=== PATIENT | male | born 1955 | race Caucasian/White ===

== ENCOUNTER 2018-03-25 07:59 | Outpatient (CLI) | payer MEDICARE, OTHER ==
[2018-03-25] MEDS ORDERED: ISOVUE-370 76%-LOCM 1 ML ONE (11:06)
== END 2018-03-25 08:00 | disposition home or self-care (01) ==
LOC: BICCT 07:59
DX: B18.2 Chronic viral hepatitis C (principal); K74.60 Unspecified cirrhosis of liver; R16.1 Splenomegaly, not elsewhere classified; K76.6 Portal hypertension; I83.90 Asymptomatic varicose veins of unspecified lower extremity; K86.89 Other specified diseases of pancreas
CPT/HCPCS: 74170

== ENCOUNTER 2018-10-01 07:34 | Outpatient (CLI) | payer MEDICARE, MEDICAID ==
--- NOTE | 2018-10-01 10:17 | ULT ---
ULTRASOUND HEPATIC DOPPLER: HISTORY: Hepatitis. COMPARISON: CT abdomen and pelvis from 03/25/2018. TECHNIQUE: Real-time song-scale, color Doppler, and spectral analysis of the abdomen was performed. FINDINGS: Hepatic echotexture is coarsened. There are numerous calcifications. The spleen is enlarged, measuring nearly 20 cm. There are splenic varices. Gallbladder wall thickness is normal. No sonographic Boles sign. Common bile duct is 4 mm. The pa ncreas is not well seen. The main portal vein is dilated with partial thrombosis. There is partial thrombosis of the splenic vein. IMPRESSION: 1. Partially thrombosed main portal vein and splenic vein. 2. Coarsened hepatic echotexture, suggesting cirrhosis. 3. Splenomegaly and portal hypertension. 4. Patent intrahepatic portal and hepatic veins. POS: [facility]
== END 2018-10-01 07:35 | disposition home or self-care (01) ==
LOC: BICULT 07:34
PROVIDERS: ATTEND Internal Medicine Transplant Hepatology
DX: B19.20 Unspecified viral hepatitis C without hepatic coma (principal); I81 Portal vein thrombosis; I82.890 Acute embolism and thrombosis of other specified veins; K76.89 Other specified diseases of liver; R16.1 Splenomegaly, not elsewhere classified; K76.6 Portal hypertension
CPT/HCPCS: 76705

== ENCOUNTER 2019-02-13 11:49 | Emergency (ER) | payer MEDICARE, MEDICAID ==
--- NOTE | 2019-02-13 13:16 | RAD ---
SACRUM AND COCCYX 3 VIEWS: Date: 02/13/19 HISTORY: Sacral pain. FINDINGS: SI joints are symmetric. There is no fracture of the sacrum or coccyx. IMPRESSION: No acute injury. POS: [facility]
--- NOTE | 2019-02-13 13:18 | RAD ---
LEFT HAND 3 VIEWS: Date: 02/13/19 HISTORY: Hand injury. FINDINGS: There is a slightly obliquely oriented fracture through the metacarpal head and neck region of the se cond metacarpal which appears acute. In addition, there is an obliquely oriented radial styloid fract ure and an avulsive-type injury of the ulnar styloid. There are arthritic changes noted. IMPRESSION: Acute appearing radial styloid and ulnar styloid fractures, also a probable acute to possibly subacut e injury involving the second metacarpal head/neck region. POS: [facility]
[2019-02-13] MEDS ORDERED: Ketorolac Tromethamine 30 MG/ML VIAL ONE (14:00)
== END 2019-02-13 14:21 | disposition home or self-care (01) ==
LOC: ERS 11:49
DX: S52.512A Displaced fracture of left radial styloid process, initial encounter for closed fracture (principal); S52.612A Displaced fracture of left ulna styloid process, initial encounter for closed fracture; S62.331A Displaced fracture of neck of second metacarpal bone, left hand, initial encounter for closed fracture; E11.40 Type 2 diabetes mellitus with diabetic neuropathy, unspecified; E11.43 Type 2 diabetes mellitus with diabetic autonomic (poly)neuropathy; K31.84 Gastroparesis; I10 Essential (primary) hypertension; D64.9 Anemia, unspecified; K72.90 Hepatic failure, unspecified without coma; K74.60 Unspecified cirrhosis of liver; W19.XXXA Unspecified fall, initial encounter
CPT/HCPCS: 72220; 96372; J1885

== ENCOUNTER 2019-02-15 08:57 | Day surgery (SDC) | payer MEDICARE, MEDICAID ==
[2019-02-14 13:52] VITALS: BMI 25.8
[2019-02-15] MEDS ORDERED: Fentanyl 250 MCG/5 ML VIAL ONE (11:23)
[2019-02-15] MEDS ORDERED: Bupivacaine PF 0.5% 30 ML VIAL ONE (11:26)
[2019-02-15] MEDS ORDERED: Bacitracin Zinc Ointment 30 gm TUBE ONE (11:27)
--- NOTE | 2019-02-15 12:12 | RAD ---
PORTABLE CHEST 1 VIEW: DATE: 02/15/2019. TIME: 10:59 a.m. HISTORY: Preoperative evaluation. FINDINGS: The heart size is borderline. There is evidence of old granulomatous disease. The lungs are expande d without lobar consolidation, pneumothoraces, or pleural effusions. IMPRESSION: No radiographic evidence of acute cardiopulmonary process. POS: [facility]
[2019-02-15] MEDS ORDERED: Neomycin-Polymyxin 1 ML AMP ONE (12:18)
[2019-02-15] MEDS ORDERED: Lidocaine 1% PF 5 ML VIAL ONE (13:19)
[2019-02-15] MEDS ORDERED: PROPOFOL 200 MG/20 ML VIAL ONE (13:19)
--- NOTE | 2019-02-15 13:20 | RAD ---
FExam:Left foot 3 views HISTORY: Postoperative exam. Amputation COMPARISON: None FINDINGS: There is soft tissue swelling. Subcutaneous air may be postoperative. There is destruction involving the second through fifth digits. Evaluation is limited due to positioning. There appears to be amputation of the second, third, and fourth metatarsals since the previous examination. Persisten t amputation and postoperative change involving the first metatarsal. IMPRESSION: Limited evaluation due to patient positioning. Interval amputation of the second through fourth metatarsal is suspected. Transcribed Date/Time: 02/15/2019 1:22 PM
--- NOTE | 2019-02-15 16:26 | OP ---
DATE OF PROCEDURE: 02/15/2019 PREOPERATIVE DIAGNOSES: 1. Chronic ulcer, left plantar foot. 2. Diabetic foot ulcer, left foot. 3. Plantarflexed metatarsals, 3 and 4, left foot. POSTOPERATIVE DIAGNOSES: 1. Chronic ulcer, left plantar foot. 2. Diabetic foot ulcer, left foot. 3. Plantarflexed metatarsals, 3 and 4, left foot. PROCEDURES PERFORMED: 1. Resection of metatarsal heads 3 and 4, left foot. 2. Debridement of full-thickness ulcer, left plantar foot. ANESTHESIA: General with local field block. HEMOSTASIS: Pneumatic ankle tourniquet at 300 mmHg. ESTIMATED BLOOD LOSS: Less than 20 mL. MATERIALS: 4-0 Vicryl and 3-0 Prolene. INJECTABLE: 20 mL of 0.5% Marcaine plain. DESCRIPTION OF PROCEDURE: The patient was brought into the operating room, placed on the operating table in supine position. A well-padded pneumatic ankle tourniquet was placed about the patient's left ankle following administration of IV anesthesia and local field block were given. Utilizing 20 mL of 0.5% Marcaine plain, the foot was then scrubbed, prepped, and draped in the usual aseptic manner. Esmarch bandage was used to exsanguinate the patient's left foot and the pneumatic ankle tourniquet was then inflated to 300 mmHg, which provided adequate hemostasis throughout the entire procedure. Next, attention was then directed to the dorsal aspect of the patient's left foot, where a 4 cm linear longitudinal incision was made between the third and fourth metatarsal heads. The incision was deepened to the level of the bone, where third and fourth metatarsal heads were carefully debrided of all soft tissue attachments, and they were resected using a sagittal bone saw. Fluoroscopy was used to assure that no remaining bone remain and none was noted at this time. The wound was irrigated with copious amounts of sterile normal saline and mixture. The skin was closed utilizing 4-0 Vicryl for deep closure and 3-0 Prolene for skin closure. Next, attention was then directed to the plantar aspect of the patient's foot where a 1.5 cm full-thickness ulcer was present and was debrided utilizing a #10 blade of all callus and necrotic tissue down to good bleeding tissue. A light compressive dressing was placed about the patient's left foot. The pneumatic ankle tourniquet was released with prompt hyperemic response was noted to all digits of the left foot. DISCHARGE SUMMARY: The patient tolerated the procedure and anesthesia and was transferred to the recovery room with vital signs stable and vascular status intact to all digits of the left foot. Following a period of postoperative monitoring, the patient is to be discharged home. Should he have any problems prior to the first postoperative appointment, he is advised to call and will be seen within 1 week of the procedure. Job ID: [id number]
--- NOTE | 2019-02-15 21:22 | EKG ---
Test Reason : PREOP Blood Pressure : / mmHG Vent. Rate : 082 BPM Atrial Rate : 082 BPM P-R Int : 208 ms QRS Dur : 066 ms QT Int : 412 ms P-R-T Axes : 015 -26 034 degrees QTc Int : 481 ms Normal sinus rhythm Prolonged QT Abnormal ECG When compared with ECG of 08-JUL-2014 02:01, No significant change was found Confirmed by GET MCDERMOTT, SFreddy ([id number]) on 02/15/2019 9:22:24 PM Referred By: LEROY Confirmed By:DR. Buzz DEUTSCH MD
--- NOTE | 2019-02-21 07:51 | PQF ---
[facility] POST DISCHARGE CLINICAL DOCUMENTATION IMPROVEMENT CLARIFICATION FORM w Todays Date: 02/17/19 w Patients Name DENZEL SHAIKH w w Admit Date 02/15/19 w Disch Date 02/15/19 Rn Unit Manager Name Dayron Friend Email: [email or web address] Cell: [phone] To be completed by Rn Unit Manager: Present Clinical Indicators - Signs / Symptoms Results and Location in Medical Record [ ] Documentation of: [ ] [ ] Documentation of: [ ] [ ] Documentation of: [ ] [ ] Documentation of: [ ] [ ] Risks [ ] [ ] [ ] Treatment [ ] Diabetic foot ulcer left foot Query for area (sq .cm) of debridement [ ] [ ] To be completed by Physician: ERICK MYRICK The documentation in this patients record requires clarification to ensure coding compliance and accuracy. Check the appropriate box and include in your discharge summary. [ ] [ ] [ ] [ ] Please check this box if this does not apply to this patient [ ] Unable to determine [ ] Other diagnosis: Review the following information and exercise your independent professional judgment in responding to the clarification. Based upon the clinical findings, risk factors, and treatment, please clarify if you are treating one of the above probable or suspected diagnoses. Physician Signature: Date Time MTDD
== END 2019-02-15 14:30 | disposition home or self-care (01) ==
LOC: SDC 08:57
PROVIDERS: ATTEND Podiatrist Foot & Ankle Surgery
PROC: 0QTP0ZZ Resection of Left Metatarsal, Open Approach (ICD-10-PCS; principal; 2019-02-15)
PROC: 0QTP0ZZ Resection of Left Metatarsal, Open Approach (ICD-10-PCS; 2019-02-15)
PROC: 0JBR0ZZ Excision of Left Foot Subcutaneous Tissue and Fascia, Open Approach (ICD-10-PCS; 2019-02-15)
DX: M21.6X2 Other acquired deformities of left foot (principal); E11.621 Type 2 diabetes mellitus with foot ulcer; L97.529 Non-pressure chronic ulcer of other part of left foot with unspecified severity; D68.9 Coagulation defect, unspecified; S52.572D Other intraarticular fracture of lower end of left radius, subsequent encounter for closed fracture with routine healing; S52.615D Nondisplaced fracture of left ulna styloid process, subsequent encounter for closed fracture with routine healing; Z79.84 Long term (current) use of oral hypoglycemic drugs; Z79.899 Other long term (current) drug therapy; W19.XXXD Unspecified fall, subsequent encounter
CPT/HCPCS: 36416; 71045; 76000; 93005; 93010; J0690; J2001; J2704; J3010; S0020

== ENCOUNTER 2019-02-25 12:51 | Day surgery (SDC) | payer MEDICARE, MEDICAID ==
[2019-02-24 11:46] VITALS: BMI 24.3
--- NOTE | 2019-02-25 13:43 | RAD ---
EXAM: Chest PA and lateral: HISTORY: Preoperative evaluation COMPARISON: 06/28/2015 FINDINGS: Stable old granulomatous disease. Heart size is normal. The lungs are clear. No confluent pneumonia, overt edema, pleural effusion, or other acute process. IMPRESSION: No significant acute intrathoracic disease.
[2019-02-25 13:54] LABS: #Eosinphils 0.3 thou/uL (0.0-0.7); #Lymphocytes 0.7 thou/uL (1.20-3.40); #Monocytes 0.3 thou/uL (0.11-0.59); %Basophils 0.9 % (0.0-1.0); %Eosinophils 9.4 % (0.0-10.0); %Lymphocytes 20.5 % (21.0-51.0); %Monocytes 9.5 % (0.0-10.0); %Neutrophils 59.7 % (42.0-75.0); Hemoglobin 8.7 g/dL (14.0-18.0); Mean Corpuscular Hemoglobin 30.5 pg (27.0-31.0); Mean Corpuscular Volume 89.7 fL (78.0-98.0); Mean Platelet Volume 10.6 fL (7.4-10.4); Platelet Count 48 thou/uL (130-400); RBC Distribution Width 15.7 % (11.5-14.5); Red Blood Cell (RBC) Count 2.85 mill/uL (4.70-6.10); White Blood Cell (WBC) Count 3.4 thou/uL (4.8-10.8)
[2019-02-25 14:22] LABS: Anion Gap 15 mmol/L (10-20); BUN (Urea Nitrogen) 62 mg/dL (8.4-25.7); Calc. Creatinine Clearance 51 mL/min (70-130); Calcium 9.6 mg/dL (7.8-10.44); Carbon Dioxide 27 mmol/L (23-31); Chloride 100 mmol/L (98-107); Estimated GFR-MDRD 47; Glucose 114 mg/dL (80-115); Potassium 4.7 mmol/L (3.5-5.1); Sodium 137 mmol/L (136-145)
[2019-02-25] MEDS ORDERED: PROPOFOL 200 MG/20 ML VIAL ONE (16:38)
[2019-02-25] MEDS ORDERED: ePHEDrine 50 MG/ML VIAL ONE (16:38)
[2019-02-25] MEDS ORDERED: Lidocaine 1% PF 5 ML VIAL ONE (16:38)
[2019-02-25] MEDS ORDERED: Bacitracin Zinc Ointment 30 gm TUBE ONE (16:40)
[2019-02-25] MEDS ORDERED: Bupivacaine PF 0.5% 30 ML VIAL ONE (16:40)
[2019-02-25] MEDS ORDERED: Fentanyl 100 MCG/2 ML VIAL ONE (16:44)
[2019-02-25] MEDS ORDERED: Thrombin 5000 UNITS/5 ML VIAL ONE (18:23)
--- NOTE | 2019-02-25 18:47 | RAD ---
Left wrist intraoperative fluoroscopy 3 views HISTORY: Fracture. FINDINGS: Intraoperative fluoroscopy was provided for internal fixation is performed by Dr. Rosas. Spot fluoroscopic images show operative placement of volar compression plate and screws transfixing a comminuted distal radial fracture, in anatomic alignment. Fluoroscopy time 75.5 seconds.
--- NOTE | 2019-02-28 11:15 | OP ---
DATE OF PROCEDURE: 02/25/2019 PREOPERATIVE DIAGNOSES: 1. Displaced distal radius fracture, 3 part. 2. Displaced ulna type 2 styloid fracture. 3. Moderate thrombocytopenia. PROCEDURES PERFORMED: 1. Open reduction and internal fixation of 3-part distal radius fracture. 2. Major bone grafting to distal radius fracture. 3. Only 2 mm scapholunate interval after reduction. 4. C-arm supervision. 5. Long-arm splint application. 6. Closed reduction of a distal ulna fracture. FINDINGS: Three-part distal radius fracture with 3-4 mm distal bone from the subarticular region requiring a low-profile hook type plate from the [employer] volar type and a displaced type 2 ulnar styloid fracture completely lying down when reduction was accomplished. No gross widening of scapholunate joint once reduction was accomplished, thus it was only a 2 mm scapholunate gap. DESCRIPTION OF PROCEDURE: After successful general endotracheal anesthesia, the limb was prepped and draped. Time-out was done appropriately. We exsanguinated the limb, inflated the tourniquet to 350 mmHg pressure. We then made a palmar incision centered over the flexor carpi radialis in the interval between the FCR and the radial artery to define the pronator quadratus. We then removed the distal pronator using a L-shaped incision ulnar base and retracted from the center of the field. We found the fracture. We elevated it. Found it was a 3-part fracture, so we protected the intra-articular split with a cross K-wire. It was again very thin 3-4 mm piece of bone, so once we elevated the fracture and reduced it, I pinned the preliminary. Then I took some bone graft, cancellous chips soaked in the patient's blood for 5 minutes, crushed this somewhat and then packed it more dorsal, then palmar to try to achieve slightly more tilt in the 15-degree dorsal tilt seen. Once this was done, we placed the low-profile special [employer] hook type plate up just articulating the palm in dorsal view, passed wire to hold it, extended it on the shaft, 5-hole subarticularly and then began internal fixation distally. First, we applied cortical screw, the first will be in the center portion of the holes, and once this was done, the plate was elevated off the bone approximately 1.5 cm. In order to achieve some tilt correction, we then put the first two screws in and drilled them and noted that they would be long enough for the cortex, we at the same time tightened the screws, removed the K-wire holding the radius fracture to the shaft. This took us from -15 over 15 degrees of dorsal tilt to a 3-degree dorsal tilt. This was acceptable. The patient then had the final 2 screws placed in to make sure there was no neurovascular compromise underneath it and it was not. We then released the tourniquet. We reviewed the x-rays, frontal plane, dorsal to palmar, and palmar to dorsal, as well as sagittal plane. The reduction was anatomic. We still 1.5 mm radial positive . The ulnar styloid appeared to be in excellent contact. We did not open it and did not internally fix it. Then the patient had the tourniquet deflated, one screw was exchanged, too long in the shaft, and the patient had the ulnar styloid fracture preserved nearly anatomic with only 1 mm separation where there was some crush. The patient then had the subcutaneous closure completed with a running 4-0 Monocryl and then the skin reapproximated with 4-0 nylon. Bulky dressing applied along with a sugar-tong splint. The patient left the operating room without evidence of anesthetic operative complication. Job ID: [id number]
--- NOTE | 2019-02-28 22:38 | EKG ---
Test Reason : PREOP Blood Pressure : / mmHG Vent. Rate : 112 BPM Atrial Rate : 110 BPM P-R Int : 000 ms QRS Dur : 066 ms QT Int : 324 ms P-R-T Axes : 000 -32 024 degrees QTc Int : 442 ms Accelerated Junctional rhythm Left axis deviation Minimal voltage criteria for LVH, may be normal variant Nonspecific ST abnormality Abnormal ECG When compared with ECG of 15-FEB-2019 10:59, Junctional rhythm has replaced Sinus rhythm Confirmed by Davina URENA ([id number]) on 02/28/2019 10:37:51 PM Referred By: YUNIER Confirmed By:Davina URENA
== END 2019-02-25 21:03 | disposition home or self-care (01) ==
LOC: SDC 12:51
PROVIDERS: ATTEND Orthopaedic Surgery Hand Surgery
PROC: 0PSJ04Z Reposition Left Radius with Internal Fixation Device, Open Approach (ICD-10-PCS; principal; 2019-02-25)
DX: S52.502A Unspecified fracture of the lower end of left radius, initial encounter for closed fracture (principal); S52.612A Displaced fracture of left ulna styloid process, initial encounter for closed fracture; E11.9 Type 2 diabetes mellitus without complications; Z91.81 History of falling
CPT/HCPCS: 25609; 71046; 73110; 76000; 80048; 85025; 93005; C1713 ×2; 36415; 93010; J0690; J2001; J2704; J3010; J3490; S0020

== ENCOUNTER 2019-03-29 09:04 | Outpatient (CLI) | payer MEDICARE, MEDICAID ==
--- NOTE | 2019-03-29 13:13 | MRI ---
MRI ABDOMEN WITH AND WITHOUT IV CONTRAST: HISTORY: Chronic hepatitis C. Cirrhosis of the liver. FINDINGS: There is irregularity of the liver surface, consistent with cirrhosis. There are AV shunts within th e liver. No enhancing liver mass is identified to suggest HCC. Multiple gallstones are present. Th e spleen is enlarged, measuring 19 cm. Thrombosis of the extrahepatic main portal vein, extending in to portions of the splenic vein and SMV is noted. The splenic vein is dilated. Splenic and gastroes ophageal varices are present. There is no evidence of ascites. No aneurysmal dilatation of the abdominal aorta is seen. No lympha denopathy is noted. There is a 2 cm right renal mass with high T1 and low T2 signal, consistent with hemorrhagic cyst. Bone marrow signal is normal. There are tiny siderotic nodules in the liver and spleen. IMPRESSION: 1. Cirrhosis of the liver without evidence of hepatocellular carcinoma. 2. Splenomegaly. 3. 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 4. Cholelithiasis. 5. Splenic and gastroesophageal varices. 6. A 2 cm right renal hemorrhagic cyst. POS: [facility]
== END 2019-03-29 09:05 | disposition home or self-care (01) ==
LOC: BICMRI 09:04
PROVIDERS: ATTEND Internal Medicine Transplant Hepatology
DX: B18.2 Chronic viral hepatitis C (principal); K74.60 Unspecified cirrhosis of liver; R16.1 Splenomegaly, not elsewhere classified; I81 Portal vein thrombosis; K80.20 Calculus of gallbladder without cholecystitis without obstruction; I85.00 Esophageal varices without bleeding; I86.8 Varicose veins of other specified sites; I82.890 Acute embolism and thrombosis of other specified veins; N28.1 Cyst of kidney, acquired
CPT/HCPCS: 74183; 82565

== ENCOUNTER 2019-08-16 20:04 | Inpatient (IN) | payer MEDICARE, MEDICAID ==
--- NOTE | 2019-08-16 20:34 | RAD ---
RADIOGRAPH CHEST 1 VIEW: DATE: 08/16/2019 HISTORY: 64-year-old male with fever FINDINGS: There are no airspace densities, pulmonary edema, pneumothorax, or cardiomegaly. The lateral costophr enic angles are sharp. IMPRESSION: No acute cardiopulmonary findings.
[2019-08-16 20:35] LABS: Hemoglobin 8.3 g/dL (14.0-18.0); Mean Corpuscular HGB CONC 35.7 g/dL (32.0-36.0); Mean Corpuscular Hemoglobin 32.8 pg (27.0-31.0); Mean Platelet Volume 11.4 fL (7.4-10.4); Platelet Count 30 thou/uL (130-400); RBC Distribution Width 14.3 % (11.5-14.5); Red Blood Cell (RBC) Count 2.54 mill/uL (4.70-6.10); White Blood Cell (WBC) Count 6.5 thou/uL (4.8-10.8)
[2019-08-16 20:51] LABS: #Lymphocytes 0.3 thou/uL (1.20-3.40); #Monocytes 0.5 thou/uL (0.11-0.59); #Neutrophils 5.8 thou/uL (1.40-6.50); %Basophils 0.2 % (0.0-1.0); %Eosinophils 0.3 % (0.0-10.0); %Lymphocytes 3.9 % (21.0-51.0); %Monocytes 7.3 % (0.0-10.0); %Neutrophils 88.3 % (42.0-75.0); Platelet Morphology Comment Appears Decreased
[2019-08-16] MEDS ORDERED: Piperacillin/Tazobactam 3.375 GM VIAL ONE (20:51)
[2019-08-16 20:57] LABS: ALT (SGPT) 19 U/L (8-55); AST (SGOT) 20 U/L (5-34); Albumin 3.5 g/dL (3.4-4.8); Alkaline Phosphatase 85 U/L (40-110); Anion Gap 17 mmol/L (10-20); BUN (Urea Nitrogen) 71 mg/dL (8.4-25.7); Bilirubin, Total 3.7 mg/dL (0.2-1.2); CK (CPK) 91 U/L (30-200); Calc. Creatinine Clearance 0 mL/min (70-130); Calcium 8.6 mg/dL (7.8-10.44); Carbon Dioxide 23 mmol/L (23-31); Chloride 88 mmol/L (98-107); Estimated GFR-MDRD 38; Globulin 3.7 g/dL (2.4-3.5); Glucose 549 mg/dL (80-115); Lipase 25 U/L (8-78); Potassium 4.6 mmol/L (3.5-5.1); Protein, Total 7.2 g/dL (5.8-8.1); Sodium 123 mmol/L (136-145)
--- NOTE | 2019-08-16 21:48 | RAD ---
Radiograph right foot 3 views: DATE: 08/16/2019 HISTORY: 64-year-old male with right foot wound. Traumatic injury after fall 2 days ago. COMPARISON: 04/18/2016. FINDINGS: Previously, there was amputation at the head of the second proximal phalanx. Now, there has been furt her erosion of that second proximal phalanx, with well-corticated margins, and only the proximal metaphysis and base remaining, except for a thin midline stalk of the diaphysis. Again noted is the severe deformity of the head of the first proximal phalanx such that there is nancy re valgus angulation of the first IP joint. It is difficult to evaluate for acute fracture in this location because of the distortion of anatomy. Elsewhere, there is no evidence of acute fracture or dislocation. The rest of the joints are unremark able. There is diffuse soft tissue edema, greater than on the prior study. No permeative, destructive osseous lesion or periostitis identified. Tiny erosion at medial base of first proximal p halanx. Diffuse osteopenia. Flat foot. IMPRESSION: 1. Diffuse soft tissue edema. 2. Old amputation and further chronic erosion of the proximal phalanx of second toe. 3. Severe valgus angulation at first distal interphalangeal joint. 4. No acute fracture identified. 5. Pes planus.
--- NOTE | 2019-08-16 21:53 | RAD ---
Radiograph left foot 3 views: DATE: 08/16/2019 HISTORY: 64-year-old male status post fall. Left foot wound. FINDINGS: Diffuse soft tissue edema. Flatfoot. Hammertoes. Absence of heads and necks of third and fourth metat arsals. The third and fourth proximal, middle, and distal phalanges remain. Chronic appearing dislocation of second MTP joint. Chronic Bony hypertrophy and deformity of bases of second and third proximal phalanges. Amputation at proximal-mid diaphysis of first metatarsal. No destructive osseous lesion identified. IMPRESSION: 1. No acute fracture identified. 2. Chronic changes, including dislocation, amputation, and resections of metatarsal heads. 3. Diffuse soft tissue edema.
[2019-08-16 22:41] LABS: Bacteria/HPF None Seen HPF (None Seen); Bilirubin Negative (Negative); Blood, Urine 1+ (Negative); Clarity Clear (Clear); Glucose, Urine (Dipstick) Greater than 1000 mg/dL (Negative); Leukocyte Negative Leu/uL (Negative); Nitrite Negative (Negative); Protein, Urine (Dipstick) 20 mg/dL (Neg-Trace); RBC/HPF 0-3 HPF (0-3); Squamous Epithelial None Seen HPF (0-3); Urobilinogen Normal mg/dL (Less than 2); WBC/HPF 0-3 HPF (0-3)
[2019-08-16] MEDS ORDERED: Insulin Regular 300 UNITS/3 ML VIAL ONE (23:19)
[2019-08-16] MEDS ORDERED: Dextrose 5% in Water 1,000 ML IV PRN (23:52)
[2019-08-16] MEDS ORDERED: HumaLOG 300 UNITS/3 ML VIAL SC PRN ×2 (23:52)
[2019-08-16] MEDS ORDERED: Acetaminophen 325 MG TAB PO PRN (23:52)
[2019-08-16] MEDS ORDERED: Dextrose 50% Abboject 50 ML SYRINGE SLOW IVP PRN (23:52)
[2019-08-17 00:16] VITALS: BMI 22.1
[2019-08-17] MEDS: Lactated Ringer's 1,000 ML IV SCH ×2 (00:48→10:08)
[2019-08-17 01:00] LABS: Lactic Acid 3.1 mmol/L (0.5-2.2)
[2019-08-17] MEDS ORDERED: TETANUS AND DIPHTHERIA TOX/PF 0.5 ML DISP.SYRIN IM ONE (01:00)
[2019-08-17] MEDS ORDERED: Promethazine 25 MG TAB PO PRN (01:17)
--- NOTE | 2019-08-17 03:04 | PDOC.FPRHP ---
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 Patient was seen at [facility] on 07/21 and started on a 7-day course of keflex and bactrim for LE cellulitis. He was seen again on 08/02 and his wounds had appeared improved at that time. Today he presents with drainage from the wounds on his feet bilaterally. He reports a measured temperature at home of 103. He denies pain at this time, as he cannot feel the bottom of his feet. He has a history of amputation of his first toe on his left foot and partial amputation of the second toe on his left foot. His most recent A1C from 2018 is 6.8%. Otherwise denies cp, sob, abdominal pain at this time. ED Course: Started on vanc, zosyn, 2L NS, 10u short acting insulin - Allergies/Adverse Reactions Allergies Allergy/AdvReac Type Severity Reaction Status Date / Time No Known Allergies Allergy Verified 02/24/19 11:46 - Home Medications Medication Instructions Recorded Confirmed Type Rifaximin [Xifaxan] 550 mg PO BID 08/29/13 08/17/19 History Spironolactone 200 mg PO QAM 08/29/13 08/17/19 History Pantoprazole [Protonix] 20 mg PO BID 09/16/14 08/17/19 History Promethazine HCl 25 mg PO TID PRN 09/18/15 08/17/19 History metFORMIN HCl [Glucophage] 1,000 mg PO BID-WM 09/18/15 08/17/19 History Furosemide [Lasix] 80 mg PO BID #0 tab 06/30/16 08/17/19 Rx METHadone HCl [Methadose] 40 mg PO QAM 02/14/19 08/17/19 History Insulin Glargine,Hum.Rec.Anlog 86 unit SQ QAM 02/24/19 08/17/19 History [Toujeo Solostar] Propranolol [Inderal] 2 tab PO DAILY 08/17/19 08/17/19 History - History PMHx: DM2, HTN, 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 denies: eye pain ENT: denies: nasal congestion, rhinorrhea Respiratory: denies: cough, congestion, shortness of breath Cardiovascular: denies: chest pain, palpitation Gastrointestinal: denies: nausea, vomiting, diarrhea, abdominal pain Genitourinary: denies: incontinence, dysuria Skin: reports: jaundice. denies: rashes Musculoskeletal: denies: pain, tenderness Neurological: reports: numbness (bilateral feet). denies: syncope, seizure Psychological: denies: anxiety, depression - Vital signs BP: [155/67] HR: [97] RR: [18] Tmax: [99.8] Pox: [98]% on [RA] Wt: [68.039kg] - Physical Exam Constitutional: NAD, awake, alert and oriented HEENT: grossly normal hearing, MMM -HEENT: sceral icterus present Neck: supple, trachea midline Chest: no-tender to palpation, no lesions Heart: RRR, normal S1/S2, other (murmur appreciated, 1+ pitting edema) Lungs: CTAB, no respiratory distress Abdomen: soft, non-tender Musculoskeletal: normal structure, normal tone Neurological: CN II-XII intact, other (numbness both feet bilaterally) Skin: other (jaundice, poor turgor; ulcerations draining on the bottom of both feet; left first toe and part of right second toe missing; discoloration of skin up to thigh) Heme/Lymphatic: no unusual bruising or bleeding, no purpura Psychiatric: normal mood and affect, good judgment and insight FMR H&P: Results - Labs Result Diagrams: 08/16/19 20:21 08/16/19 20:21 Lab results: WBC 6.5 thou/uL (4.8-10.8) 08/16/19 20:21 Hgb 8.3 g/dL (14.0-18.0) L 08/16/19 20:21 Hct 23.3 % (42.0-52.0) L 08/16/19 20:21 MCV 92.0 fL (78.0-98.0) 08/16/19 20:21 Plt Count 30 thou/uL (130-400) L 08/16/19 20:21 Neutrophils % 88.3 % (42.0-75.0) H 08/16/19 20:21 ESR Westergren 21 mm/hr (Less than 20) 08/16/19 20:54 Sodium 123 mmol/L (136-145) L 08/16/19 20:21 Potassium 4.6 mmol/L (3.5-5.1) 08/16/19 20:21 Chloride 88 mmol/L (98-107) L 08/16/19 20:21 Carbon Dioxide 23 mmol/L (23-31) 08/16/19 20:21 BUN 71 mg/dL (8.4-25.7) H 08/16/19 20:21 Creatinine 1.81 mg/dL (0.7-1.3) H 08/16/19 20:21 Glucose 549 mg/dL (80-115) H 08/16/19 20:21 Lactic Acid 3.1 mmol/L (0.5-2.2) H 08/17/19 00:35 Calcium 8.6 mg/dL (7.8-10.44) 08/16/19 20:21 Total Bilirubin 3.7 mg/dL (0.2-1.2) H 08/16/19 20:21 AST 20 U/L (5-34) 08/16/19 20:21 ALT 19 U/L (8-55) 08/16/19 20:21 Alkaline Phosphatase 85 U/L (40-110) 08/16/19 20:21 Creatine Kinase 91 U/L (30-200) 08/16/19 20:21 C-Reactive Protein 21.32 mg/dL (= or < 0.5) H 08/16/19 20:21 B-Natriuretic Peptide 149.2 pg/mL (0-100) H 08/16/19 20:21 Serum Total Protein 7.2 g/dL (5.8-8.1) 08/16/19 20:21 Albumin 3.5 g/dL (3.4-4.8) 08/16/19 20:21 Lipase 25 U/L (8-78) 08/16/19 20:21 Urine Ketones Negative mg/dL (Negative) 08/16/19 22:00 Urine Blood 1+ (Negative) A 08/16/19 22:00 Urine Nitrite Negative (Negative) 08/16/19 22:00 Ur Leukocyte Esterase Negative Trace/uL (Negative) 08/16/19 22:00 Urine RBC 0-3 HPF (0-3) 08/16/19 22:00 Urine WBC 0-3 HPF (0-3) 08/16/19 22:00 Ur Squamous Epith Cells None Seen HPF (0-3) 08/16/19 22:00 Urine Bacteria None Seen HPF (None Seen) 08/16/19 22:00 - Radiology Interpretation Chest x-ray Status: report reviewed by me (no acute cardiopulmonary findings) Other Status: report reviewed by me Additional comment: L foot xray: no acute fracture, chronic changes (dislocation, amputation, and resections of metatarsal heads), diffuse soft tissue edema R foot xray: diffuse soft tissue edema, old amputation and further chronic erosion of the proximal phalanx of second toe, severe valgus angulation at first distal interphalangeal joint FMR H&P: A/P - Problem List (1) Diabetic foot infection Current Visit: Yes Status: Acute Code(s): E11.628 - TYPE 2 DIABETES MELLITUS WITH OTHER SKIN COMPLICATIONS; L08.9 - LOCAL INFECTION OF THE SKIN AND SUBCUTANEOUS TISSUE, UNSP (2) Chronic back pain Current Visit: No Status: Chronic Code(s): M54.9 - DORSALGIA, UNSPECIFIED; G89.29 - OTHER CHRONIC PAIN (3) Cirrhosis Current Visit: No Status: Chronic Code(s): K74.60 - UNSPECIFIED CIRRHOSIS OF LIVER Qualifiers: Ascites presence: without ascites (4) Insulin dependent diabetes mellitus Current Visit: No Status: Chronic Code(s): E11.9 - TYPE 2 DIABETES MELLITUS WITHOUT COMPLICATIONS; Z79.4 - GROUP HOME (CURRENT) USE OF INSULIN (5) Methadone dependence Current Visit: No Status: Chronic Code(s): F11.20 - OPIOID DEPENDENCE, UNCOMPLICATED - Plan Patient is a 64M with PMHx significant for DM2, HTN, 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 #Bilateral Diabetic foot infections -started on vanc and zosyn in the ED, continue -pharmacy helping to dose, will monitor troughs -patient reports fever at home, afebrile here -WBC wnl 6.5 -IVF -NPO at midnight -patient had foot surgery with Dr. Duncan February 2019, will consult and appreciate recs -wound care consult -does not appear that patient has had a recent tetanus injection, ordered #DM2, with hyperglycemia -BG 549 -January 2019 A1C 6.8%, on tuojeo at home -continue home meds -ISS -accuchecks #HTN -BP in ED 155/67 -continue home meds -continue to monitor #HLD -continue home meds #Cirrhosis 2/2 Hep C -continue home meds -will avoid liver toxicity medications #Thrombocytopenia -platelets 30, likely 2/2 liver cirrhosis -will continue to monitor #Opiate dependence -continue methadone DVT ppx:scds Fluids: LR @ 100 Dispo: inpatient for iv abx and surgical consult Code: full FMR H&P: Upper Level - Pertinent history 64 yo M here with complaint of b/l foot wound redness. He was dx'd with infected DM2 related foot wounds at the beginning of Jul and treated with 2 weeks of PO abx. At that time he was seen in clinic and abx were stopped due to resolution of over infection. At that time he was referred to wound care, however this was not started by pt. He noticed over the past 2 days a worsening of the redness and swelling in his legs. In the ED he was noted to have significant erythema to both feet. He was started on IV vanc and zosyn and blood cultures were collected. PMHx DM2 Cirrhosis Hx of Hep C, treated Hx of Rheumatic fever Opiate dependence HTN Surgical Hx Previous toe amputations on both feet Social hx previous etoh abuse. No tobacco. Previous marijuana use - Pertinent findings See international account manager note for full ROS, PE, vitals, and labs ROS General denies fever or chills CV Denies CP, palpitation, or chronic peripheral edema Resp complains of SOB. Denies cough GI denies melanotic stool, BRBPR, n/v/d/c or abdominal pain denies increased frequency or dysuria Neuro complains of numbness in both feet. Extremities complains of redness in both feet. PE General A&O x4, NAD HEENT NCAT, no jaundice CV RRR, no murmur Resp CTA, no respiratory distress Abd Abdomen is distended, however soft and non tender. No fluid wave appreciated. Extremities Erythema and edema on both feet. Foot ulcer on plantar surface of both feet. No exudate. Equal pedal pulses. No asterixis Neuro no focal deficits, CN II-XII intact - Plan Date/Time: 08/17/19 0258 I, Fabio Marques DO, have evaluated this patient and agree with findings/plan as outlined by international account manager resident. Pertinent changes/additions are listed here. 1. Bilateral pedal cellulitis, failed outpatient therapy - Plan to admit for IV abx and surgical evaluation. Would expect debridement in the morning - Admit to medicine, NPO at midnight - Continue abx until cultures result. 2. DM2 - uncontrolled at this time, however A1c from March of this year shows A1c less than 8. It is most likely that his elevated glucose is related to the infection - restart home meds - cover with SSI - accucheck achs 3. Opiate dependence - continue methadone 4. Cirrhosis - does not appear to be decompensated at this time - continue home meds See international account manager portion for management of other stable chronic conditions Code Full Diet NPO at midnight PPx SCD Dispo: overall prognosis for this hospitalization is good. Would expect length of stay to be 2-3 days pending surgical evaluation
[2019-08-17] MEDS: Piperacillin/Tazobactam 3.375 GM in Sodium Chloride 0.9% 100 ML IVPB SCH ×4 (03:09→20:10)
[2019-08-17 05:40] LABS: #Eosinphils 0.1 thou/uL (0.0-0.7); #Lymphocytes 0.4 thou/uL (1.20-3.40); #Monocytes 0.6 thou/uL (0.11-0.59); #Neutrophils 4.6 thou/uL (1.40-6.50); %Eosinophils 1.4 % (0.0-10.0); %Lymphocytes 6.3 % (21.0-51.0); %Monocytes 10.8 % (0.0-10.0); %Neutrophils 81.5 % (42.0-75.0); Hemoglobin 7.8 g/dL (14.0-18.0); Mean Corpuscular HGB CONC 35.7 g/dL (32.0-36.0); Mean Corpuscular Hemoglobin 33.4 pg (27.0-31.0); Mean Corpuscular Volume 93.5 fL (78.0-98.0); Mean Platelet Volume 10.3 fL (7.4-10.4); Platelet Count 39 thou/uL (130-400); RBC Distribution Width 14.3 % (11.5-14.5); Red Blood Cell (RBC) Count 2.32 mill/uL (4.70-6.10); White Blood Cell (WBC) Count 5.6 thou/uL (4.8-10.8)
[2019-08-17 05:55] LABS: Anion Gap 13 mmol/L (10-20); BUN (Urea Nitrogen) 63 mg/dL (8.4-25.7); Calc. Creatinine Clearance 44 mL/min (70-130); Calcium 8.4 mg/dL (7.8-10.44); Carbon Dioxide 23 mmol/L (23-31); Chloride 96 mmol/L (98-107); Estimated GFR-MDRD 44; Glucose 271 mg/dL (80-115); Potassium 3.8 mmol/L (3.5-5.1); Sodium 128 mmol/L (136-145)
--- NOTE | 2019-08-17 06:14 | PDOC.FM ---
- Subjective Subjective: Pt's main concern this morning is a jagged tooth that is bother his tongue. He denies any fever, chills over night. Minimal pain in lower extremities. - Objective Vital Signs & Weight: Vital Signs (12 hours) Temp Pulse Resp BP BP Pulse Ox 08/17/19 04:00 97.7 F 86 18 113/54 L 98 08/17/19 01:02 98 08/17/19 00:16 97.8 F 86 18 147/57 H 98 Weight Weight 68.039 kg Result Diagrams: 08/17/19 05:06 08/17/19 05:06 Phys Exam - Physical Examination Constitutional: NAD HEENT: oral pharynx no lesions Mild scleral icterus, no tongue lesions, multiple dental carries Neck: no nodes, no JVD, full ROM Respiratory: clear to auscultation bilateral Cardiovascular: RRR holosystolic murmur, known to pt Distended, moderately tympanic Musculoskeletal: edema present 1+ bilateral LE edema Neurological: non-focal, moves all 4 limbs Psychiatric: A&O x 3 Deviation from normal: Bilateral feet dressings are clean and dry, LE w/ venous stasis changes Dx/Plan (1) Thrombocytopenia Code(s): D69.6 - THROMBOCYTOPENIA, UNSPECIFIED Status: Acute (2) Diabetic foot infection Code(s): E11.628 - TYPE 2 DIABETES MELLITUS WITH OTHER SKIN COMPLICATIONS; L08.9 - LOCAL INFECTION OF THE SKIN AND SUBCUTANEOUS TISSUE, UNSP Status: Acute (3) Diabetic foot ulcer Code(s): E11.621 - TYPE 2 DIABETES MELLITUS WITH FOOT ULCER; L97.509 - NON- PRESSURE CHRONIC ULCER OTH PRT UNSP FOOT W UNSP SEVERITY Status: Chronic Qualifiers: Diabetes mellitus type: type 2 Laterality: left (4) Hepatic cirrhosis due to chronic hepatitis C infection Code(s): B18.2 - CHRONIC VIRAL HEPATITIS C; K74.60 - UNSPECIFIED CIRRHOSIS OF LIVER Status: Chronic (5) Insulin dependent diabetes mellitus Code(s): E11.9 - TYPE 2 DIABETES MELLITUS WITHOUT COMPLICATIONS; Z79.4 - AUTOCLAVE OPERATOR (CURRENT) USE OF INSULIN Status: Chronic (6) Methadone dependence Code(s): F11.20 - OPIOID DEPENDENCE, UNCOMPLICATED Status: Chronic (7) Acute worsening of stage 3 chronic kidney disease Code(s): N18.3 - CHRONIC KIDNEY DISEASE, STAGE 3 (MODERATE) Status: Acute - Plan Plan: Bilateral Diabetic foot infections - Cont vanc and zosyn - WBC wnl 5.6 with left shift - IVF - NPO at midnight - patient had foot surgery with Dr. Duncan February 2019, will consult and appreciate recs - wound care consult DM2, with hyperglycemia - BG 549 upon arrival - January 2019 A1C 6.8%, on tuojeo and metformin at home - ISS - accuchecks Acute injury on chronic CKD 3 - Cr improved this morning approaching baseline - Likely improved 2/2 fluid resuscitation - pre-renal azotemia present HTN - BP in ED 155/67 - continue home meds - continue to monitor HLD - continue home meds Cirrhosis 2/2 Hep C - continue home meds - will avoid liver toxicity medications - coags ordered, will calculate MELD and Child-Polanco once once labs result Thrombocytopenia - platelets 30, likely 2/2 liver cirrhosis - will continue to monitor Opiate dependence - continue methadone DVT ppx:scds Fluids: LR @ 100 Dispo: inpatient for iv abx and surgical consult Code: full Addendum - Attending - Attending Attestation Date/Time: 08/17/19 2969 I personally evaluated the patient and discussed the management with Dr. Uribe. I agree with the History, Examination, Assessment and Plan documented above with any addition or exceptions noted below. Pt with foul smelling drainage from foot. Consulting Dr. Lucy Duncan who has operated on the patient's foot previously. Continue antibiotics.
[2019-08-17] MEDS ORDERED: Prevnar 13-Val Conj/PF 0.5 ML SYRINGE IM ONE (09:00)
[2019-08-17] MEDS ORDERED: FLU VACC TS2019-20(65YR UP)/PF 180 MCG/0.5 ML SYRINGE IM ONE (09:00)
[2019-08-17] MEDS ORDERED: VANCOMYCIN HCL IVPB SCH (09:00)
[2019-08-17] MEDS ORDERED: SODIUM CHLORIDE 0.9% IVPB SCH (09:00)
[2019-08-17] MEDS: metFORMIN 500 MG TAB PO SCH ×2 (09:57→18:04)
[2019-08-17] MEDS: Furosemide 80 MG TAB PO SCH ×2 (09:57→21:36)
[2019-08-17] MEDS: Rifaximin 550 MG TAB PO SCH ×2 (09:57→21:36)
[2019-08-17] MEDS: Propranolol 10 MG TAB PO SCH (09:57)
[2019-08-17] MEDS: METHadone HCl 10 MG TAB PO SCH (09:58)
[2019-08-17] MEDS: Insulin Glargine 68 UNITS in Pre-Filled Syringe 1 EACH SC SCH ×2 (09:59→12:48)
[2019-08-17 11:13] LABS: PTT 31.1 SEC (22.9-36.1); Prothrombin Time 22.2 SEC (12.0-14.7)
[2019-08-17] MEDS ORDERED: Lorazepam 2 MG/ML VIAL SLOW IVP SCH (16:00)
[2019-08-17 18:34] LABS: Lactic Acid 2.8 mmol/L (0.5-2.2)
--- NOTE | 2019-08-17 18:58 | MRI ---
MRI OF LEFT FOOT WITH AND WITHOUT IV CONTRAST: 08/17/19 PROVIDED CLINICAL HISTORY: Wound, evidence for osteomyelitis. FINDINGS: Correlation is made with foot radiographs dated 08/16/19. Examination is extremely limited due to patient motion. There is postoperative change of the second, third and fourth metatarsal heads noted as well as an amputation of the first ray at the mid first me tatarsal. There is no definite signal alteration within the regional marrow to suggest osteomyelitis within limitations established above. There is possibly a fluid collection within the plantar soft ti ssues at the level of the second metatarsal head, although this is not completely certain. This leeann ures possibly 7 mm. No gross tenosynovial fluid or joint effusion is evident. IMPRESSION: Markedly limited exam without definite evidence for osteomyelitis. Possible 7 mm plantar soft tissue fluid collection at the base of remaining second metatarsal distally. Correlate with concerns for abs cess. POS: GOYO
--- NOTE | 2019-08-17 19:08 | MRI ---
MRI OF RIGHT FOOT WITH AND WITHOUT IV CONTRAST: 08/17/19 PROVIDED CLINICAL HISTORY: Evidence for osteomyelitis, wound near toes. FINDINGS: Comparison is made with radiographs dated 08/16/19. Presumed postsurgical absence of the distal second digit. Evaluation is limited by patient motion. There is diminished signal intensity on T1 weighted sequence s and increased signal intensity on fluid sensitive sequences involving the great toe distal phalanx with associated contrast enhancement. No definite additional regional signal abnormality is evident i nvolving the marrow. Diffuse nonspecific signal alteration within the intrinsic foot musculature. No gross evidence for regional joint effusion or soft tissue fluid collection. IMPRESSION: 1. Limited study due to patient motion. 2. Signal alteration involving the great toe distal phalanx, compatible with osteomyelitis in th e appropriate clinical context. POS: GOYO
[2019-08-17] MEDS ORDERED: Gadobenate Dimeglumine 529 MG/1 ML (20ML VIAL) ONE (20:51)
[2019-08-17] MEDS: Vancomycin HCl 1 GM in Premix Bag 1 BAG IVPB SCH (21:36)
[2019-08-18] MEDS: Piperacillin/Tazobactam 3.375 GM in Sodium Chloride 0.9% 100 ML IVPB SCH ×4 (03:10→20:52)
[2019-08-18] MEDS: Lactated Ringer's 1,000 ML IV SCH ×3 (03:15→16:55)
--- NOTE | 2019-08-18 06:21 | PDOC.FM ---
- Subjective Subjective: Patient denies any complaints this morning. Denies any abdominal pain, nausea, vomiting, bright red blood or dark stools. Patient stated that he has been anemic in the past but does not recall it if he ever needed transfusions. Patient reported that he felt the day of his admission falling flat onto a tile floor and not hitting anything on the way down. Denies any injury from this aside from some small bruises on his abdomen. . - Objective Vital Signs & Weight: Vital Signs (12 hours) Temp Pulse Resp BP Pulse Ox 08/18/19 04:00 98.2 F 66 18 122/57 L 98 08/17/19 23:44 98.7 F 66 18 102/64 99 08/17/19 20:00 98.3 F 67 18 120/64 96 Weight Admit Weight 68.039 kg Weight 68.039 kg Result Diagrams: 08/18/19 05:38 08/18/19 05:38 Phys Exam - Physical Examination Constitutional: NAD scleral icterus Neck: full ROM Respiratory: clear to auscultation bilateral Cardiovascular: RRR systolic murmur Gastrointestinal: soft, positive bowel sounds mildly distended, 2 areas of ecchymosis to left and right mid abd Musculoskeletal: no edema, pulses present Neurological: non-focal bilateral UE tremor Psychiatric: A&O x 3 Skin: cap refill <2 seconds Deviation from normal: jaundice Dx/Plan (1) Thrombocytopenia Code(s): D69.6 - THROMBOCYTOPENIA, UNSPECIFIED Status: Acute (2) Diabetic foot infection Code(s): E11.628 - TYPE 2 DIABETES MELLITUS WITH OTHER SKIN COMPLICATIONS; L08.9 - LOCAL INFECTION OF THE SKIN AND SUBCUTANEOUS TISSUE, UNSP Status: Acute (3) Diabetic foot ulcer Code(s): E11.621 - TYPE 2 DIABETES MELLITUS WITH FOOT ULCER; L97.509 - NON- PRESSURE CHRONIC ULCER OTH PRT UNSP FOOT W UNSP SEVERITY Status: Chronic Qualifiers: Diabetes mellitus type: type 2 Laterality: left (4) Hepatic cirrhosis due to chronic hepatitis C infection Code(s): B18.2 - CHRONIC VIRAL HEPATITIS C; K74.60 - UNSPECIFIED CIRRHOSIS OF LIVER Status: Chronic (5) Insulin dependent diabetes mellitus Code(s): E11.9 - TYPE 2 DIABETES MELLITUS WITHOUT COMPLICATIONS; Z79.4 - WEIGHT COUNT OPERATOR (CURRENT) USE OF INSULIN Status: Chronic (6) Methadone dependence Code(s): F11.20 - OPIOID DEPENDENCE, UNCOMPLICATED Status: Chronic (7) Acute worsening of stage 3 chronic kidney disease Code(s): N18.3 - CHRONIC KIDNEY DISEASE, STAGE 3 (MODERATE) Status: Acute - Plan Plan: Bilateral Diabetic foot infections - Cont vanc and zosyn - WBC wnl 5.6 with left shift - IVF - NPO at midnight - patient had foot surgery with Dr. Duncan February 2019, consulted - appreciate recs - wound care consult - MRI yesterday: left foot w/ possible 7mm abscess, right foot with signal abnormality to distal phalynx of great toe concerning for osteo - poor images due to motion artifact DM2, with hyperglycemia - BG 549 upon arrival - January 2019 A1C 6.8%, on tuojeo and metformin at home - Holding metformin right now w/ recent ANJEL - ISS - accuchecks Acute injury on chronic CKD 3 - Cr 1.73 - Likely improved 2/2 fluid resuscitation - pre-renal azotemia present - Expect further improvement w/ PRBC transfusion HTN - continue home meds - continue to monitor HLD - continue home meds Cirrhosis 2/2 Hep C - continue home meds - will avoid liver toxicity medications - coags ordered, MELD 25, Child-Polanco C Thrombocytopenia - platelets 25, likely 2/2 liver cirrhosis - will continue to monitor and transfuse if known bleeding source or planned procedure Opiate dependence - continue methadone DVT ppx:scds Fluids: LR @ 100 Dispo: inpatient for iv abx, blood transfusion, and surgical consult Code: full Addendum - Attending - Attending Attestation Date/Time: 08/18/19 1040 I personally evaluated the patient and discussed the management with Dr. Uribe. I agree with the History, Examination, Assessment and Plan documented above with any addition or exceptions noted below. Pt with new staph aureus bacteremia. Continue IV antibiotics. MRI demonstrates osteomyelitis in the foot. Awaiting podiatry input for possible surgery. Pt is also having a worsening anemia and thrombocytopenia. Will transfuse 1 unit prbc and get fobt. If positive, will consult GI.
[2019-08-18 06:24] LABS: #Lymphocytes 0.3 thou/uL (1.20-3.40); #Monocytes 0.3 thou/uL (0.11-0.59); %Eosinophils 1.6 % (0.0-10.0); %Lymphocytes 10.9 % (21.0-51.0); %Monocytes 9.7 % (0.0-10.0); %Neutrophils 77.8 % (42.0-75.0); Hemoglobin 6.8 g/dL (14.0-18.0); Mean Corpuscular HGB CONC 35.1 g/dL (32.0-36.0); Mean Corpuscular Hemoglobin 33.4 pg (27.0-31.0); Mean Corpuscular Volume 95.2 fL (78.0-98.0); Mean Platelet Volume 10.5 fL (7.4-10.4); Platelet Count 25 thou/uL (130-400); RBC Distribution Width 14.3 % (11.5-14.5); Red Blood Cell (RBC) Count 2.02 mill/uL (4.70-6.10); White Blood Cell (WBC) Count 2.5 thou/uL (4.8-10.8)
[2019-08-18 06:41] LABS: ALT (SGPT) 11 U/L (8-55); AST (SGOT) 9 U/L (5-34); Albumin 2.4 g/dL (3.4-4.8); Alkaline Phosphatase 55 U/L (40-110); Anion Gap 10 mmol/L (10-20); BUN (Urea Nitrogen) 64 mg/dL (8.4-25.7); Bilirubin, Total 1.8 mg/dL (0.2-1.2); Calc. Creatinine Clearance 40 mL/min (70-130); Calcium 7.8 mg/dL (7.8-10.44); Carbon Dioxide 26 mmol/L (23-31); Chloride 101 mmol/L (98-107); Estimated GFR-MDRD 40; Globulin 2.7 g/dL (2.4-3.5); Glucose 141 mg/dL (80-115); Potassium 3.5 mmol/L (3.5-5.1); Protein, Total 5.1 g/dL (5.8-8.1); Sodium 133 mmol/L (136-145)
[2019-08-18] MEDS: metFORMIN 500 MG TAB PO SCH ×2 (06:49→16:20)
[2019-08-18 06:57] LABS: Band 14 % (5-11); Lymphocytes 24 % (21-51); Monocytes 4 % (0-10); Neutrophil 58 % (42-75)
[2019-08-18 08:24] LABS: Iron 14 ug/dL (65-175); Iron Binding Capacity, Total 184 mcg/dL (261-462)
[2019-08-18 08:48] LABS: Ferritin 207.19 ng/mL (22-322)
[2019-08-18] MEDS: Insulin Glargine 68 UNITS in Pre-Filled Syringe 1 EACH SC SCH (09:00)
[2019-08-18] MEDS: Propranolol 10 MG TAB PO SCH (09:01)
[2019-08-18] MEDS: METHadone HCl 10 MG TAB PO SCH (09:01)
[2019-08-18] MEDS: Rifaximin 550 MG TAB PO SCH ×2 (09:02→20:52)
[2019-08-18] MEDS: Furosemide 80 MG TAB PO SCH ×2 (09:02→20:52)
[2019-08-18] MEDS ORDERED: HumaLOG 300 UNITS/3 ML VIAL SC PRN (09:34)
[2019-08-18] MEDS ORDERED: Lidocaine Patch Removal 1 EACH TOP SCH (11:15)
[2019-08-18] MEDS ORDERED: Lidocaine 5% Patch TD SCH (11:15)
[2019-08-18 12:11] LABS: MDiff Complete? YES
[2019-08-18] MEDS: HumaLOG 300 UNITS/3 ML VIAL SC PRN (12:15)
--- NOTE | 2019-08-18 14:27 | PQF ---
CLINICAL DOCUMENTATION IMPROVEMENT CLARIFICATION FORM: ICD-10 Updated PLEASE DO AN ADDENDUM TO THE PROGRESS NOTE WITH ANY DOCUMENTATION UPDATES OR ADDITIONS AND CARRY THROUGH TO DC SUMMARY. THANK YOU. DATE: 08/18/19 ATTN: DR. SALCIDO Please exercise your independent, professional judgment in responding to the clarification form. Clinical indicators are provided on the bottom of this form for your review Please check appropriate box(es): [X ] Sepsis due to: (Pna, UTI, gangrenous gall bladder, etc.) _Diabetic foot infection [ ] SIRS due to non-infectious process (please specify etiology) [ ] with organ dysfunction [ ] without organ dysfunction [ ] Severe sepsis with acute organ dysfunction of: (Examples: respiratory failure, encephalopathy, acute kidney failure, other) [ ] Septic Shock [ ] Localized infection without sepsis [ ] Other diagnosis [ ] Unable to determine In addition, please specify: Present on Admission (POA): [X] Yes [ ] No [ ] Unable to determine For continuity of documentation, please document condition throughout progress notes and discharge summary. Thank You. CLINICAL INDICATORS - SIGNS / SYMPTOMS / LABS ER NOTE 08/16: "SEPSIS 2/2 DIABETIC FOOT INFECTION" BANDS 103: 14 LACTIC ACID 08/17: 3.1 CRP 10/: 21.32 TEMP 103.1 PER PATIENT REPORT (ER NOTE 08/16) RISKS: FOOT WOUND (ER NOTE 08/16) H/O DIABETES (ER NOTE 08/16) TREATMENT: IV VANCOMYCIN (ER-PRESENT) IV FLUIDS (ER-PRESENT) IV ZOSYN (ER-PRESENT) BLOOD CULTURES (08/16) (This form is maintained as a part of the permanent medical record) 2014 [employer]. All Rights Reserved [email or web address] Office: [phone] [facility]
--- NOTE | 2019-08-18 15:24 | CT ---
EXAM: CT Abdomen Pelvis WO Con PROVIDED CLINICAL HISTORY: Abdominal pain, anemia post fall. COMPARISON: 03/25/2018. FINDINGS: Lack of intravenous contrast limits sensitivity for evaluation of the parenchymal organs. Small right and tiny left pleural effusions are seen. There is consolidation present at the right jose e g base which may be related to either atelectasis or pneumonia. Minimal passive atelectasis is present at the left lung base. Multiple gallbladder calculi are again seen. The gallbladder is mildly distended in length measuring 10.7 cm. Multiple calcified granulomata are again seen in the liver and spleen. The spleen remains enlarged measuring 19.5 cm in craniocaudal dimensions. There is enlargement of the splenic and portal veins with calcifications in the portal and splenic veins which may be related to calcified chronic thrombus in these veins. Evaluation for occlusion of the portal veins on this ex am is unable to be determined given lack of intravenous contrast. There is prominence of the superior mesenteric vein. This is a stable finding compared to study in 2018. Partial thrombus was se en in the portal vein on prior exam in 2018. There is a lobulated area of diminished attenuation seen within the anterior aspect of the medial seg ment left hepatic lobe. This area was seen on the prior MRI examination, and the area was suggestive of an arteriovenous shunt versus vascular malformation. Prominent varices are again seen throughout the abdomen primarily in the left upper quadrant. There is fatty replacement of the pancreas. Bilateral adrenal glands demonstrate grossly normal nonen hanced CT appearance. There is a hyperdense lesion in the midportion of the right kidney shown to represent a hyperdense re nal cystic lesion on prior MRI related to Bosniak type II cystic renal lesion. There is a small amount of intraperitoneal free fluid as well as evidence of mesenteric edema. Vascular calcifications are seen in the abdominal aorta and involving the iliac arteries. Urinary bladder is distended and has a normal CT appearance. Loops of small bowel are normal in caliber. Degenerative changes are seen in the spine. Remote compression fracture of the L4 vertebral body is s een. There is evidence of gynecomastia bilaterally. IMPRESSION: 1. Cirrhosis and splenomegaly with evidence of portal hypertension. Varices are again seen, and there is again enlargement of the splenic, portal, and superior mesenteric veins. Calcifications are again seen in the splenic and portal veins which may be related to chronic thrombus. IV contrast was not administered which limits evaluation of the previously noted thrombus in the splenic and portal veins seen on the study in 2018 and limits evaluation for portal or splenic vein occlusion.. 2. Consolidation right lung base which could be related to atelectasis versus pneumonia. 3. Small right and tiny left pleural effusions. Atelectasis is present at the left lung base. 4. Small amount of ascites. Mild edema seen in the mesentery as well. 5. 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 6. Mild distention of the gallbladder with evidence of cholelithiasis.
[2019-08-18 19:21] LABS: Hemoglobin 9.3 g/dL (14.0-18.0); Mean Corpuscular HGB CONC 34.4 g/dL (32.0-36.0); Mean Corpuscular Hemoglobin 32.8 pg (27.0-31.0); Mean Corpuscular Volume 95.4 fL (78.0-98.0); Platelet Count 38 thou/uL (130-400); RBC Distribution Width 14.2 % (11.5-14.5); Red Blood Cell (RBC) Count 2.82 mill/uL (4.70-6.10); White Blood Cell (WBC) Count 5.5 thou/uL (4.8-10.8)
[2019-08-18 20:44] LABS: Vancomycin, Trough 14.7 ug/mL
[2019-08-18] MEDS: Vancomycin HCl 1 GM in Premix Bag 1 BAG IVPB SCH (22:03)
[2019-08-18] MEDS: Lidocaine 5% Patch TD SCH (23:56)
[2019-08-19] MEDS: Lactated Ringer's 1,000 ML IV SCH ×2 (01:56→13:53)
[2019-08-19] MEDS: Piperacillin/Tazobactam 3.375 GM in Sodium Chloride 0.9% 100 ML IVPB SCH ×3 (03:38→16:12)
[2019-08-19] MEDS: Propranolol 10 MG TAB PO SCH (06:20)
[2019-08-19 06:21] LABS: #Eosinphils 0.1 thou/uL (0.0-0.7); #Lymphocytes 0.4 thou/uL (1.20-3.40); #Monocytes 0.5 thou/uL (0.11-0.59); #Neutrophils 3.7 thou/uL (1.40-6.50); %Basophils 0.2 % (0.0-1.0); %Eosinophils 2.5 % (0.0-10.0); %Lymphocytes 7.8 % (21.0-51.0); %Monocytes 10.7 % (0.0-10.0); %Neutrophils 78.8 % (42.0-75.0); Hemoglobin 8.7 g/dL (14.0-18.0); Mean Corpuscular HGB CONC 34.6 g/dL (32.0-36.0); Mean Corpuscular Hemoglobin 33.1 pg (27.0-31.0); Mean Corpuscular Volume 95.6 fL (78.0-98.0); Mean Platelet Volume 10.8 fL (7.4-10.4); Red Blood Cell (RBC) Count 2.62 mill/uL (4.70-6.10); White Blood Cell (WBC) Count 4.7 thou/uL (4.8-10.8)
--- NOTE | 2019-08-19 06:25 | PDOC.FM ---
- Subjective Subjective: Pt denies any complaints today. Abdominal pain is improved from yesterday. Denies any fevers or chills. Foot pain is controlled. - Objective Vital Signs & Weight: Vital Signs (12 hours) Temp Pulse Resp BP Pulse Ox 08/19/19 04:00 99.0 F 69 16 131/82 92 L 08/19/19 00:00 98.4 F 67 17 122/55 L 93 L 08/18/19 20:00 97.8 F 65 16 120/65 97 Weight Admit Weight 68.039 kg Weight 68.039 kg I&O: 08/17/19 08/18/19 08/19/19 06:59 06:59 06:59 Intake Total 1920 Output Total 700 Balance 1220 Result Diagrams: 08/19/19 06:04 08/19/19 06:04 Phys Exam - Physical Examination Constitutional: NAD HEENT: moist MMs Neck: full ROM Respiratory: clear to auscultation bilateral Cardiovascular: RRR Short systolic murmur Gastrointestinal: soft, positive bowel sounds Mild diffuse tenderness Musculoskeletal: pulses present 1+ bilateral LE edema Neurological: moves all 4 limbs Psychiatric: normal affect, A&O x 3 Deviation from normal: Jaundice Dx/Plan (1) Thrombocytopenia Code(s): D69.6 - THROMBOCYTOPENIA, UNSPECIFIED Status: Acute (2) Diabetic foot infection Code(s): E11.628 - TYPE 2 DIABETES MELLITUS WITH OTHER SKIN COMPLICATIONS; L08.9 - LOCAL INFECTION OF THE SKIN AND SUBCUTANEOUS TISSUE, UNSP Status: Acute (3) Diabetic foot ulcer Code(s): E11.621 - TYPE 2 DIABETES MELLITUS WITH FOOT ULCER; L97.509 - NON- PRESSURE CHRONIC ULCER OTH PRT UNSP FOOT W UNSP SEVERITY Status: Chronic Qualifiers: Diabetes mellitus type: type 2 Laterality: left (4) Hepatic cirrhosis due to chronic hepatitis C infection Code(s): B18.2 - CHRONIC VIRAL HEPATITIS C; K74.60 - UNSPECIFIED CIRRHOSIS OF LIVER Status: Chronic (5) Insulin dependent diabetes mellitus Code(s): E11.9 - TYPE 2 DIABETES MELLITUS WITHOUT COMPLICATIONS; Z79.4 - AUDIT CLERK (CURRENT) USE OF INSULIN Status: Chronic (6) Methadone dependence Code(s): F11.20 - OPIOID DEPENDENCE, UNCOMPLICATED Status: Chronic (7) Acute worsening of stage 3 chronic kidney disease Code(s): N18.3 - CHRONIC KIDNEY DISEASE, STAGE 3 (MODERATE) Status: Acute - Plan Plan: Bilateral Diabetic foot infections - Cont vanc and zosyn - WBC wnl 5.6 with left shift - IVF - LR @ 100 - patient had foot surgery with Dr. Duncan February 2019, consulted - bringing pt to OR today - wound care consult - MRI: left foot w/ possible 7mm abscess, right foot with signal abnormality to distal phalynx of great toe concerning for osteo - poor images due to motion artifact - Blood cultures + staph aureus, susceptible to vanc, no change in abx regimen DM2, with hyperglycemia - January 2019 A1C 6.8%, on tuojeo and metformin at home - Holding metformin right now w/ recent ANJEL - Holding insulin for AM as PO for surg - moderate sliding scale - accuchecks, ACHS Acute injury on chronic CKD 3 - Cr 1.77 - Likely improved 2/2 fluid resuscitation - pre-renal azotemia present - Expect further improvement w/ PRBC transfusion and continued IVF HTN - continue home meds - continue to monitor HLD - continue home meds Cirrhosis 2/2 Hep C - continue home meds - will avoid liver toxicity medications - coags ordered, MELD 25, Child-Polanco C Thrombocytopenia - platelets 25, likely 2/2 liver cirrhosis - will continue to monitor and transfuse if known bleeding source or planned procedure Opiate dependence - continue methadone DVT ppx:scds Fluids: LR @ 100 Dispo: inpatient for iv abx, blood transfusion, and surgical consult Code: full Addendum - Attending - Attending Attestation Date/Time: 08/19/19 1016 I personally evaluated the patient and discussed the management with Dr. Uribe. I agree with the History, Examination, Assessment and Plan documented above with any addition or exceptions noted below. Pt will be going for surgery today with Dr. Duncan. Continue antibiotics. Will need ID consult for antibiotic recs. H/H is improved.
[2019-08-19 06:26] LABS: Platelet Count 42 thou/uL (130-400)
[2019-08-19 06:44] LABS: ALT (SGPT) 13 U/L (8-55); AST (SGOT) 17 U/L (5-34); Albumin 2.6 g/dL (3.4-4.8); Alkaline Phosphatase 67 U/L (40-110); Anion Gap 14 mmol/L (10-20); BUN (Urea Nitrogen) 61 mg/dL (8.4-25.7); Bilirubin, Total 2.6 mg/dL (0.2-1.2); Calc. Creatinine Clearance 40 mL/min (70-130); Carbon Dioxide 25 mmol/L (23-31); Chloride 100 mmol/L (98-107); Estimated GFR-MDRD 39; Globulin 3.2 g/dL (2.4-3.5); Glucose 73 mg/dL (80-115); Potassium 3.6 mmol/L (3.5-5.1); Protein, Total 5.8 g/dL (5.8-8.1); Sodium 135 mmol/L (136-145)
[2019-08-19] MEDS: METHadone HCl 10 MG TAB PO SCH (08:06)
[2019-08-19] MEDS: metFORMIN 500 MG TAB PO SCH ×2 (08:07→16:13)
[2019-08-19] MEDS: Furosemide 80 MG TAB PO SCH ×2 (08:08→21:16)
[2019-08-19] MEDS: Rifaximin 550 MG TAB PO SCH ×2 (08:08→21:16)
[2019-08-19] MEDS ORDERED: Lidocaine 5% Patch TD SCH (09:00)
[2019-08-19] MEDS ORDERED: Bupivacaine PF 0.5% 30 ML VIAL ONE (10:37)
[2019-08-19] MEDS ORDERED: Fentanyl 100 MCG/2 ML VIAL ONE ×2 (11:23→11:42)
[2019-08-19] MEDS ORDERED: Ondansetron HCl/PF 4 MG/2 ML Vial IVP PRN (12:30)
[2019-08-19] MEDS ORDERED: Promethazine HCl 25 MG/ML VIAL IM PRN (12:30)
[2019-08-19] MEDS ORDERED: Promethazine HCl 25 MG/ML VIAL SLOW IVP PRN (12:30)
[2019-08-19] MEDS: Lidocaine Patch Removal 1 EACH TOP SCH (13:53)
--- NOTE | 2019-08-19 15:22 | EKG ---
Test Reason : Blood Pressure : / mmHG Vent. Rate : 098 BPM Atrial Rate : 098 BPM P-R Int : 182 ms QRS Dur : 066 ms QT Int : 346 ms P-R-T Axes : 053 -25 040 degrees QTc Int : 441 ms Sinus rhythm with Premature supraventricular complexes and Premature ventricular complexes or Fusion complexes T wave abnormality, consider anterior ischemia Abnormal ECG Confirmed by AMANDO MCDERMOTT, PRISCA ([id number]), newspaper photo editor RIVERA GAY ([id number]) on 08/19/2019 3:22:12 PM Referred By: Confirmed By:PRISCA GOEL MD
--- NOTE | 2019-08-19 16:19 | OP ---
DATE OF PROCEDURE: 08/19/2019 PREOPERATIVE DIAGNOSES: 1. Osteomyelitis, right great toe. 2. Osteomyelitis, left foot. 3. Abscess, left foot. 4. Diabetic ulceration, bilateral feet. POSTOPERATIVE DIAGNOSES: 1. Osteomyelitis, right great toe. 2. Osteomyelitis, left foot. 3. Abscess, left foot. 4. Diabetic ulceration, bilateral feet. PROCEDURES PERFORMED: Amputation right great toe, incision and drainage left foot, and resection of second metatarsal head left foot. ANESTHESIA: MAC with local anesthetic. HEMOSTASIS: Pneumatic ankle tourniquet at 250 mmHg bilateral. INJECTABLES: 30 mL of 0.5% Marcaine plain. DESCRIPTION OF PROCEDURE: The patient was brought into the operating room and placed on the operating table in supine position. A well-padded pneumatic ankle tourniquet was placed about the patient's right ankle. Following administration of IV anesthesia, local foot block was given utilizing 30 mL of 0.5% Marcaine plain. The foot was then scrubbed, prepped, and draped in usual aseptic manner. Esmarch bandage was used to exsanguinate the patient's right foot and the pneumatic ankle tourniquet was inflated to 250 mmHg, which provided adequate hemostasis throughout the entire procedure. Next, attention was then directed to the distal aspect of the patient's right foot, where a semi-elliptical incision was encompassing the plantar ulceration and necrotic bone. The incision was deepened to the level of bone with care being taken to retract all vital neurovascular structures. All bleeders were cauterized as necessary. Next, the proximal phalanx was then carefully resected to allow for primary closure. The wound was irrigated with pulse lavage and the subcuticular structures were reapproximated and coapted utilizing 3-0 Vicryl and the skin was closed utilizing 3-0 Prolene in a simple interrupted suture technique. Light compressive dressing was placed about the patient's right foot, and the pneumatic ankle tourniquet was released with prompt hyperemic response noted to all digits of the right foot. Next, attention was then directed to the patient's left foot. An Esmarch bandage was used to exsanguinate the patient's left foot and the pneumatic ankle tourniquet was then inflated to 250 mmHg. A plantar incision was then made through the abscess to allow proper drainage. At this time, it was noted that the abscess tunnelled to the mid foot and the incision was opened to allow proper exposure of the abscess. All necrotic tissue was resected and passed from the operative field. At this time, it was noted that the second metatarsal head was necrotic and was passed from the operative field utilizing sagittal bone saw. The wound was irrigated with pulse lavage and mixture and the wound was packed with 1-inch iodoform gauze and a light compressive dressing. The pneumatic ankle tourniquet was released with prompt hyperemic response noted to all digits of the left foot. DISCHARGE SUMMARY: The patient tolerated the procedure and anesthesia and was transferred to the recovery room with vital signs stable and vascular status intact to all digits of both feet. The patient will be transferred back to his room. He will remain in-house for IV treatment and receive a wound VAC from Wound Care tomorrow for the left foot. The patient should be discharged with home health at time of discharge. Job ID: [id number]
[2019-08-19] MEDS: Vancomycin HCl 1 GM in Premix Bag 1 BAG IVPB SCH (21:16)
[2019-08-20] MEDS: Lactated Ringer's 1,000 ML IV SCH ×3 (00:25→20:41)
[2019-08-20] MEDS: Piperacillin/Tazobactam 3.375 GM in Sodium Chloride 0.9% 100 ML IVPB SCH ×5 (01:45→21:25)
[2019-08-20] MEDS: Lidocaine 5% Patch TD SCH (02:13)
--- NOTE | 2019-08-20 06:48 | PDOC.FM ---
- Subjective Subjective: Pt states he is doing well since surgery. Denies much post operative pain at this time. Denies any fevers or chills. States his right sided pain from fall has improved. - Objective Vital Signs & Weight: Vital Signs (12 hours) Temp Pulse Resp BP Pulse Ox 08/20/19 04:58 98.4 F 69 18 141/53 H 93 L 08/20/19 00:00 98.3 F 72 16 125/50 L 94 L 08/19/19 20:00 98.0 F 62 16 123/61 97 Weight Admit Weight 68.039 kg Weight 68.039 kg I&O: 08/18/19 08/19/19 08/20/19 06:59 06:59 06:59 Intake Total 1920 Output Total 700 Balance 1220 Result Diagrams: 08/20/19 08:48 08/20/19 08:48 Phys Exam - Physical Examination Constitutional: NAD HEENT: moist MMs Neck: full ROM Respiratory: clear to auscultation bilateral Cardiovascular: RRR Gastrointestinal: soft, non-tender Musculoskeletal: pulses present 1+ pitting edema to bilateral LE Right chest wall pain from fall prior to admission Neurological: non-focal, moves all 4 limbs Psychiatric: normal affect, A&O x 3 Skin: no rash, cap refill <2 seconds Dx/Plan (1) Thrombocytopenia Code(s): D69.6 - THROMBOCYTOPENIA, UNSPECIFIED Status: Acute (2) Diabetic foot infection Code(s): E11.628 - TYPE 2 DIABETES MELLITUS WITH OTHER SKIN COMPLICATIONS; L08.9 - LOCAL INFECTION OF THE SKIN AND SUBCUTANEOUS TISSUE, UNSP Status: Acute (3) Diabetic foot ulcer Code(s): E11.621 - TYPE 2 DIABETES MELLITUS WITH FOOT ULCER; L97.509 - NON- PRESSURE CHRONIC ULCER OTH PRT UNSP FOOT W UNSP SEVERITY Status: Chronic Qualifiers: Diabetes mellitus type: type 2 Laterality: left (4) Hepatic cirrhosis due to chronic hepatitis C infection Code(s): B18.2 - CHRONIC VIRAL HEPATITIS C; K74.60 - UNSPECIFIED CIRRHOSIS OF LIVER Status: Chronic (5) Insulin dependent diabetes mellitus Code(s): E11.9 - TYPE 2 DIABETES MELLITUS WITHOUT COMPLICATIONS; Z79.4 - PENITENTIARY (CURRENT) USE OF INSULIN Status: Chronic (6) Methadone dependence Code(s): F11.20 - OPIOID DEPENDENCE, UNCOMPLICATED Status: Chronic (7) Acute worsening of stage 3 chronic kidney disease Code(s): N18.3 - CHRONIC KIDNEY DISEASE, STAGE 3 (MODERATE) Status: Acute (8) Bacteremia due to Staphylococcus aureus Code(s): R78.81 - BACTEREMIA Status: Acute - Plan Plan: Bilateral Diabetic foot infections - Cont vanc and zosyn - WBC wnl 5.6 with left shift - IVF - LR @ 100 - Dr. Duncan performed right great toe amputation, left metatarsal head resection and abscess I&D today - pt to have wound vac placed to left foot today - wound care consulting - will need to discuss w/ Dr. Duncan about recommendations for duration of IV therapy which will be based on extent of surgical debridement Bacteremia - Staph Aureus likely 2/2 osteomyelitis - 2 sets of cultures that were positive 2 of 2 for staph aureus - Vancomycin already being administered Anemia - Normocytic iron deficiency - Received 1 unit PRBC this admission - Trending Hgb - + FOBT - Hx of esophageal varices, does not recall when last scope was - Will speak with GI today regarding necessity for endoscopic eval inpt vs outpt DM2, with hyperglycemia - January 2019 A1C 6.8%, on tuojeo and metformin at home - Holding metformin right now w/ recent ANJEL - accuchecks, ACHS Acute injury on chronic CKD 3 - Likely improved 2/2 fluid resuscitation - pre-renal azotemia present - Expect further improvement w/ continued IVF HTN - continue home meds - continue to monitor HLD - continue home meds Cirrhosis 2/2 Hep C - continue home meds - will avoid liver toxicity medications - coags ordered, MELD 25, Child-Polanco C Thrombocytopenia - platelets 25, likely 2/2 liver cirrhosis - will continue to monitor and transfuse if known bleeding source or planned procedure Opiate dependence - continue methadone DVT ppx:scds Fluids: LR @ 100 Dispo: inpatient for iv abx and post op care Code: full Addendum - Attending - Attending Attestation Date/Time: 08/20/19 3880 I personally evaluated the patient and discussed the management with Dr. Uribe. I agree with the History, Examination, Assessment and Plan documented above with any addition or exceptions noted below. Pt with staph aureus bacteremia. Continue antibiotics. Consult Dr. Merritt. Pt should get a wound vac today on the foot. Will f/u with podiatry recs. FOBT was positive, however h/h has stabilized. Will continue to trend. He will benefit from GI consult as outpt unless his h/h begins dropping again.
[2019-08-20] MEDS: HumaLOG 300 UNITS/3 ML VIAL SC PRN ×2 (07:13→18:25)
[2019-08-20] MEDS: Rifaximin 550 MG TAB PO SCH ×2 (08:49→20:40)
[2019-08-20] MEDS: Propranolol 10 MG TAB PO SCH (08:49)
[2019-08-20] MEDS: metFORMIN 500 MG TAB PO SCH ×2 (08:49→16:22)
[2019-08-20] MEDS: Furosemide 80 MG TAB PO SCH ×2 (08:49→20:40)
[2019-08-20] MEDS: METHadone HCl 10 MG TAB PO SCH (08:50)
[2019-08-20 09:06] LABS: Hemoglobin 9.5 g/dL (14.0-18.0); Mean Corpuscular HGB CONC 34.5 g/dL (32.0-36.0); Mean Corpuscular Hemoglobin 32.8 pg (27.0-31.0); Mean Corpuscular Volume 95.1 fL (78.0-98.0); Mean Platelet Volume 10.4 fL (7.4-10.4); Platelet Count 47 thou/uL (130-400); RBC Distribution Width 14.1 % (11.5-14.5); Red Blood Cell (RBC) Count 2.89 mill/uL (4.70-6.10); White Blood Cell (WBC) Count 5.4 thou/uL (4.8-10.8)
[2019-08-20 09:07] LABS: #Eosinphils 0.1 thou/uL (0.0-0.7); #Lymphocytes 0.5 thou/uL (1.20-3.40); #Monocytes 0.6 thou/uL (0.11-0.59); #Neutrophils 4.2 thou/uL (1.40-6.50); %Eosinophils 2.2 % (0.0-10.0); %Lymphocytes 9.9 % (21.0-51.0); %Monocytes 10.3 % (0.0-10.0); %Neutrophils 77.7 % (42.0-75.0)
[2019-08-20 09:25] LABS: ALT (SGPT) 10 U/L (8-55); AST (SGOT) 13 U/L (5-34); Albumin 2.5 g/dL (3.4-4.8); Alkaline Phosphatase 68 U/L (40-110); Anion Gap 11 mmol/L (10-20); BUN (Urea Nitrogen) 57 mg/dL (8.4-25.7); Bilirubin, Total 2.2 mg/dL (0.2-1.2); Calc. Creatinine Clearance 41 mL/min (70-130); Calcium 7.8 mg/dL (7.8-10.44); Carbon Dioxide 28 mmol/L (23-31); Chloride 100 mmol/L (98-107); Estimated GFR-MDRD 40; Globulin 3.4 g/dL (2.4-3.5); Glucose 214 mg/dL (80-115); Potassium 3.3 mmol/L (3.5-5.1); Protein, Total 5.9 g/dL (5.8-8.1); Sodium 136 mmol/L (136-145)
[2019-08-20] MEDS ORDERED: Potassium Chloride 20 MEQ TAB PO SCH (09:45)
[2019-08-20] MEDS: Insulin Glargine 68 UNITS in Pre-Filled Syringe 1 EACH SC SCH (12:33)
[2019-08-20] MEDS: Lidocaine Patch Removal 1 EACH TOP SCH (13:58)
[2019-08-20 20:34] LABS: Vancomycin, Trough 21.9 ug/mL
[2019-08-20] MEDS ORDERED: Vancomycin HCl 750 MG in Sodium Chloride 0.9% 250 ML 250 ML IVPB SCH (21:00)
[2019-08-21] MEDS: Lidocaine 5% Patch TD SCH (00:23)
[2019-08-21] MEDS: Piperacillin/Tazobactam 3.375 GM in Sodium Chloride 0.9% 100 ML IVPB SCH ×2 (03:33→09:56)
[2019-08-21] MEDS: Lactated Ringer's 1,000 ML IV SCH ×2 (05:15→05:55)
[2019-08-21 05:42] LABS: #Eosinphils 0.2 thou/uL (0.0-0.7); #Lymphocytes 0.5 thou/uL (1.20-3.40); #Monocytes 0.5 thou/uL (0.11-0.59); #Neutrophils 3.1 thou/uL (1.40-6.50); %Basophils 0.4 % (0.0-1.0); %Eosinophils 4.1 % (0.0-10.0); %Lymphocytes 10.7 % (21.0-51.0); %Neutrophils 72.9 % (42.0-75.0); Hemoglobin 9.1 g/dL (14.0-18.0); Mean Corpuscular Hemoglobin 32.9 pg (27.0-31.0); Mean Platelet Volume 9.6 fL (7.4-10.4); Platelet Count 46 thou/uL (130-400); RBC Distribution Width 14.4 % (11.5-14.5); Red Blood Cell (RBC) Count 2.78 mill/uL (4.70-6.10); White Blood Cell (WBC) Count 4.3 thou/uL (4.8-10.8)
[2019-08-21 05:59] LABS: ALT (SGPT) 9 U/L (8-55); AST (SGOT) 14 U/L (5-34); Albumin 2.5 g/dL (3.4-4.8); Alkaline Phosphatase 63 U/L (40-110); Anion Gap 13 mmol/L (10-20); BUN (Urea Nitrogen) 52 mg/dL (8.4-25.7); Bilirubin, Total 2.1 mg/dL (0.2-1.2); Calc. Creatinine Clearance 45 mL/min (70-130); Calcium 7.7 mg/dL (7.8-10.44); Carbon Dioxide 25 mmol/L (23-31); Chloride 99 mmol/L (98-107); Estimated GFR-MDRD 45; Globulin 3.4 g/dL (2.4-3.5); Glucose 87 mg/dL (80-115); Potassium 3.1 mmol/L (3.5-5.1); Protein, Total 5.9 g/dL (5.8-8.1); Sodium 134 mmol/L (136-145)
--- NOTE | 2019-08-21 06:03 | PDOC.FM ---
- Subjective Subjective: Pt denies pain in his feet. No fevers or chills. Notes worsening right elbow pain. - Objective Vital Signs & Weight: Vital Signs (12 hours) Temp Pulse Resp BP Pulse Ox 08/21/19 03:35 98.0 F 63 16 96 08/20/19 20:00 98.3 F 68 18 119/62 96 Weight Admit Weight 68.039 kg Weight 68.039 kg I&O: 08/19/19 08/20/19 08/21/19 06:59 06:59 06:59 Intake Total 1920 1600 Output Total 700 1150 Balance 1220 450 Result Diagrams: 08/21/19 04:53 08/21/19 04:53 Phys Exam - Physical Examination Constitutional: NAD HEENT: sclera anicteric dry MM Neck: full ROM Respiratory: clear to auscultation bilateral Cardiovascular: RRR systolic murmur Gastrointestinal: soft, non-tender Musculoskeletal: edema present (1+ bilateral LE) Right elbow with mild swelling and erythema - traumatic from fall full ROM in rt elbow Neurological: non-focal, moves all 4 limbs Psychiatric: normal affect, A&O x 3 Deviation from normal: Dusky skin color Dx/Plan (1) Thrombocytopenia Code(s): D69.6 - THROMBOCYTOPENIA, UNSPECIFIED Status: Acute (2) Diabetic foot infection Code(s): E11.628 - TYPE 2 DIABETES MELLITUS WITH OTHER SKIN COMPLICATIONS; L08.9 - LOCAL INFECTION OF THE SKIN AND SUBCUTANEOUS TISSUE, UNSP Status: Acute (3) Diabetic foot ulcer Code(s): E11.621 - TYPE 2 DIABETES MELLITUS WITH FOOT ULCER; L97.509 - NON- PRESSURE CHRONIC ULCER OTH PRT UNSP FOOT W UNSP SEVERITY Status: Chronic Qualifiers: Diabetes mellitus type: type 2 Laterality: left (4) Hepatic cirrhosis due to chronic hepatitis C infection Code(s): B18.2 - CHRONIC VIRAL HEPATITIS C; K74.60 - UNSPECIFIED CIRRHOSIS OF LIVER Status: Chronic (5) Insulin dependent diabetes mellitus Code(s): E11.9 - TYPE 2 DIABETES MELLITUS WITHOUT COMPLICATIONS; Z79.4 - RESIDENTIAL (CURRENT) USE OF INSULIN Status: Chronic (6) Methadone dependence Code(s): F11.20 - OPIOID DEPENDENCE, UNCOMPLICATED Status: Chronic (7) Acute worsening of stage 3 chronic kidney disease Code(s): N18.3 - CHRONIC KIDNEY DISEASE, STAGE 3 (MODERATE) Status: Acute (8) Bacteremia due to Staphylococcus aureus Code(s): R78.81 - BACTEREMIA Status: Acute - Plan Plan: Bilateral Diabetic foot infections - Cont vanc and zosyn - WBC wnl 5.6 with left shift - IVF - LR @ 100 - Dr. Duncan performed right great toe amputation, left metatarsal head resection and abscess I&D today - wound care consulting - Dr. Merritt consulted Bacteremia - Staph Aureus likely 2/2 osteomyelitis - 2 sets of cultures that were positive 2 of 2 for staph aureus - Vancomycin already being administered - Further abx per René mcnair Anemia - Normocytic iron deficiency - Received 1 unit PRBC this admission - Trending Hgb - + FOBT - Hx of esophageal varices, does not recall when last scope was - Following transfusion hgb has further increased and remained stable - will defer GI workout to outpt [facility] pain from fall - Abd ct r/o rib fractures or intra-abdominal injury - Right elbow xr today DM2, with hyperglycemia - January 2019 A1C 6.8%, on tuojeo and metformin at home - Holding metformin right now w/ recent ANJEL - accuchecks ACHS Acute injury on chronic CKD 3 - Likely improved 2/2 fluid resuscitation - pre-renal azotemia present - Expect further improvement w/ continued IVF HTN - continue home meds - continue to monitor HLD - continue home meds Cirrhosis 2/2 Hep C - continue home meds - will avoid liver toxicity medications - coags ordered, MELD 25, Child-Polanco C Thrombocytopenia - platelets 25, likely 2/2 liver cirrhosis - will continue to monitor and transfuse if known bleeding source or planned procedure Opiate dependence - continue methadone DVT ppx:scds Fluids: LR @ 100 Dispo: inpatient for iv abx and post op care Code: full Addendum - Attending - Attending Attestation Date/Time: 08/21/19 2678 I personally evaluated the patient and discussed the management with Dr. Uribe. I agree with the History, Examination, Assessment and Plan documented above with any addition or exceptions noted below. The patient has a wound vac in place. ID consult is pending. Getting x-ray of elbow with persistent pain. Replacing potassium.
[2019-08-21] MEDS ORDERED: Potassium Chloride 20 MEQ TAB PO SCH ×2 (07:30→16:00)
[2019-08-21] MEDS: Aspirin 81 mg Enteric Coated Tablet PO SCH (09:53)
[2019-08-21] MEDS: metFORMIN 500 MG TAB PO SCH ×2 (09:53→16:47)
[2019-08-21] MEDS: Propranolol 10 MG TAB PO SCH (09:54)
[2019-08-21] MEDS: Rifaximin 550 MG TAB PO SCH ×2 (09:54→21:38)
[2019-08-21] MEDS: Furosemide 80 MG TAB PO SCH ×2 (09:54→21:38)
[2019-08-21] MEDS: METHadone HCl 10 MG TAB PO SCH (09:55)
[2019-08-21] MEDS: Insulin Glargine 68 UNITS in Pre-Filled Syringe 1 EACH SC SCH (09:56)
[2019-08-21] MEDS ORDERED: Magnesium 2 GM/50 ML 2 GM in Premix Bag 1 BAG IVPB SCH (10:30)
--- NOTE | 2019-08-21 11:54 | RAD ---
4 VIEWS RIGHT ELBOW: Date: 08/21/19 HISTORY: Right elbow pain and swelling after a fall. FINDINGS: No fracture or dislocation is seen. A few lucencies overlie the elbow, most likely attributable to ov erlying skin folds. There is a tiny corticated osseous density adjacent to the medial epicondyle, whi ch is likely related to prior injury. IMPRESSION: No acute osseous abnormality right elbow. POS: OFF
[2019-08-21] MEDS: HumaLOG 300 UNITS/3 ML VIAL SC PRN (12:26)
--- NOTE | 2019-08-21 15:09 | CON ---
DATE OF CONSULTATION: 08/21/2019 REASON FOR CONSULTATION: Bacteremia. HISTORY OF PRESENT ILLNESS: A 64-year-old history of prior IV drug use with chronic hepatitis C. The hepatitis C has been treated successfully a few years ago and he was left with liver cirrhosis with portal hypertension and ascites. 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 Dr. Lucy Duncan performed amputation of the right great toe and resection of the second metatarsal head, left foot, on August 19. Currently, the patient has mild pain. No headaches, visual symptoms, sore throat, odynophagia, or dysphagia. He has a dental pain in the right side upper molar. No dyspnea or chest pain. No cough or sputum production. Chronic low back pain, which is unchanged. Abdominal distention, which is usual. Voiding without difficulty. No dysuria. He is still ambulatory. He has a little bit of pain in the knees, but not much. PAST MEDICAL HISTORY: IV drug use in the past in remission on methadone maintenance, chronic hep C treated and cured recently, type 2 diabetes, liver cirrhosis with portal hypertension, gastroparesis, esophageal varices, chronic ascites, episodes of encephalopathy in the past. PAST SURGICAL HISTORY: He has had esophageal variceal banding x3 and a right toe amputation in the past. SOCIAL HISTORY: Former drug use. Lives with brother in [facility]. No smoking history. Used to drink every sober for 15 years. FAMILY HISTORY: Noncontributory. ALLERGIES: NO KNOWN DRUG ALLERGIES. MEDICATION LIST: 1. Ecotrin. 2. Lasix. 3. Insulin. 4. Lactated Ringer's. 5. Metformin. 6. Methadone. 7. Zosyn. 8. Rifaximin. 9. Vancomycin. PHYSICAL EXAMINATION: VITAL SIGNS: T-max 99, currently 98.6, blood pressure 130/60, pulse 71, respirations 16 to 20, and O2 saturation 95%. SKIN: Spider angiomata in the anterior chest. Stasis dermatitis in lower extremities. Area of ulceration at the bottom aspect of the right great toe and at the tip of the second toe, the great toe was amputated with the metatarsal head amputation site. A fresh surgical wound noted. No lymphadenopathy. HEENT: Alopecia. Ocular movements conjugate. Pale conjunctivae. Nasal passages patent. Oral cavity with numerous teeth in place with some decay and gum disease. Discolored enamel. NECK: Supple. No jugular vein distention. No carotid bruits. LUNGS: Symmetric. Clear breath sounds. HEART: S1 and S2 regular rate. No S3 or S4. ABDOMEN: Distended with ascites, but not tender. No organomegaly. No bladder distention. No genital swelling or edema. No joint inflammatory activity outside the area of involvement. EXTREMITIES: Pulses are 1+ in popliteal and dorsalis pedis. Edema 1+ in the left lower extremity. Moves extremities equally on command. Cognitive function appears to be intact. No asterixis. Right elbow with area of inflammatory change in tenderness at the olecranon site with swelling, likely bursa inflammation. LABORATORY DATA: Sodium 134, potassium 3.1, creatinine 1.54 which is decreased from admission when it was 1.8. Bilirubin 2.1. Transaminases and alkaline phosphatase within normal limits. Albumin 2.5. Urinalysis with glycosuria, otherwise normal. Vancomycin trough 21. Microbiology with MSSA, 2/2 sets of blood cultures. No samples obtained from the toes. IMAGING: There is an elbow x-ray with no acute osseous abnormality. There is a lower extremity MRI from August 17 with limited exam, but no evidence of osteomyelitis in the left foot and the right foot with great toe distal phalanx osteomyelitis. Abdomen and pelvis CT from August 18, cirrhosis and splenomegaly with portal hypertension, varices seen, calcification in the splenic and portal veins likely related to chronic thrombus, consolidation in right lung base, small right and tiny left pleural effusions, small amount of ascites, mild distention of gallbladder. ASSESSMENT: 1. IV drug use in remission with chronic hepatitis C cured after treatment recently. 2. Cirrhosis as the aftermath of his chronic hepatitis C plus alcohol use. 3. Portal hypertension with varices. 4. Ascites. 5. Type 2 diabetes with neuropathy and feet complications as noted above and recent amputations. 6. Methicillin-susceptible Staphylococcus aureus bacteremia likely from the feet infections. The samples from the I and D were not submitted for cultures or at least do not appear to have been submitted. DISCUSSION: The patient will be treated with IV cefazolin plus oral Flagyl since cultures from the site were not submitted; therefore, we cannot rule out anaerobic components. Discontinue Zosyn and discontinue vancomycin. PICC line placement treat for 4 weeks and after that, transition to oral cephalexin. Job ID: [id number]
[2019-08-21] MEDS: Lidocaine Patch Removal 1 EACH TOP SCH (15:20)
[2019-08-21] MEDS: metroNIDAZOLE 250 MG TAB PO SCH ×2 (15:21→21:38)
[2019-08-21] MEDS: CEFAZOLIN 2 GM in Premix Bag 1 BAG IVPB SCH ×2 (15:22→21:37)
[2019-08-22] MEDS: Lactated Ringer's 1,000 ML IV SCH ×3 (00:37→20:32)
[2019-08-22] MEDS: Lidocaine 5% Patch TD SCH (00:37)
[2019-08-22] MEDS ORDERED: Clopidogrel Bisulfate 75 MG TAB ONE (05:41)
[2019-08-22] MEDS: CEFAZOLIN 2 GM in Premix Bag 1 BAG IVPB SCH ×3 (05:46→22:40)
[2019-08-22 05:47] LABS: ALT (SGPT) 9 U/L (8-55); AST (SGOT) 20 U/L (5-34); Albumin 2.4 g/dL (3.4-4.8); Alkaline Phosphatase 62 U/L (40-110); Anion Gap 15 mmol/L (10-20); BUN (Urea Nitrogen) 45 mg/dL (8.4-25.7); Bilirubin, Total 1.4 mg/dL (0.2-1.2); Calc. Creatinine Clearance 48 mL/min (70-130); Calcium 7.8 mg/dL (7.8-10.44); Carbon Dioxide 22 mmol/L (23-31); Chloride 102 mmol/L (98-107); Estimated GFR-MDRD 49; Globulin 3.6 g/dL (2.4-3.5); Glucose 156 mg/dL (80-115); Magnesium 1.7 mg/dL (1.6-2.6); Potassium 3.9 mmol/L (3.5-5.1); Sodium 135 mmol/L (136-145)
[2019-08-22 06:11] LABS: #Eosinphils 0.2 thou/uL (0.0-0.7); #Lymphocytes 0.7 thou/uL (1.20-3.40); #Monocytes 0.5 thou/uL (0.11-0.59); #Neutrophils 3.5 thou/uL (1.40-6.50); %Basophils 0.3 % (0.0-1.0); %Eosinophils 4.1 % (0.0-10.0); %Lymphocytes 13.6 % (21.0-51.0); %Monocytes 11.1 % (0.0-10.0); %Neutrophils 70.9 % (42.0-75.0); Hemoglobin 8.8 g/dL (14.0-18.0); Mean Corpuscular HGB CONC 34.7 g/dL (32.0-36.0); Mean Corpuscular Hemoglobin 32.2 pg (27.0-31.0); Mean Corpuscular Volume 92.9 fL (78.0-98.0); Mean Platelet Volume 9.9 fL (7.4-10.4); Platelet Count 48 thou/uL (130-400); RBC Distribution Width 14.6 % (11.5-14.5); Red Blood Cell (RBC) Count 2.72 mill/uL (4.70-6.10); White Blood Cell (WBC) Count 4.9 thou/uL (4.8-10.8)
--- NOTE | 2019-08-22 06:39 | PDOC.FM ---
- Subjective Subjective: Pt is doing well today without any complaints. He states he will get PICC line today. - Objective Vital Signs & Weight: Vital Signs (12 hours) Temp Pulse Resp BP Pulse Ox 08/22/19 00:00 98.4 F 69 18 133/61 95 08/21/19 20:00 98.4 F 69 16 156/56 H 95 Weight Admit Weight 68.039 kg Weight 68.039 kg I&O: 08/20/19 08/21/19 08/22/19 06:59 06:59 06:59 Intake Total 3700 Output Total 1950 Balance 1750 Result Diagrams: 08/22/19 05:55 08/22/19 05:15 Phys Exam - Physical Examination Constitutional: NAD HEENT: PERRLA, moist MMs Respiratory: no wheezing, no rales, clear to auscultation bilateral Cardiovascular: RRR, no significant murmur Gastrointestinal: soft, non-tender Musculoskeletal: no edema, pulses present Both LE properly bandaged. L wound has vacuum placement Dx/Plan (1) Acute worsening of stage 3 chronic kidney disease Code(s): N18.3 - CHRONIC KIDNEY DISEASE, STAGE 3 (MODERATE) Status: Acute (2) Diabetic foot infection Code(s): E11.628 - TYPE 2 DIABETES MELLITUS WITH OTHER SKIN COMPLICATIONS; L08.9 - LOCAL INFECTION OF THE SKIN AND SUBCUTANEOUS TISSUE, UNSP Status: Acute (3) Thrombocytopenia Code(s): D69.6 - THROMBOCYTOPENIA, UNSPECIFIED Status: Acute (4) Amputated toe Code(s): Z89.429 - ACQUIRED ABSENCE OF OTHER TOE(S), UNSPECIFIED SIDE Status: Chronic (5) Cirrhosis Code(s): K74.60 - UNSPECIFIED CIRRHOSIS OF LIVER Status: Chronic Qualifiers: Ascites presence: without ascites (6) Hypertension associated with stage 3 chronic kidney disease due to type 2 diabetes mellitus Code(s): E11.22 - TYPE 2 DIABETES MELLITUS W DIABETIC CHRONIC KIDNEY DISEASE; I12.9 - HYPERTENSIVE CHRONIC KIDNEY DISEASE W STG 1-4/UNSP CHR KDNY; N18.3 - CHRONIC KIDNEY DISEASE, STAGE 3 (MODERATE) Status: Chronic (7) Insulin dependent diabetes mellitus Code(s): E11.9 - TYPE 2 DIABETES MELLITUS WITHOUT COMPLICATIONS; Z79.4 - IGNITER CAPPER (CURRENT) USE OF INSULIN Status: Chronic (8) Methadone dependence Code(s): F11.20 - OPIOID DEPENDENCE, UNCOMPLICATED Status: Chronic - Plan Plan: Bilateral Diabetic foot infections - D/C Zosyn and switch to cefazolin, oral flagyl. Pt will have PICC line placement today - WBC 4.9 - Dr. Duncan performed right great toe amputation, left metatarsal head resection and abscess I&D today - wound care consulting - Dr. Merritt consulted; appreciate rec's Bacteremia - Staph Aureus likely 2/2 osteomyelitis - 2 sets of cultures that were positive 2 of 2 for staph aureus - Further abx per René recs as above Anemia - Normocytic iron deficiency - Received 1 unit PRBC this admission - Trending Hgb - + FOBT - Hx of esophageal varices, does not recall when last scope was - Following transfusion hgb has further increased and remained stable - will defer GI workout to outpt MSK pain from fall - Abd ct r/o rib fractures or intra-abdominal injury - Right elbow xr revealed no osteo DM2, with hyperglycemia - January 2019 A1C 6.8%, on tuojeo and metformin at home; continued - accuchecks, ACHS Acute injury on chronic CKD 3 - Likely improved 2/2 fluid resuscitation - pre-renal azotemia present - Expect further improvement w/ continued IVF HTN - continue home meds, last dose held - continue to monitor HLD - continue home meds Cirrhosis 2/2 Hep C - continue home meds - will avoid liver toxicity medications - coags ordered, MELD 25, Child-Polanco C Thrombocytopenia - platelets 48 - stable, likely 2/2 liver cirrhosis - will continue to monitor and transfuse if known bleeding source or planned procedure Opiate dependence - continue methadone DVT ppx:scds Fluids: LR @ 100 Dispo: inpatient but will likely be discharged today or tomorrow once his outpt abx regimen is established. Code: full
[2019-08-22] MEDS: metroNIDAZOLE 250 MG TAB PO SCH ×3 (08:24→20:06)
[2019-08-22] MEDS: Propranolol 10 MG TAB PO SCH (08:24)
[2019-08-22] MEDS: metFORMIN 500 MG TAB PO SCH ×2 (08:25→15:51)
[2019-08-22] MEDS: Furosemide 80 MG TAB PO SCH ×2 (08:25→20:06)
[2019-08-22] MEDS: Rifaximin 550 MG TAB PO SCH ×2 (08:25→20:06)
[2019-08-22] MEDS: Aspirin 81 mg Enteric Coated Tablet PO SCH (08:25)
[2019-08-22] MEDS: METHadone HCl 10 MG TAB PO SCH (08:25)
[2019-08-22] MEDS: Insulin Glargine 68 UNITS in Pre-Filled Syringe 1 EACH SC SCH (08:27)
--- NOTE | 2019-08-22 11:51 | SPC ---
PROCEDURE: Peripheral insertion central catheter. INDICATION: IV antibiotic treatment. FINDINGS: A single lumen 5 Belgian PICC line was paced via the left basilic vein using fluoroscopic guidance wit h left upper extremity venogram. The tip is positioned in the SVC. PROCEDURE NOTE: Left upper extremity is prepped and draped in a sterile manner. Venogram was obtained by injected in a peripheral IV with iodinated contrast. Basilic vein in the upper humerus region was punctured und er local anesthesia with fluoroscopic guidance. The wire was advanced into the vein and the tip of t he wire was positioned in the SVC. The catheter length was then measured and cut. Sheath was placed over the wire. The catheter was advanced over the wire. The peelaway sheath was removed. The wire was removed. The catheter was flushed and secured with a sterile dressing. POS: ROSA
[2019-08-22] MEDS: Lidocaine Patch Removal 1 EACH TOP SCH (13:28)
[2019-08-23] MEDS: Lactated Ringer's 1,000 ML IV SCH ×4 (00:38→21:21)
[2019-08-23] MEDS: Lidocaine 5% Patch TD SCH ×2 (00:39→23:22)
[2019-08-23 04:42] LABS: #Eosinphils 0.1 thou/uL (0.0-0.7); #Lymphocytes 0.6 thou/uL (1.20-3.40); #Monocytes 0.4 thou/uL (0.11-0.59); #Neutrophils 2.8 thou/uL (1.40-6.50); %Basophils 0.5 % (0.0-1.0); %Eosinophils 3.3 % (0.0-10.0); %Lymphocytes 14.8 % (21.0-51.0); %Monocytes 9.5 % (0.0-10.0); %Neutrophils 71.8 % (42.0-75.0); Hemoglobin 8.1 g/dL (14.0-18.0); Mean Corpuscular HGB CONC 35.1 g/dL (32.0-36.0); Mean Corpuscular Hemoglobin 32.7 pg (27.0-31.0); Mean Corpuscular Volume 93.1 fL (78.0-98.0); Mean Platelet Volume 9.9 fL (7.4-10.4); Platelet Count 41 thou/uL (130-400); RBC Distribution Width 14.9 % (11.5-14.5); Red Blood Cell (RBC) Count 2.48 mill/uL (4.70-6.10); White Blood Cell (WBC) Count 3.9 thou/uL (4.8-10.8)
[2019-08-23 04:55] LABS: ALT (SGPT) Less than 7 U/L (8-55); AST (SGOT) 18 U/L (5-34); Albumin 2.2 g/dL (3.4-4.8); Alkaline Phosphatase 56 U/L (40-110); Anion Gap 13 mmol/L (10-20); BUN (Urea Nitrogen) 42 mg/dL (8.4-25.7); Bilirubin, Total 1.1 mg/dL (0.2-1.2); Calc. Creatinine Clearance 57 mL/min (70-130); Calcium 7.7 mg/dL (7.8-10.44); Carbon Dioxide 26 mmol/L (23-31); Chloride 100 mmol/L (98-107); Estimated GFR-MDRD 59; Globulin 3.3 g/dL (2.4-3.5); Glucose 103 mg/dL (80-115); Potassium 3.8 mmol/L (3.5-5.1); Protein, Total 5.5 g/dL (5.8-8.1); Sodium 135 mmol/L (136-145)
[2019-08-23] MEDS: CEFAZOLIN 2 GM in Premix Bag 1 BAG IVPB SCH ×3 (05:18→21:22)
--- NOTE | 2019-08-23 06:39 | PDOC.FM ---
- Subjective Subjective: Pt is doing well today. He is read for home but has concerns if he unable to care for himself at home if he would be able to be placed for a short period of time. Continues with R shoulder pain after fall, lidocaine patch alleviated pain. - Objective Vital Signs & Weight: Vital Signs (12 hours) Temp Pulse Resp BP BP Pulse Ox 08/23/19 04:56 98.6 F 74 20 127/59 L 95 08/23/19 00:00 98.6 F 75 20 132/64 97 08/22/19 20:18 98.1 F 77 16 135/63 97 Weight Admit Weight 68.039 kg Weight 68.039 kg I&O: 08/21/19 08/22/19 08/23/19 06:59 06:59 06:59 Intake Total 3700 2200 300 Output Total 1950 600 Balance 1750 1600 300 Result Diagrams: 08/23/19 04:09 08/23/19 04:09 Phys Exam - Physical Examination Constitutional: NAD Respiratory: no wheezing, no rales, clear to auscultation bilateral Cardiovascular: RRR, no significant murmur Gastrointestinal: soft, non-tender distention present Musculoskeletal: no edema, pulses present LE properly bandaged, no signs of erythema proximal; FROM shoulder Psychiatric: normal affect, A&O x 3 Dx/Plan (1) Acute worsening of stage 3 chronic kidney disease Code(s): N18.3 - CHRONIC KIDNEY DISEASE, STAGE 3 (MODERATE) Status: Acute (2) Diabetic foot infection Code(s): E11.628 - TYPE 2 DIABETES MELLITUS WITH OTHER SKIN COMPLICATIONS; L08.9 - LOCAL INFECTION OF THE SKIN AND SUBCUTANEOUS TISSUE, UNSP Status: Acute (3) Thrombocytopenia Code(s): D69.6 - THROMBOCYTOPENIA, UNSPECIFIED Status: Acute (4) Amputated toe Code(s): Z89.429 - ACQUIRED ABSENCE OF OTHER TOE(S), UNSPECIFIED SIDE Status: Chronic (5) Cirrhosis Code(s): K74.60 - UNSPECIFIED CIRRHOSIS OF LIVER Status: Chronic Qualifiers: Ascites presence: without ascites (6) Hypertension associated with stage 3 chronic kidney disease due to type 2 diabetes mellitus Code(s): E11.22 - TYPE 2 DIABETES MELLITUS W DIABETIC CHRONIC KIDNEY DISEASE; I12.9 - HYPERTENSIVE CHRONIC KIDNEY DISEASE W STG 1-4/UNSP CHR KDNY; N18.3 - CHRONIC KIDNEY DISEASE, STAGE 3 (MODERATE) Status: Chronic (7) Insulin dependent diabetes mellitus Code(s): E11.9 - TYPE 2 DIABETES MELLITUS WITHOUT COMPLICATIONS; Z79.4 - HALF-WAY (CURRENT) USE OF INSULIN Status: Chronic (8) Methadone dependence Code(s): F11.20 - OPIOID DEPENDENCE, UNCOMPLICATED Status: Chronic - Plan Plan: Bilateral Diabetic foot infections - D/C Zosyn and switch to cefazolin, oral flagyl. Pt had PICC line placed . Pending discharge for abx therapy, wound care in the outpt setting; appreciate CM rec's. Pt would like to know if he is unable to care for himself appropriately at home if he placement is possible after home discharge. - WBC WNL - Dr. Duncan performed right great toe amputation, left metatarsal head resection and abscess I&D - wound care consulting - Dr. Merritt consulted; appreciate rec's Bacteremia - Staph Aureus likely 2/2 osteomyelitis - 2 sets of cultures that were positive 2 of 2 for staph aureus - Further abx per René luos as above Anemia - Normocytic iron deficiency - Received 1 unit PRBC this admission - Trending Hgb - + FOBT - Hx of esophageal varices, does not recall when last scope was - Following transfusion hgb has further increased and remained stable - will defer GI workout to outpt [facility]K pain from fall - Abd ct r/o rib fractures or intra-abdominal injury - Right elbow xr revealed no osteo DM2, with hyperglycemia - January 2019 A1C 6.8%, on tuojeo and metformin at home; continued - accuchecks, ACHS Acute injury on chronic CKD 3 - Likely improved 2/2 fluid resuscitation - pre-renal azotemia present - Expect further improvement w/ continued IVF HTN - continue home meds, last dose held - continue to monitor HLD - continue home meds Cirrhosis 2/2 Hep C - continue home meds - will avoid liver toxicity medications - coags ordered, MELD 25, Child-Polanco C Thrombocytopenia - platelets 48 - stable, likely 2/2 liver cirrhosis - will continue to monitor and transfuse if known bleeding source or planned procedure Opiate dependence - continue methadone DVT ppx:scds Fluids: LR @ 100 Dispo: inpatient but will likely be discharged today once his outpt abx regimen is established. Code: full
[2019-08-23] MEDS: Aspirin 81 mg Enteric Coated Tablet PO SCH (08:08)
[2019-08-23] MEDS: METHadone HCl 10 MG TAB PO SCH (08:08)
[2019-08-23] MEDS: Furosemide 80 MG TAB PO SCH ×2 (08:09→20:00)
[2019-08-23] MEDS: Rifaximin 550 MG TAB PO SCH ×2 (08:09→19:59)
[2019-08-23] MEDS: metFORMIN 500 MG TAB PO SCH ×2 (08:09→17:35)
[2019-08-23] MEDS: metroNIDAZOLE 250 MG TAB PO SCH ×3 (08:10→19:59)
[2019-08-23] MEDS: Insulin Glargine 68 UNITS in Pre-Filled Syringe 1 EACH SC SCH (08:10)
[2019-08-23] MEDS: Propranolol 10 MG TAB PO SCH (08:10)
[2019-08-23] MEDS ORDERED: Ibuprofen 600 MG TAB PO SCH (11:45)
[2019-08-23] MEDS: Lidocaine Patch Removal 1 EACH TOP SCH (12:03)
--- NOTE | 2019-08-23 17:04 | PRG ---
DATE OF SERVICE: 08/23/2019 SUBJECTIVE: No respiratory symptoms or abdominal pain. No diarrhea. Voiding without difficulty in the urinal. Had some bleeding at the wound site in left foot that was fixed after exchange of the negative pressure foam and dressing. OBJECTIVE: VITAL SIGNS: Normal. GENERAL: Awake, alert, and oriented. LUNGS: Clear. HEART: S1 and S2, regular rate. ABDOMEN: Soft and not distended. : No bladder distention. EXTREMITIES: PICC line in left upper extremity. Feet with dressing in place. LABORATORY DATA: White cell count 3.9, hemoglobin 8.1, platelets 41,000. Creatinine 1.22, which is better than previous. Microbiology with Staph aureus, and he is currently on cefazolin and Flagyl. ASSESSMENT AND DISCUSSION: IV drug use, in remission; chronic hepatitis C, cured after recent treatment; liver cirrhosis, left as the aftermath of the chronic hepatitis C and alcohol use; hypertension; esophageal varices in the portal area; ascites; type 2 diabetes; and foot complications associated with neuropathy, status post amputation of the metatarsal remnant in left foot, I and D of the right; and methicillin-susceptible Staph aureus bacteremia. The patient will continue on cefazolin, dose is 2 g q.8, and the orders have been placed for the case management with Rocephin 2 g daily until September 23, 2019, and p.o. Flagyl, with weekly labs. Job ID: [id number]
[2019-08-23] MEDS ORDERED: Heparin 1,000 UNITS/ML VIAL ONE (18:00)
[2019-08-24] MEDS: CEFAZOLIN 2 GM in Premix Bag 1 BAG IVPB SCH ×2 (05:18→13:39)
[2019-08-24 06:14] LABS: #Eosinphils 0.1 thou/uL (0.0-0.7); #Lymphocytes 0.5 thou/uL (1.20-3.40); #Monocytes 0.4 thou/uL (0.11-0.59); %Eosinophils 3.4 % (0.0-10.0); %Lymphocytes 12.3 % (21.0-51.0); %Monocytes 9.5 % (0.0-10.0); %Neutrophils 74.8 % (42.0-75.0); Hemoglobin 8.4 g/dL (14.0-18.0); Mean Corpuscular HGB CONC 34.8 g/dL (32.0-36.0); Mean Corpuscular Hemoglobin 32.5 pg (27.0-31.0); Mean Corpuscular Volume 93.3 fL (78.0-98.0); Mean Platelet Volume 10.6 fL (7.4-10.4); Platelet Count 39 thou/uL (130-400); RBC Distribution Width 14.9 % (11.5-14.5); Red Blood Cell (RBC) Count 2.59 mill/uL (4.70-6.10)
--- NOTE | 2019-08-24 06:30 | PDOC.FM ---
- Subjective Subjective: Pt remains with some shoulder pain subsequent to fall. He states he has full ROM. Pain worse 10 hours after pain medication administration. He repositions to help with pain. No other complaints. He looks forward to placement. - Objective Vital Signs & Weight: Vital Signs (12 hours) Temp Pulse Resp BP Pulse Ox 08/23/19 21:38 98 08/23/19 19:34 97.7 F 72 18 111/53 L 98 Weight Admit Weight 68.039 kg Weight 68.039 kg I&O: 08/22/19 08/23/19 08/24/19 06:59 06:59 06:59 Intake Total 2200 300 2150 Output Total 600 750 Balance 2271 905 9960 Result Diagrams: 08/24/19 05:38 08/24/19 05:38 Phys Exam - Physical Examination Constitutional: NAD HEENT: PERRLA, moist MMs Respiratory: no wheezing, no rales, clear to auscultation bilateral Cardiovascular: RRR, no significant murmur Gastrointestinal: soft, non-tender Musculoskeletal: no edema, pulses present LE properly bandaged, no erythema proximal to bandages Neurological: non-focal, moves all 4 limbs Skin: no rash, normal turgor Dx/Plan (1) Acute worsening of stage 3 chronic kidney disease Code(s): N18.3 - CHRONIC KIDNEY DISEASE, STAGE 3 (MODERATE) Status: Acute (2) Diabetic foot infection Code(s): E11.628 - TYPE 2 DIABETES MELLITUS WITH OTHER SKIN COMPLICATIONS; L08.9 - LOCAL INFECTION OF THE SKIN AND SUBCUTANEOUS TISSUE, UNSP Status: Acute (3) Thrombocytopenia Code(s): D69.6 - THROMBOCYTOPENIA, UNSPECIFIED Status: Acute (4) Amputated toe Code(s): Z89.429 - ACQUIRED ABSENCE OF OTHER TOE(S), UNSPECIFIED SIDE Status: Chronic (5) Cirrhosis Code(s): K74.60 - UNSPECIFIED CIRRHOSIS OF LIVER Status: Chronic Qualifiers: Ascites presence: without ascites (6) Hypertension associated with stage 3 chronic kidney disease due to type 2 diabetes mellitus Code(s): E11.22 - TYPE 2 DIABETES MELLITUS W DIABETIC CHRONIC KIDNEY DISEASE; I12.9 - HYPERTENSIVE CHRONIC KIDNEY DISEASE W STG 1-4/UNSP CHR KDNY; N18.3 - CHRONIC KIDNEY DISEASE, STAGE 3 (MODERATE) Status: Chronic (7) Insulin dependent diabetes mellitus Code(s): E11.9 - TYPE 2 DIABETES MELLITUS WITHOUT COMPLICATIONS; Z79.4 - HALFWAY (CURRENT) USE OF INSULIN Status: Chronic (8) Methadone dependence Code(s): F11.20 - OPIOID DEPENDENCE, UNCOMPLICATED Status: Chronic - Plan Plan: Bilateral Diabetic foot infections - D/C Zosyn and switch to cefazolin, oral flagyl. Pt had PICC line placed . Pending placement, pt would benefit from rehab/skilled due to weakness, amputations, IV abx, and lack of physical support at home to assist; appreciate CM rec's. - WBC WNL - Dr. Duncan performed right great toe amputation, left metatarsal head resection and abscess I&D - wound care consulting - Dr. Merritt consulted; appreciate rec's Bacteremia - Staph Aureus likely 2/2 osteomyelitis - 2 sets of cultures that were positive 2 of 2 for staph aureus - Further abx per René recs as above Anemia - Normocytic iron deficiency - Received 1 unit PRBC this admission - Trending Hgb, stable - + FOBT - Hx of esophageal varices, does not recall when last scope was - Following transfusion hgb has further increased and remained stable - will defer GI workout to outpt [facility] pain from fall - Abd ct r/o rib fractures or intra-abdominal injury - Right elbow xr revealed no osteo - FROM - continue home medications, ibuprofen prn DM2, with hyperglycemia - January 2019 A1C 6.8%, on tuojeo and metformin at home; continued - accuchecks, ACHS Acute injury on chronic CKD 3 - Likely improved 2/2 fluid resuscitation - resolved HTN - continue home meds, last dose held - continue to monitor HLD - continue home meds Cirrhosis 2/2 Hep C - continue home meds - will avoid liver toxicity medications - coags ordered, MELD 25, Child-Polanco C Thrombocytopenia - platelets stable, likely 2/2 liver cirrhosis - will continue to monitor and transfuse if known bleeding source or planned procedure Opiate dependence - continue methadone DVT ppx:scds Fluids: LR @ 100 Dispo: inpatient pending placement Code: full
[2019-08-24 06:31] LABS: ALT (SGPT) Less than 7 U/L (8-55); AST (SGOT) 18 U/L (5-34); Albumin 2.4 g/dL (3.4-4.8); Alkaline Phosphatase 59 U/L (40-110); Anion Gap 12 mmol/L (10-20); BUN (Urea Nitrogen) 41 mg/dL (8.4-25.7); Bilirubin, Total 1.2 mg/dL (0.2-1.2); Calc. Creatinine Clearance 55 mL/min (70-130); Calcium 7.7 mg/dL (7.8-10.44); Carbon Dioxide 27 mmol/L (23-31); Chloride 99 mmol/L (98-107); Estimated GFR-MDRD 57; Globulin 3.3 g/dL (2.4-3.5); Glucose 116 mg/dL (80-115); Potassium 3.3 mmol/L (3.5-5.1); Protein, Total 5.7 g/dL (5.8-8.1); Sodium 135 mmol/L (136-145)
[2019-08-24] MEDS ORDERED: Ibuprofen 200 MG TAB PO PRN (07:32)
[2019-08-24] MEDS ORDERED: Potassium Chloride 20 MEQ TAB PO SCH (09:00)
[2019-08-24] MEDS: METHadone HCl 10 MG TAB PO SCH (09:16)
[2019-08-24] MEDS: Rifaximin 550 MG TAB PO SCH (09:16)
[2019-08-24] MEDS: Furosemide 80 MG TAB PO SCH (09:17)
[2019-08-24] MEDS: Aspirin 81 mg Enteric Coated Tablet PO SCH (09:17)
[2019-08-24] MEDS: Propranolol 10 MG TAB PO SCH (09:18)
[2019-08-24] MEDS: metroNIDAZOLE 250 MG TAB PO SCH ×2 (09:18→16:35)
[2019-08-24] MEDS ORDERED: PARoxetine 20 MG TAB ONE (09:52)
[2019-08-24] MEDS: Lactated Ringer's 1,000 ML IV SCH (10:10)
[2019-08-24] MEDS: metFORMIN 500 MG TAB PO SCH ×2 (10:14→16:37)
[2019-08-24] MEDS: Insulin Glargine 68 UNITS in Pre-Filled Syringe 1 EACH SC SCH (10:15)
[2019-08-24] MEDS: Lidocaine Patch Removal 1 EACH TOP SCH (13:40)
--- NOTE | 2019-08-24 15:24 | PRG ---
DATE OF SERVICE: 08/24/2019 SUBJECTIVE: No major complaints. Still having problems with the negative-pressure pump. No respiratory symptoms or abdominal pain. No diarrhea. OBJECTIVE: VITAL SIGNS: Within normal limits. LUNGS: Clear. HEART: S1, S2 regular rate. ABDOMEN: Soft. Not distended. EXTREMITIES: Feet with the dressing, which was not removed. LABORATORY DATA: White cell count 4.0, hemoglobin 8.4, platelets 39. Creatinine 1.27, which is improved from admission. Cultures with Staphylococcus aureus, methicillin-sensitive. ASSESSMENT AND DISCUSSION: History of IV drug use, in remission; chronic hep C, cured; liver cirrhosis, esophageal varices; type 2 diabetes; foot infections, which led to metatarsal amputation of the left foot. An I and D of the right. He also has MSSA bacteremia. To be continued on Rocephin 2 g daily until September 23, 2019, plus p.o. Flagyl. Job ID: [id number]
[2019-08-24 15:56] VITALS: BP 121/54; TEMP 98.6
[2019-08-24] MEDS: HumaLOG 300 UNITS/3 ML VIAL SC PRN (17:22)
--- NOTE | 2019-08-26 00:06 | PQF ---
DENZEL SHAIKH KATHERINE MD [id number] CLINICAL DOCUMENTATION CLARIFICATION FORM: POST DISCHARGE Addendum to original discharge summary date: ____ Late entry note date: __ DATE: 08-26-2019 ATTN:Bridgette Mendez Please exercise your independent, professional judgment in responding to the clarification form. Clinical indicators are provided on the bottom of this form for your review Based on your clinical judgment, can you please clarify the clinical significance based on the below indicators. Please check appropriate box(s): [ ] portal vein thrombosis [ ] insignificant findings [ ] Other diagnosis please specify [x ] Unable to determine For continuity of documentation, please document condition throughout progress notes and discharge summary. Thank You. CLINICAL INDICATORS: HP 08/[address] Otoole Chief compliant: bilateral foot drainage HP 08/[address] Otoole drainage from both of his feet PN 08/[address] Uribe Diabetic foot infection PN 08/[address] Uribe Diabetic foot ulcer Imaging CT abdomen 08/18- documented only in CT abdomen/pelvis 08/18, There is enlargement of the splenic and portal veins with calcifications in the portal and splenic veins which may be related to calcified chronic thrombus in these veins. Partial thrombus was seen in the portal vein on prior exam in 2018. Consult pg3 08/21-Cirrhosis as the aftermath of his chronic hep C plus alcohol use RISK FACTORS: HP- History of amputation of his first toe on his left foot and partial amputation of the second toe on his left foot. HP-PMH: DM2 HP- CKD PN- DM with hyperglycemia HP- Hx. Of cirrhosis from hep c HP- 64 years old male TREATMENTS: Imaging 08/18 CT Abdomen 08/19 Op note- Amputation of right great toe, resection of metatarsal foot JAN 23 Vancomycin 1 gm IV MAR 08/17 Zosyn IV HP- IVF (This form is maintained as a part of the permanent medical record) 2014 [email or web address], [employer]. All Rights Reserved [email or web address] [not provided] MTDD
--- NOTE | 2019-08-26 00:15 | PQF ---
DENZEL SHAIKH KATHERINE MD [id number] CLINICAL DOCUMENTATION CLARIFICATION FORM: POST DISCHARGE Addendum to original discharge summary date: ____ Late entry note date: __ DATE: 08-26-2019 ATTN:Bridgette Mendez Please exercise your independent, professional judgment in responding to the clarification form. Clinical indicators are provided on the bottom of this form for your review Can you please specify if the patient diabetic foot infection is a complication from previous amputation? Please check appropriate box(s): [ ] diabetic foot infection is a complication from previous amputation [ ] diabetic foot infection is not a complication from previous amputation [ ] Other diagnosis please specify: [ x] Unable to determine CLINICAL INDICATORS: HP 08/[address] Otoole Chief compliant: bilateral foot drainage HP 08/[address] Otoole drainage from both of his feet PN 08/[address] Uribe Diabetic foot infection ED Notes 08/16 reports fever as high as 103.1 ED Notes 08/16 sepsis 2/2 diabetic foot infection HP 08/16 complaint of bilateral foot wound redness RISK FACTORS: HP- History of amputation of his first toe on his left foot and partial amputation of the second toe on his left foot. HP-PMH: DM2 HP- CKD PN- DM with hyperglycemia HP- 64 years old male HP-Bilateral foot cellulitis TREATMENT: 08/19 Op note- Amputation of right great toe, resection of metatarsal foot MAR 08/17 Vancomycin 1 gm IV MAR 08/17 Zosyn 3.375gm IV MAR 08/17 Insulin 68 units subcu Imaging 08/16- Foot Xray HP- IVF HP- Blood culture PN 08/17 Wound care consult (This form is maintained as a part of the permanent medical record) 2014 [employer]. All Rights Reserved Taryn [email or web address] [not provided] MTDD
== END 2019-08-24 17:35 | DRG 854 ==
LOC: ERS 20:04 → T4-B 21:20
PROVIDERS: ADMIT Family Medicine; ATTEND Family Medicine
PROC: 30233N1 Transfusion of Nonautologous Red Blood Cells into Peripheral Vein, Percutaneous Approach (ICD-10-PCS; 2019-08-18)
PROC: 0Y6P0Z3 Detachment at Right 1st Toe, Low, Open Approach (ICD-10-PCS; principal; 2019-08-19)
PROC: 0Y6N0ZB Detachment at Left Foot, Partial 2nd Ray, Open Approach (ICD-10-PCS; 2019-08-19)
PROC: 02HV33Z Insertion of Infusion Device into Superior Vena Cava, Percutaneous Approach (ICD-10-PCS; 2019-08-22)
PROC: B518YZA Fluoroscopy of Superior Vena Cava using Other Contrast, Guidance (ICD-10-PCS; 2019-08-22)
DX: A41.01 Sepsis due to Methicillin susceptible Staphylococcus aureus (principal); F11.20 Opioid dependence, uncomplicated; L03.116 Cellulitis of left lower limb; L03.115 Cellulitis of right lower limb; N17.9 Acute kidney failure, unspecified; M86.171 Other acute osteomyelitis, right ankle and foot; M86.172 Other acute osteomyelitis, left ankle and foot; L02.612 Cutaneous abscess of left foot; K76.6 Portal hypertension; R18.8 Other ascites; I85.10 Secondary esophageal varices without bleeding; E11.628 Type 2 diabetes mellitus with other skin complications; E11.621 Type 2 diabetes mellitus with foot ulcer; E11.40 Type 2 diabetes mellitus with diabetic neuropathy, unspecified; G89.29 Other chronic pain; K74.60 Unspecified cirrhosis of liver; L08.89 Other specified local infections of the skin and subcutaneous tissue; E11.65 Type 2 diabetes mellitus with hyperglycemia; E78.5 Hyperlipidemia, unspecified; E11.22 Type 2 diabetes mellitus with diabetic chronic kidney disease; N18.3 Chronic kidney disease, stage 3 (moderate); I12.9 Hypertensive chronic kidney disease with stage 1 through stage 4 chronic kidney disease, or unspecified chronic kidney disease; E11.69 Type 2 diabetes mellitus with other specified complication; D63.1 Anemia in chronic kidney disease; E11.43 Type 2 diabetes mellitus with diabetic autonomic (poly)neuropathy; K31.84 Gastroparesis; M25.511 Pain in right shoulder; Z89.432 Acquired absence of left foot; Z79.899 Other long term (current) drug therapy; Z79.4 Long term (current) use of insulin; M54.5 Low back pain; D69.59 Other secondary thrombocytopenia; L97.524 Non-pressure chronic ulcer of other part of left foot with necrosis of bone; L97.514 Non-pressure chronic ulcer of other part of right foot with necrosis of bone; D50.9 Iron deficiency anemia, unspecified
CPT/HCPCS: 36415; 36416; 36430; 36569; 71045; 74176; 80048; 80053; 80202; 81003; 81015; 82010; 82140; 82274; 82550; 82607; 82728; 82746; 83540; 83550; 83605; 83690; 83735; 83880; 84484; 85025; 85610; 85652; 85730; 86140; 86850; 86900; 86901; 87040; 87077; 87186; 90714; 93005; 96361; 96365; 96375; A9577; C1751; J0690; J1644; J1815; J2060; J2543; J3010; J3370; J3475; J3490; J7050; P9016; S0020

== ENCOUNTER 2019-10-11 09:33 | Inpatient (IN) | payer MEDICARE, MEDICAID ==
[2019-10-11] MEDS ORDERED: Adenosine 6 MG/2 ML VIAL ONE (09:41)
[2019-10-11] MEDS ORDERED: Metoprolol Tartrate 5 MG/5 ML VIAL ONE (09:55)
--- NOTE | 2019-10-11 10:20 | RAD ---
Chest one view HISTORY: Dyspnea. Chest pain. COMPARISON: 08/16/2019. FINDINGS: Cardiac silhouette is magnified by projection. Pulmonary vasculature upper limits of normal . Mediastinum is midline with calcified mediastinal lymph nodes. Tip of a left upper extremity PICC projects over the superior vena cava. Defibrillator patch overlies the right side of the chest, partially obscuring detail. No lobar consol idation or evidence of pneumothorax. IMPRESSION: No active cardiopulmonary abnormalities are demonstrated.
[2019-10-11 10:29] LABS: Hemoglobin 9.3 g/dL (14.0-18.0); Mean Corpuscular Volume 94.2 fL (78.0-98.0); Mean Platelet Volume 11.5 fL (7.4-10.4); Platelet Count 26 thou/uL (130-400); RBC Distribution Width 15.7 % (11.5-14.5); Red Blood Cell (RBC) Count 2.82 mill/uL (4.70-6.10); White Blood Cell (WBC) Count 2.4 thou/uL (4.8-10.8)
[2019-10-11 10:43] LABS: ALT (SGPT) 22 U/L (8-55); AST (SGOT) 27 U/L (5-34); Albumin 3.8 g/dL (3.4-4.8); Alkaline Phosphatase 78 U/L (40-110); Anion Gap 15 mmol/L (10-20); BUN (Urea Nitrogen) 84 mg/dL (8.4-25.7); CK (CPK) 21 U/L (30-200); Calc. Creatinine Clearance 0 mL/min (70-130); Calcium 9.1 mg/dL (7.8-10.44); Carbon Dioxide 26 mmol/L (23-31); Chloride 101 mmol/L (98-107); Estimated GFR-MDRD 52; Globulin 3.7 g/dL (2.4-3.5); Glucose 299 mg/dL (80-115); Lipase 12 U/L (8-78); Potassium 4.5 mmol/L (3.5-5.1); Protein, Total 7.5 g/dL (5.8-8.1); Sodium 137 mmol/L (136-145)
[2019-10-11 10:45] LABS: Anisocytosis SLIGHT = 6-15 cells (100X) (0-5/hpf); Band 9 % (5-11); Eosinophils 3 % (0-10); Lymphocytes 21 % (21-51); MDiff Complete? YES; Monocytes 13 % (0-10); Neutrophil 53 % (42-75); Ovalocytes SLIGHT = 2-5 cells (100X) (0-1/hpf); Platelet Morphology Comment Appears Decreased; Polychromasia SLIGHT = 2-3 cells (100X) (0-2/hpf); Schistocytes SLIGHT = 2-5 cells (100X) (0-1/hpf)
[2019-10-11 11:23] LABS: Bacteria/HPF None Seen HPF (None Seen); Bilirubin Negative (Negative); Blood, Urine 1+ (Negative); Clarity Clear (Clear); Glucose, Urine (Dipstick) 70 mg/dL (Negative); Leukocyte Negative Leu/uL (Negative); Nitrite Negative (Negative); Protein, Urine (Dipstick) 20 mg/dL (Neg-Trace); Squamous Epithelial None Seen HPF (0-3); Urobilinogen Normal mg/dL (Less than 2); WBC/HPF 0-3 HPF (0-3)
--- NOTE | 2019-10-11 12:30 | CT ---
CTA CHEST WITH CONTRAST, AND 3-D VOLUME RENDERING CLINICAL INDICATION: Short of breath; Elevated D-dimer Comparison exam: None FINDINGS: Pulmonary embolus:No significant filling defect is identified within the pulmonary arteries. Thoracic aorta is non-aneurysmal. Pulmonary parenchymal consolidation:No lobar consolidation. Mild subpleural interstitial opacities ar e present bilaterally. Pleural effusion: None Pneumothorax: None Osseous structures: No acute process. Please reference recent CT abdomen pelvis exam 08/18/2019 for details regarding intra-abdominal abnorm alities, incompletely assessed on the basis of this exam. IMPRESSION: No acute pulmonary embolus.
[2019-10-11] MEDS ORDERED: Iopamidol 370 76% 100 ML VIAL ONE (12:55)
--- NOTE | 2019-10-11 13:32 | PDOC.FPRHP ---
- History of Present Illness Chief Complaint: AMS History of Present Illness: ER report very limited. No HPI documentation except that pt arrived via EMS after family had called saying pt had been altered for 3 days with generalized weakness. When asked pt why he was here or what was wrong, he says "nothing." Denies past medical history. Able to tell me Dr. Lobo is his PCP. Denies pain. Says nothing is wrong. Does not know why he is here. Says he did not take his morning meds today because he did not "feel good." No family in the room able to assist w/ HPI. Information obtained through records of prior hospitalization for amputation from diabetic toe wounds and from [facility] clinic records. ED Course: given lactulose, lopressor, adenosine, and 1L NS. Adenosine converted him to NSR. - Allergies/Adverse Reactions Allergies Allergy/AdvReac Type Severity Reaction Status Date / Time No Known Allergies Allergy Verified 02/24/19 11:46 - Home Medications Medication Instructions Recorded Confirmed Type Rifaximin [Xifaxan] 550 mg PO BID 08/29/13 10/11/19 History Spironolactone 100 mg PO QAM 08/29/13 10/11/19 History Pantoprazole [Protonix] 40 mg PO DAILY 09/16/14 10/11/19 History Promethazine HCl 25 mg PO TID PRN 09/18/15 10/11/19 History metFORMIN HCl [Glucophage] 1,000 mg PO BID-WM 09/18/15 10/11/19 History Furosemide [Lasix] 80 mg PO BID #0 tab 06/30/16 10/11/19 Rx METHadone HCl [Methadose] 40 mg PO QAM 02/14/19 10/11/19 History Insulin Glargine,Hum.Rec.Anlog 70 unit SQ QAM 02/24/19 10/11/19 History [Toujeo Solostar] Propranolol [Inderal] 2 tab PO HS 08/17/19 10/11/19 History Lidocaine 5% Patch [Lidoderm 5% 1 patch TD 0000 patch 08/24/19 10/11/19 Rx Patch] Lactulose 10 GM/15ML Oral Magda 30 ml PO BID 10/11/19 10/11/19 History [Lactulose] Spironolactone 50 mg PO QPM 10/11/19 10/11/19 History - History Per previous admission: PMHx: DM2, HTN, Cirrhosis from Hep C, chronic back pain, thrombocytopenia, lower extremity cellulitis PSHx: esophageal variceal banding x3, toe amputation x2 FHx: non-contributory Social: former marijuana user, sober 15yrs from etoh use, nonsmoker Pt is on chronic methadone therapy. - Review of Systems ROS unobtainable: due to mental status - Vital signs BP: 135/68, MAP: 90, Pulse: 81, Resp: 18, Temp: 98.7 (Oral), Pain: 0, O2 sat: 100 on (Room Air), Time: 10/11/2019 12:25. - Physical Exam Constitutional: other (pt is confused and disoriented.) HEENT: normocephalic and atraumatic, PERRLA, EOMI, conjunctiva clear, no scleral icterus, grossly normal hearing (MM dry) Heart: RRR, normal S1/S2 Lungs: CTAB, no respiratory distress Abdomen: soft, non-tender, bowel sounds present, no masses/distention (no drainable ascites.) Musculoskeletal: normal tone, other (amputated toes. Bandaged.) -Neurological: AxO x1. Pt cannot tell me where he is or what year it is. Remote memory intact. Recent memory impaired. No aphasia. Strength 5/5 bilaterally in Upper and lower extremities Asterixis + No pronator drift. CN intact, except pt cannot follow commands by following fingers w/ his eyes. Unable to test visual singh as pt could not follow these commands. + dysdiadichokinesia, could not complete cerebellar function exam tests Overall, fine motor movements diminished. Gross motor movements intact. Skin: no rash/lesions Heme/Lymphatic: no unusual bruising or bleeding, no purpura -Heme/Lymphatic: stasis dermatitis changes to distal lower extremities. FMR H&P: Results - Labs Result Diagrams: 10/11/19 10:09 10/11/19 10:10 Lab results: WBC 2.4 thou/uL (4.8-10.8) L 10/11/19 10:09 Hgb 9.3 g/dL (14.0-18.0) L 10/11/19 10:09 Hct 26.5 % (42.0-52.0) L 10/11/19 10:09 MCV 94.2 fL (78.0-98.0) 10/11/19 10:09 Plt Count 26 thou/uL (130-400) L* 10/11/19 10:09 Band Neuts % (Manual) 9 % (5-11) 10/11/19 10:09 Sodium 137 mmol/L (136-145) 10/11/19 10:10 Potassium 4.5 mmol/L (3.5-5.1) 10/11/19 10:10 Chloride 101 mmol/L (98-107) 10/11/19 10:10 Carbon Dioxide 26 mmol/L (23-31) 10/11/19 10:10 BUN 84 mg/dL (8.4-25.7) H 10/11/19 10:10 Creatinine 1.37 mg/dL (0.7-1.3) H 10/11/19 10:10 Glucose 299 mg/dL (80-115) H 10/11/19 10:10 Lactic Acid 2.0 mmol/L (0.5-2.2) 10/11/19 10:10 Calcium 9.1 mg/dL (7.8-10.44) 10/11/19 10:10 Total Bilirubin 3.0 mg/dL (0.2-1.2) H 10/11/19 10:10 AST 27 U/L (5-34) 10/11/19 10:10 ALT 22 U/L (8-55) 10/11/19 10:10 Alkaline Phosphatase 78 U/L (40-110) 10/11/19 10:10 Creatine Kinase 21 U/L (30-200) L 10/11/19 10:10 B-Natriuretic Peptide 57.9 pg/mL (0-100) 10/11/19 10:10 Serum Total Protein 7.5 g/dL (5.8-8.1) 10/11/19 10:10 Albumin 3.8 g/dL (3.4-4.8) 10/11/19 10:10 Lipase 12 U/L (8-78) 10/11/19 10:10 Urine Ketones Negative mg/dL (Negative) 10/11/19 10:57 Urine Blood 1+ (Negative) A 10/11/19 10:57 Urine Nitrite Negative (Negative) 10/11/19 10:57 Ur Leukocyte Esterase Negative Trace/uL (Negative) 10/11/19 10:57 Urine RBC 4-6 HPF (0-3) A 10/11/19 10:57 Urine WBC 0-3 HPF (0-3) 10/11/19 10:57 Ur Squamous Epith Cells None Seen HPF (0-3) 10/11/19 10:57 Urine Bacteria None Seen HPF (None Seen) 10/11/19 10:57 - Radiology Interpretation Chest x-ray Status: image reviewed by me Additional comment: IMPRESSION: No active cardiopulmonary abnormalities are demonstrated. CT scan - chest Additional comment: No PE FMR H&P: A/P - Problem List (1) Acute encephalopathy Current Visit: Yes Status: Acute Code(s): G93.40 - ENCEPHALOPATHY, UNSPECIFIED (2) SVT (supraventricular tachycardia) Current Visit: Yes Status: Acute Code(s): I47.1 - SUPRAVENTRICULAR TACHYCARDIA (3) Thrombocytopenia Current Visit: No Status: Acute Code(s): D69.6 - THROMBOCYTOPENIA, UNSPECIFIED (4) Chronic back pain Current Visit: No Status: Chronic Code(s): M54.9 - DORSALGIA, UNSPECIFIED; G89.29 - OTHER CHRONIC PAIN (5) Chronic kidney disease, stage 3 Current Visit: No Status: Chronic (6) Hepatic cirrhosis due to chronic hepatitis C infection Current Visit: No Status: Chronic Code(s): B18.2 - CHRONIC VIRAL HEPATITIS C ; K74.60 - UNSPECIFIED CIRRHOSIS OF LIVER (7) Insulin dependent diabetes mellitus Current Visit: No Status: Chronic Code(s): E11.9 - TYPE 2 DIABETES MELLITUS WITHOUT COMPLICATIONS; Z79.4 - GROUP HOME (CURRENT) USE OF INSULIN (8) Methadone dependence Current Visit: No Status: Chronic Code(s): F11.20 - OPIOID DEPENDENCE, UNCOMPLICATED - Plan 64-year old male admitted for: Acute encephalopathy - UDS + for methadone - Head CT ordered, pending. - Ammonia level elevated. Will repeat in AM. - started lactulose - unclear of cause at this point: may be worsening cirrhosis and lack of taking medicines today (or for past 3 days possibly) New onset SVT, in NSR now. - converted w/ adenosine - Cardio, Shree consulted, appreciate recs. - telemetry monitoring Severe thrombocytopenia Pancytopenia - pt has chronic thrombocytopenia - may be secondary to cirrhotic disease of liver - repeat CBC in AM, replace if needed - INR and PT ordered. ANJEL on CKD - pt's baseline appears to be Cr of 1.2. - fluid resuscitate Chronic conditions: Methadone dependence - given 20mg tonight - usual dose of 40mg tomorrow morning. Cirrhosis 2/2 to Hep C - sees Dr. Merritt - ceftriaxone 1g daily for SBP prophylaxis during hospitalization IDDM type 2 - continue metformin and home 70/30 dose in AM if eating - sliding scale and hypoglycemia protocol - no gap, no ketones in urine, no hypoglycemia Code: FULL. Pt unable to tell us his code status. Attempted to call family with no response. Diet: bedside swallow. Heart healthy, consistent carb if cleared to swallow Fluids: 125 NS VTE PPx: contraindicated GI PPx: none Disposition/LOS: #. FMR H&P: Upper Level - Plan 64 yo M with hx of cirrhosis brought in by EMS for AMS, was found to be in SVT, given adenosine & metoprolol & converted back to NSR. No prior cardiac hx per patient. Patient is A&O x1 so history is limited and unable to get ahold of family. Pt denies chest pain, or really anything at time of exam. ER: 6mg adnosine, 5mg Lopressor PE: A&O x1, asterixis, no FND, abd soft, non tender, ascites, feet with wrapping from amputation, stasis dermatitis Labs: see above Imaging: CTA for elevated Ddimer, negative for PE A/P: #. New onset SVT -NSR after adenosine & lopressor -New onset as far as record review goes-consult cards, recs appreciated -Trops neg x3 -Obtain echo -Check Mg -Could be due to methadone -Admit to tele #. Acute encephalopathy -No FND suggesting stroke -Ammonia elevate 87, give lactulose, titrate -No trauma per report, but confirm better hx with family. Stat CT head -Hyperglycemic, not in DKA -UDS -Blood cx #. Cirrhosis 2/2 Hepatitis C -Has been seen by Dr. Merritt -Need to do record review/touch base to see what tx patient has had -Not likely SBP but will give rocephin -MELD 18 (3-4% 90 day mortality)-need to see if followed by GI #. Pancytopenic -Likely 2/2 to cirrhosis -PBS, iron studies #. Hyperglycemia in IDDM2 -Aggressive sliding scale -Accuchecks -Home meds #. Opioid dependence -Restart home methadone to avoid withdrawal -Consider cutting down dose to see if attributing to AMS admit tele/inpatient dvt ppx: hold due to thrombocytopenia/SCDs dispo: >3 midnights code: full (recall family again tmrw) Addendum - Attending - Attending Attestation Date/Time: 10/11/19 1610 I personally evaluated the patient and discussed the management with /Hao I agree with the History, Examination, Assessment and Plan documented above with any addition or exceptions noted below. 64 yo WM known cirrhosis with noncompliance with medication. present to ER with AMS. Bother stated he was more somnolent per ER report. Brother not present at time of exam. In er found to be in SVT. responded to adenosine and lopressor IV. NSR at time of my exam. patient A&O to person and place. Stated he wanted to leave hospital and "would come back if I need to." Told patient i did not feel like he was safe to go home. Ammonia elevated at 87. Otherwise labs at baseline. Exam remarkable for asterixis but otherwise unremarkable. Admit for hepatic encephalopthay 2/2 noncompliance and new onset SVT. Cards consult tomorrow, TTE, Mg, TSH. Resume lactulose and will give dose of rocephin for SBP PPx incase this is an occult bleed. If patient continues to insist on leaving AMA will contact housekeeper nanny as I do not feel he is decisional at this time. Inpatient, tele, >2 midnights.
[2019-10-11 14:04] LABS: Acetaminophen Less than 6.0 mcg/mL (10.0-30.0); Alcohol Less than 10 mg/dL (Less than 10); Salicylate Less than 8.0 mg/dL (15.0-30.0)
[2019-10-11 14:09] LABS: Troponin I Less than 0.010 ng/mL (< 0.028)
[2019-10-11] MEDS ORDERED: Acetaminophen 325 MG TAB PO PRN (14:23)
[2019-10-11] MEDS ORDERED: HumaLOG 300 UNITS/3 ML VIAL SC PRN ×3 (14:23→20:47)
[2019-10-11] MEDS ORDERED: Ondansetron PF 4 MG/2 ML Vial IVP PRN (14:23)
[2019-10-11] MEDS ORDERED: Dextrose 50% Abboject 50 ML SYRINGE SLOW IVP PRN (14:23)
[2019-10-11] MEDS ORDERED: Ondansetron ODT 4 MG TAB PO PRN (14:23)
[2019-10-11] MEDS ORDERED: Dextrose 5% in Water 1,000 ML IV PRN (14:23)
[2019-10-11 14:35] LABS: Amphetamine Not Detected (NotDetected); Barbiturates Screen Not Detected (NotDetected); Benzodiazepine Screen Not Detected (NotDetected); Cocaine Metabolite Screen Not Detected (NotDetected); Medtox Control Line Valid? VALID (VALID); Medtox Reader # READER 4; Methadone Detected (NotDetected); Methamphetamine Not Detected (NotDetected); Opiate Screen Not Detected (NotDetected); Oxycodone Screen Not Detected (NotDetected); Phencyclidine (PCP) Not Detected (NotDetected); THC/Cannabinoid Screen Not Detected (NotDetected); Tricyclic Screen Not Detected (NotDetected)
[2019-10-11 15:07] LABS: INR-International Normal Ratio 1.3; Prothrombin Time 16.2 SEC (12.0-14.7)
[2019-10-11 16:52] LABS: Troponin I 0.014 ng/mL (< 0.028)
[2019-10-11 17:39] VITALS: BMI 19.5
[2019-10-11] MEDS ORDERED: METHadone HCl 10 MG TAB PO PRN (18:19)
[2019-10-11] MEDS: cefTRIAXone\\ROCEPHIN 1 GM in Sodium Chloride 0.9% 100 ML IVPB SCH (19:24)
[2019-10-11] MEDS: Sodium Chloride 0.9% 1,000 ML IV SCH (19:25)
[2019-10-11] MEDS: Spironolactone 25 MG TAB PO SCH (20:34)
[2019-10-11] MEDS: Propranolol 10 MG TAB PO SCH (20:34)
--- NOTE | 2019-10-11 20:45 | CON ---
DATE OF CONSULTATION: 10/11/2019 REASON FOR CONSULTATION: SVT. HISTORY OF PRESENT ILLNESS: Mr. Strauss is a 64-year-old white gentleman, who comes to the hospital for altered mental status. He was noticed to be somnolent, so brother brought him to the ER, where he was found to have hepatic encephalopathy with an elevated ammonia level. During his initial evaluation, he was found to be in tachycardic, thought to be SVT, so he was in the 140s. He was given adenosine and he actually converted back to sinus rhythm. On my evaluation, he remains in sinus rhythm, but he still is confused. PAST MEDICAL HISTORY: 1. History of hep C cirrhosis. 2. Type 2 diabetes. 3. Hypertension. 4. Chronic back pain. 5. Thrombocytopenia. 6. Lower extremity cellulitis. PAST SURGICAL HISTORY: 1. Esophageal variceal banding x3. 2. Toe amputation x2. FAMILY HISTORY: Noncontributory. SOCIAL HISTORY: Marijuana in the past 50 years, young for an alcohol. No tobacco use. OUTPATIENT MEDICATIONS: 1. Rifaximin 550 mg b.i.d. 2. Spironolactone 200 mg a day. 3. Protonix. 4. Promethazine. 5. Metformin. 6. Lasix 80 mg b.i.d. 7. Methadone 40 mg q.a.m. 8. Insulin glargine Toujeo 86 units every morning. 9. Propranolol. 10. Ancef. 11. Lidocaine patch. 12. Metronidazole 250 mg p.o. t.i.d. REVIEW OF SYSTEMS: Unobtainable as the patient is currently confused. PHYSICAL EXAMINATION: VITAL SIGNS: Temperature is 98.6, pulse 89, respiratory rate 20, saturating 100% on room air, blood pressure 158/76. GENERAL: Awake, alert, oriented to person only, in no distress. HEENT: Normocephalic and atraumatic. NECK: Supple. LUNGS: Clear. CARDIOVASCULAR: S1 and S2. No S3 or S4. Grade 1/6 systolic murmur. ABDOMEN: Prominent. EXTREMITIES: No edema. SKIN: Warm and dry. LABORATORY DATA: Laboratory work was reviewed. White count of 2.4, hemoglobin 9.3, platelet count of 26. Coags were reviewed. Chemistries were reviewed. Troponin is negative x3. Ammonia was 87. TSH was 3.8. Creatinine 1.37. UA was 1+ blood. Toxicology, methadone was positive, detected, he is on this medication. EKGs were reviewed. ASSESSMENT: 1. Supraventricular tachycardia. 2. Hepatic encephalopathy. PLAN: 1. Not a good candidate for an ablation at this time given his hepatic encephalopathy and confusion. He may need one in the near future. 2. Currently, I would just continue his beta lotus for now. 3. We will consult EP in the next 24 to 48 hours depending on how he is doing, in case, he was to need an ablation in the near future. At this time, he is not a candidate given his encephalopathy. This has to get better. Thank you for letting us participate in the care of your patient. We will follow along. Job ID: [id number]
[2019-10-11 21:05] LABS: Hemoglobin A1c 6.1 % (4.0-6.0)
--- NOTE | 2019-10-11 21:11 | PDOC.EVN ---
Event Note - Event Note Event Note: 64 yo M with hx of cirrhosis brought in by EMS for AMS, was found to be in SVT, given adenosine & metoprolol & converted back to NSR. No prior cardiac hx per patient. Patient is A&O x1 so history is limited and unable to get ahold of family. Pt denies chest pain, or really anything at time of exam. ER: 6mg adnosine, 5mg Lopressor PE: A&O x1, asterixis, no FND, abd soft, non tender, ascites, feet with wrapping from amputation, stasis dermatitis Labs: see above Imaging: CTA for elevated Ddimer, negative for PE A/P: #. New onset SVT -NSR after adenosine & lopressor -New onset as far as record review goes-consult cards, recs appreciated -Trops neg x3 -Obtain echo -Check Mg -Could be due to methadone -Admit to tele #. Acute encephalopathy -No FND suggesting stroke -Ammonia elevate 87, give lactulose, titrate -No trauma per report, but confirm better hx with family. Stat CT head -Hyperglycemic, not in DKA -UDS -Blood cx #. Cirrhosis 2/2 Hepatitis C -Has been seen by Dr. Merritt -Need to do record review/touch base to see what tx patient has had -Not likely SBP but will give rocephin -MELD 18 (3-4% 90 day mortality)-need to see if followed by GI #. Pancytopenic -Likely 2/2 to cirrhosis -PBS, iron studies #. Hyperglycemia in IDDM2 -Aggressive sliding scale -Accuchecks -Home meds #. Opioid dependence -Restart home methadone to avoid withdrawal -Consider cutting down dose to see if attributing to AMS admit tele/inpatient dvt ppx: hold due to thrombocytopenia/SCDs dispo: >3 midnights code: full (recall family again tmrw)
[2019-10-11] MEDS: Rifaximin 550 MG TAB PO SCH (21:16)
[2019-10-11 21:17] LABS: Magnesium 2.3 mg/dL (1.6-2.6); Phosphorus 3.5 mg/dL (2.3-4.7)
[2019-10-11 21:18] LABS: Hemoglobin 10.6 g/dL (14.0-18.0); Mean Corpuscular HGB CONC 35.2 g/dL (32.0-36.0); Mean Corpuscular Volume 93.6 fL (78.0-98.0); Mean Platelet Volume 12.6 fL (7.4-10.4); Platelet Count 24 thou/uL (130-400); RBC Distribution Width 15.9 % (11.5-14.5); Red Blood Cell (RBC) Count 3.21 mill/uL (4.70-6.10); White Blood Cell (WBC) Count 2.4 thou/uL (4.8-10.8)
[2019-10-11 21:35] LABS: Band 1 % (5-11); Eosinophils 2 % (0-10); Lymphocytes 17 % (21-51); MDiff Complete? YES; Monocytes 9 % (0-10); Neutrophil 71 % (42-75); Platelet Morphology Comment Appears Decreased
--- NOTE | 2019-10-11 23:05 | CT ---
CT BRAIN WITHOUT CONTRAST: 10/11/19 HISTORY: Acute encephalopathy. FINDINGS: Comparison made with exam of 07/14/16. No evidence of acute infarct, hemorrhage, midline shift, or abnormal extra-axial fluid collections se en. The ventricular size is stable and the basilar cisterns patent. There are changes of chronic smal l vessel ischemic disease in the periventricular white matter. The bony calvarium is intact. IMPRESSION: No CT evidence of acute intracranial process. POS: [facility]
[2019-10-12] MEDS: Sodium Chloride 0.9% 1,000 ML IV SCH ×3 (02:18→17:12)
[2019-10-12] MEDS: Lidocaine 5% Patch TD SCH (02:33)
[2019-10-12 05:06] LABS: Anion Gap 13 mmol/L (10-20); BUN (Urea Nitrogen) 61 mg/dL (8.4-25.7); Calc. Creatinine Clearance 60 mL/min (70-130); Calcium 9.1 mg/dL (7.8-10.44); Carbon Dioxide 26 mmol/L (23-31); Chloride 108 mmol/L (98-107); Estimated GFR-MDRD 72; Glucose 112 mg/dL (80-115); Potassium 4.7 mmol/L (3.5-5.1); Sodium 142 mmol/L (136-145)
[2019-10-12 05:18] LABS: Hemoglobin 9.6 g/dL (14.0-18.0); MDiff Complete? YES; Mean Corpuscular HGB CONC 35.6 g/dL (32.0-36.0); Mean Corpuscular Hemoglobin 33.5 pg (27.0-31.0); Mean Corpuscular Volume 93.9 fL (78.0-98.0); Mean Platelet Volume 12.2 fL (7.4-10.4); Ovalocytes SLIGHT = 2-5 cells (100X) (0-1/hpf); Platelet Count 23 thou/uL (130-400); Platelet Morphology Comment Appears Decreased; RBC Distribution Width 15.9 % (11.5-14.5); Red Blood Cell (RBC) Count 2.85 mill/uL (4.70-6.10); White Blood Cell (WBC) Count 2.2 thou/uL (4.8-10.8)
--- NOTE | 2019-10-12 06:09 | PDOC.FM ---
- Subjective Subjective: Pt AxO x3 today. Still cannot tell me why he is here in the hospital. Denies pain. - Objective MAR Reviewed: Yes Vital Signs & Weight: Vital Signs (12 hours) Temp Pulse Resp BP Pulse Ox 10/12/19 04:00 97.6 F 70 18 133/64 100 10/11/19 19:38 98.6 F 88 20 136/62 100 Weight Weight 60.192 kg Result Diagrams: 10/12/19 04:22 10/12/19 04:22 Phys Exam - Physical Examination Constitutional: NAD Cardiovascular: RRR (systolic murmur over RUSB 01/19) Gastrointestinal: soft, non-tender Musculoskeletal: no edema (stasis dermatitis changes) Dx/Plan (1) Acute encephalopathy Code(s): G93.40 - ENCEPHALOPATHY, UNSPECIFIED Status: Acute (2) SVT (supraventricular tachycardia) Code(s): I47.1 - SUPRAVENTRICULAR TACHYCARDIA Status: Acute (3) Thrombocytopenia Code(s): D69.6 - THROMBOCYTOPENIA, UNSPECIFIED Status: Acute (4) Chronic back pain Code(s): M54.9 - DORSALGIA, UNSPECIFIED; G89.29 - OTHER CHRONIC PAIN Status: Chronic (5) Chronic kidney disease, stage 3 Status: Chronic (6) Hepatic cirrhosis due to chronic hepatitis C infection Code(s): B18.2 - CHRONIC VIRAL HEPATITIS C; K74.60 - UNSPECIFIED CIRRHOSIS OF LIVER Status: Chronic (7) Insulin dependent diabetes mellitus Code(s): E11.9 - TYPE 2 DIABETES MELLITUS WITHOUT COMPLICATIONS; Z79.4 - DETENTION (CURRENT) USE OF INSULIN Status: Chronic (8) Methadone dependence Code(s): F11.20 - OPIOID DEPENDENCE, UNCOMPLICATED Status: Chronic - Plan Plan: 64-year old male admitted for: Acute encephalopathy, likely hepatic - UDS + for methadone, known methadone dependence. Other drugs negative. - Head CT: negative - Ammonia level decreased from yesterday after restarting home lactulose. BM x8 overnight documented. - unclear why pt did not take medicines today (or for past 3 days possibly) New onset SVT, in NSR now. - converted w/ adenosine - Cardio, Shree consulted, appreciate recs. Continue beta lotus and may need ablation in future after encephalopathy improves. - telemetry monitoring Severe thrombocytopenia Pancytopenia - pt has chronic thrombocytopenia - likely secondary to cirrhotic disease of liver - INR and PT ordered. ANJEL on CKD - pt's baseline appears to be Cr of 1.2. - fluid resuscitate Chronic conditions: Methadone dependence - given 20mg tonight - usual dose of 40mg tomorrow morning. - However, this could be contributing to arrhythmias. Wean as possible. Pt has history of methadone dependence > 20 years. Cirrhosis 2/2 to Hep C - sees Dr. Merritt - ceftriaxone 1g daily for SBP prophylaxis during hospitalization - MELD score is 15, giving 3-4% of mortality in next 90 days IDDM type 2 - continue metformin and home 70/30 dose in AM if eating - sliding scale and hypoglycemia protocol - no gap, no ketones in urine, no hypoglycemia Code: FULL. Pt unable to tell us his code status. Attempted to call family with no response. Diet: Heart healthy, consistent carb Fluids: 125 NS VTE PPx: contraindicated GI PPx: none Addendum - Attending - Attending Attestation Date/Time: 10/12/19 2754 I personally evaluated the patient and discussed the management with . I agree with the History, Examination, Assessment and Plan documented above with any addition or exceptions noted below. Patient here for encephalopathy in the setting of severe cirrhosis. He is now back to baseline and AOx3. He also has SVT and EP is on board. Await recs. Dispo pending their recommendations.
[2019-10-12] MEDS ORDERED: Non-Formulary Item 1 EACH (Insulin Glargine,Hum.Rec.Anlog [Toujeo Solostar] 70 UNIT) SQ SCH (09:00)
[2019-10-12] MEDS: Insulin Glargine 70 UNITS in Pre-Filled Syringe 1 EACH SC SCH (09:01)
[2019-10-12] MEDS: metFORMIN 500 MG TAB PO SCH ×2 (09:01→17:12)
[2019-10-12] MEDS: Spironolactone 100 MG TAB PO SCH (09:01)
[2019-10-12] MEDS: METHadone HCl 10 MG TAB PO SCH (09:02)
[2019-10-12] MEDS: Rifaximin 550 MG TAB PO SCH ×2 (09:04→21:31)
[2019-10-12] MEDS: Lidocaine Patch Removal 1 EACH TOP SCH (13:13)
--- NOTE | 2019-10-12 13:54 | PDOC.BPN ---
- Brief Progress Note Informed by RN that pt family whom I tried to call earlier, was in room. Brother Kenneth and mother in room. Pt lives with his brother in a house and mother lives next door. Brother noticed progressively worsening confusion. States no other change in behavior other than he probably stopped taking his medication because it makes him have bowel movements often and pt has to use a bedside commode. Brother said that sometimes pt will take an extra methadone for pain and pt gets confused when he does this. Discussed titrating off the methadone entirely and trying alternatives for pain. Pt does have a medication tray with his daily meds planned in it. Affirms that indeed he needs to be compliant w/ medications. At baseline pt is AxO x3 and has no memory deficits. Thanked family for the information and for their support.
[2019-10-12] MEDS: cefTRIAXone\\ROCEPHIN 1 GM in Sodium Chloride 0.9% 100 ML IVPB SCH (17:11)
--- NOTE | 2019-10-12 17:44 | PDOC.CPN ---
- Subjective Date: 10/12/19 Time: 12:00 Interval history: He is doing much better. Encephalopathy resolved now. - Review of Systems General: denies: fever/chills, weight/appetite/sleep changes, night sweats, fatigue Respiratory: denies: cough, congestion, shortness of breath, exercise intolerance Cardiovascular: denies: chest pain, palpitation, edema, paroxysmal nocturnal dyspnea, orthopnea Gastrointestinal: denies: nausea, vomiting, diarrhea, constipation, abd pain, GI bleeding Musculoskeletal: denies: pain, tenderness, stiffness, swelling, arthritis/ arthralgias Neurological: denies: numbness, syncope, seizure, weakness - Objective Allergies/Adverse Reactions: Allergies Allergy/AdvReac Type Severity Reaction Status Date / Time No Known Allergies Allergy Verified 02/24/19 11:46 Visit Medications: Current Medications Acetaminophen (Tylenol) 650 mg PO Q4H PRN PRN Reason: Headache/Fever/Mild Pain (1-3) Dextrose/Water (Dextrose 50%) 25 gm SLOW IVP PRN PRN PRN Reason: Hypoglycemia Glucagon (Glucagon) 1 mg IM PRN PRN PRN Reason: Hypoglycemia Dextrose/Water (D5w) 1,000 mls @ 0 mls/hr IV .Q0M PRN PRN Reason: Hypoglycemia Ceftriaxone Sodium 1 gm/ (Sodium Chloride) 100 mls @ 200 mls/hr IVPB 1600 [facility] Last Admin: 10/12/19 17:11 Dose: 100 mls Sodium Chloride (Normal Saline 0.9%) 1,000 mls @ 125 mls/hr IV .Q8H [facility] Last Admin: 10/12/19 17:12 Dose: 1,000 mls Insulin Glargine 70 units/ (Miscellaneous Medication) 0.7 mls @ 0 mls/hr SC QAM [facility] Last Admin: 10/12/19 09:01 Dose: 0.7 mls Insulin Human Lispro (Humalog) 0 units SC .BEDTIME SLIDING SC PRN PRN Reason: Bedtime Correctional Scale Last Admin: 10/11/19 22:09 Dose: 2 unit Insulin Human Lispro (Humalog) 0 units SC .AGGRESSIVE SLIDING PRN PRN Reason: Aggressive Correctional Scale Last Admin: 10/12/19 17:12 Dose: 6 unit Lactulose (Lactulose) 20 gm PO BID [facility] Last Admin: 10/12/19 09:02 Dose: 20 gm Lidocaine (Lidoderm 5% Patch) 1 patch TD 0000 [facility] Last Admin: 10/12/19 02:33 Dose: Not Given Metformin HCl (Glucophage) 1,000 mg PO BID-[facility] Last Admin: 10/12/19 17:12 Dose: 1,000 mg Methadone HCl (Dolophine Hcl) 40 mg PO QAM [facility] Last Admin: 10/12/19 09:02 Dose: 40 mg Miscellaneous Medication (Lidocaine Patch Removal) 1 each TOP 1200 [facility] Last Admin: 10/12/19 13:13 Dose: 1 each Ondansetron HCl (Zofran Odt) 4 mg PO Q6H PRN PRN Reason: Nausea/Vomiting Ondansetron HCl (Zofran) 4 mg IVP Q6H PRN PRN Reason: Nausea/Vomiting Pantoprazole Sodium (Protonix) 40 mg PO DAILY [facility] Last Admin: 10/12/19 09:04 Dose: 40 mg Propranolol HCl (Inderal) 20 mg PO HS [facility] Last Admin: 10/11/19 20:34 Dose: 20 mg Rifaximin (Xifaxan) 550 mg PO BID [facility] Last Admin: 10/12/19 09:04 Dose: 550 mg Sodium Chloride (Flush - Normal Saline) 10 ml IVF PRN PRN PRN Reason: Saline Flush Spironolactone (Aldactone) 50 mg PO QPM [facility] Last Admin: 10/11/19 20:34 Dose: 50 mg Spironolactone (Aldactone) 100 mg PO QAM-[facility] Last Admin: 10/12/19 09:01 Dose: 100 mg Vital Signs & Weight: Vital Signs Temp Pulse Pulse Resp BP BP Pulse Ox 10/12/19 16:25 98.6 F 74 16 126/62 100 10/12/19 12:32 81 16 125/60 100 10/12/19 11:10 75 146/70 H 10/12/19 07:35 98.7 F 72 16 112/59 L 100 Admit Weight 132 lb 11.2 oz Weight 132 lb 11.2 oz - Physical Exam General: alert & oriented x3 HEENT: mucus membranes moist Neck: supple neck Cardiac: regular rate and rhythm Lungs: clear to auscultation Neuro: grossly intact Abdomen: active bowel sounds Extremities: no edema Skin: clear Musculoskeletal: no pain - Labs Result Diagrams: 10/12/19 04:22 10/12/19 04:22 Troponin/CKMB Troponin I 0.014 ng/mL (< 0.028) 10/11/19 16:08 - Telemetry Sinus rhythms and dysrhythmias: sinus rhythm - Assessment/Plan Assessment/Plan: 1. SVT 2. Hep C Cirrhosis 3. Thrombocytopenia. 4. Medication non compliance. 5. Hepatic encephalopathy, improved with lactulose. PLAN: - EP evaluated and he is a candidate for an ablation. - He wants to think about this. - If decides against ablation would only continue current BB dose.
--- NOTE | 2019-10-12 18:51 | EKG ---
Test Reason : Blood Pressure : / mmHG Vent. Rate : 142 BPM Atrial Rate : 156 BPM P-R Int : 000 ms QRS Dur : 064 ms QT Int : 312 ms P-R-T Axes : 000 -27 034 degrees QTc Int : 479 ms Supraventricular tachycardia Nonspecific ST abnormality Abnormal ECG Confirmed by GET MCDERMOTT, DR. Gerber ([id number]) on 10/12/2019 6:51:01 PM Referred By: Confirmed By:DR. Buzz DEUTSCH MD
--- NOTE | 2019-10-12 19:52 | CON ---
DATE OF CONSULTATION: 10/12/2019 HISTORY OF PRESENT ILLNESS: I am seeing Mr. Strauss at our [facility] telemetry floor as an electrophysiology consult regarding his supraventricular tachycardia. His problems are: 1. Narrow complex SVT from terminating with adenosine with difficult to visualize P waves, but likely AVNRT. 2. Preserved LVEF is 50% to 55%, mild MR, TR on echo from 10/12/2019. 3. Advanced liver cirrhosis with history of hep C. a. Presentation with hepatic encephalopathy, now improved. 4. History of IV drug use, on methadone, in remission. 5. History of type 2 diabetes. 6. Hypertension. 7. Marked thrombocytopenia and low white cell count. 8. History of esophageal variceal banding x3 in the past as well as toe amputation. ALLERGIES: NONE NOTED. MEDICATIONS: At home included: 1. Rifaximin. 2. Pantoprazole. 3. Promethazine. 4. Metformin. 5. Furosemide. 6. Methadone. 7. Insulin. 8. Propranolol. 9. Lidocaine. 10. Spironolactone. 11. Lactulose. SUBJECTIVE: Mr. Strauss is here with severe case of hepatic encephalopathy. He is confused and also did not feel good. While in the ER, he was noted to have a rapid narrow complex tachycardia. He received adenosine, which promptly terminated the arrhythmia as no recurrence noted since. On further questioning, he has history of rapid heartbeats in the past, although cannot give a clear account when was and what nature of the arrhythmia it was. He does not pass out with the episodes. Denies current angina-like chest pain. No PND or orthopnea. No lower extremity edema noted. Respiratory system otherwise unremarkable. PAST MEDICAL HISTORY: As above. He has a history of chronic back pain, most likely history of lower extremity cellulitis. He was hospitalized recently in August with toe amputation. SOCIAL HISTORY: He has history of IV drug use, on chronic methadone therapy. Also history of former marijuana use. Prior EtOH abuse, but has been sober for last 15 years. Denies smoking. OBJECTIVE DATA: VITAL SIGNS: Blood pressure is 125/60, heart rate 81, respirations 16, temperature 98.7 degrees Fahrenheit. GENERAL: Alert and oriented man, in no apparent distress. NECK: Supple. Jugular veins not distended. CHEST: Coarse without crackles. HEART: Sounds are regular to rate and rhythm. No murmur or gallop. ABDOMEN: Benign. Bowel sounds positive. EXTREMITIES: Lower extremities without edema, clubbing, or cyanosis. Pulses are adequate. NEUROLOGIC: The patient is nonfocal. MUSCULOSKELETAL: Without joint swelling or deformity. SKIN: Without rash. DATABASE: EKG is reviewed on 10/11/2019 at 9:35 a.m. reveals a narrow complex SVT, rate of 142 beats per minute, P waves difficult to visualize, but possibly burden inside the QRS. Rhythm strips show clear termination likely diagnosing administration with subsequent complete AV block, which quickly resolves and normal rhythm ensues. LABORATORY DATA: White count is 2.2, hemoglobin 9.6, and platelet count is 23. The INR is 1.3. D-dimer 9.44. Sodium 142, potassium 4.7, BUN is 61, and creatinine 1.03. AST and ALT are 27 and 22, total bilirubin is 3. Troponin I is less than 0.01. BNP is 57.9. ASSESSMENT AND PLAN: Mr. Strauss is a 64-year-old man with history of advanced liver cirrhosis, esophageal varices, history of esophageal banding, and toe amputation with history of diabetes, who presented with hepatic encephalopathy, but resuming his lactulose, his symptoms might have improved. He is currently not remarkably confused. On the other hand, he was also noted to have a narrow complex tachycardia, although he has history of palpitations, not clear whether this is his first presentation or prior episodes are noted and at this point, he seems to be maintaining sinus rhythm without any suppressive agents. 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 I explained the potential treatment options including medication versus ablation therapies. At this point, he is considering ablation, but would like to think about it more and follow up with us as an outpatient in the office. Hence, his stable status is very reasonable and consider adding low-dose beta-lotus as tolerated to his regimen. I would be happy to see him back if felt necessary in the office in the near future. Thrombocytopenia, likely due to the liver disease could make bleeding diathesis or increase, likely will need platelet transfusion in case ablation is reconsidered in the future. Job ID: [id number]
[2019-10-12] MEDS: Propranolol 10 MG TAB PO SCH (21:31)
[2019-10-12] MEDS: Spironolactone 25 MG TAB PO SCH (21:31)
[2019-10-13] MEDS: Sodium Chloride 0.9% 1,000 ML IV SCH (01:43)
[2019-10-13] MEDS: Lidocaine 5% Patch TD SCH (01:44)
--- NOTE | 2019-10-13 05:35 | PDOC.FM ---
- Subjective Subjective: Pt is feeling good this morning. He remembers me speaking with family yesterday. He knows cardiology wants to do "procedure vs medication" as an outpatient for his heart. Denies pain today. Says the turkey will be ready at 1 PM so hopes he can be discharged by then. - Objective MAR Reviewed: Yes Vital Signs & Weight: Vital Signs (12 hours) Temp Pulse Resp BP Pulse Ox 10/13/19 03:16 99.0 F 74 20 121/62 100 10/12/19 21:20 98.3 F 77 16 129/63 100 Weight Admit Weight 60.192 kg Weight 60.192 kg I&O: 10/11/19 10/12/19 10/13/19 06:59 06:59 06:59 Intake Total 1097 3260 Balance 1097 3260 Result Diagrams: 10/13/19 05:56 10/12/19 04:22 Phys Exam - Physical Examination Constitutional: NAD Respiratory: no wheezing, clear to auscultation bilateral Cardiovascular: RRR (systolic 3/6 murmur c/w aortic stenosis) Gastrointestinal: soft, non-tender, no distention, positive bowel sounds Musculoskeletal: no edema Psychiatric: normal affect, A&O x 3 (laughs appropriately) Dx/Plan (1) Acute encephalopathy Code(s): G93.40 - ENCEPHALOPATHY, UNSPECIFIED Status: Acute (2) SVT (supraventricular tachycardia) Code(s): I47.1 - SUPRAVENTRICULAR TACHYCARDIA Status: Acute (3) Thrombocytopenia Code(s): D69.6 - THROMBOCYTOPENIA, UNSPECIFIED Status: Acute (4) Chronic back pain Code(s): M54.9 - DORSALGIA, UNSPECIFIED; G89.29 - OTHER CHRONIC PAIN Status: Chronic (5) Chronic kidney disease, stage 3 Status: Chronic (6) Hepatic cirrhosis due to chronic hepatitis C infection Code(s): B18.2 - CHRONIC VIRAL HEPATITIS C; K74.60 - UNSPECIFIED CIRRHOSIS OF LIVER Status: Chronic (7) Insulin dependent diabetes mellitus Code(s): E11.9 - TYPE 2 DIABETES MELLITUS WITHOUT COMPLICATIONS; Z79.4 - FUNDING ANALYST (CURRENT) USE OF INSULIN Status: Chronic (8) Methadone dependence Code(s): F11.20 - OPIOID DEPENDENCE, UNCOMPLICATED Status: Chronic - Plan Plan: 64-year old male admitted for: Acute encephalopathy, likely hepatic - UDS + for methadone, known methadone dependence. Other drugs negative. - Head CT: negative - Ammonia level decreased from admission after restarting home lactulose. BM x8 overnight documented. - after talk with family who seems supportive, reports pt gets noncompliant w/ meds due to excessive bowel movements. New onset SVT, in NSR now. Hx of rheumatic fever - converted w/ adenosine - Cardio, Shree consulted, appreciate recs. Continue beta lotus. - EP Debra, may see outpatient to set up ablation. Recs platelet transfusion prior to procedure. - telemetry monitoring - ECHO w/ calcified AV w/ decreased cusp opening w/o hemodynamic compromise, mild MR/TR. EF 50-55% Severe thrombocytopenia Pancytopenia - pt has chronic thrombocytopenia. Will order transfusion of platelets prior to cardiac ablation. - likely secondary to cirrhotic disease of liver - INR and PT ordered. ANJEL on CKD - pt's baseline appears to be Cr of 1.2. - fluid resuscitate Chronic conditions: Methadone dependence - given 20mg tonight - usual dose of 40mg tomorrow morning. - However, this could be contributing to arrhythmias. Wean as possible. Pt has history of methadone dependence > 20 years. Cirrhosis 2/2 to Hep C - sees Dr. Merritt - ceftriaxone 1g daily for SBP prophylaxis during hospitalization - MELD score is 15, giving 3-4% of mortality in next 90 days IDDM type 2 - continue metformin and home 70/30 dose in AM if eating - sliding scale and hypoglycemia protocol - no gap, no ketones in urine, no hypoglycemia Dispo: likely may d/c today. f/u w/ PCP next Thursday or Thursday (early next week) . Code: FULL. Diet: Heart healthy, consistent carb Fluids: none VTE PPx: contraindicated GI PPx: none Addendum - Attending - Attending Attestation Date/Time: 10/13/19 1116 I personally evaluated the patient and discussed the management with . I agree with the History, Examination, Assessment and Plan documented above with any addition or exceptions noted below. Patient doing well and back to mental status baseline. He is stable for discharge. Possible ablation to be performed outpatient by EP. He will continue on Propranolol until that time to help prevent recurrence of SVT.
[2019-10-13 06:18] LABS: #Eosinphils 0.1 thou/uL (0.0-0.7); #Lymphocytes 0.4 thou/uL (1.20-3.40); #Monocytes 0.2 thou/uL (0.11-0.59); #Neutrophils 0.7 thou/uL (1.40-6.50); %Eosinophils 5.8 % (0.0-10.0); %Lymphocytes 29.7 % (21.0-51.0); %Monocytes 14.1 % (0.0-10.0); %Neutrophils 50.4 % (42.0-75.0); Hemoglobin 8.5 g/dL (14.0-18.0); Mean Corpuscular HGB CONC 35.3 g/dL (32.0-36.0); Mean Corpuscular Hemoglobin 33.3 pg (27.0-31.0); Mean Corpuscular Volume 94.3 fL (78.0-98.0); Mean Platelet Volume 11.3 fL (7.4-10.4); Platelet Count 19 thou/uL (130-400); RBC Distribution Width 15.6 % (11.5-14.5); Red Blood Cell (RBC) Count 2.55 mill/uL (4.70-6.10); White Blood Cell (WBC) Count 1.5 thou/uL (4.8-10.8)
[2019-10-13] MEDS: METHadone HCl 10 MG TAB PO SCH (09:04)
[2019-10-13] MEDS: Spironolactone 100 MG TAB PO SCH (09:04)
[2019-10-13] MEDS: metFORMIN 500 MG TAB PO SCH (09:04)
[2019-10-13] MEDS: Insulin Glargine 70 UNITS in Pre-Filled Syringe 1 EACH SC SCH (09:05)
[2019-10-13] MEDS: Rifaximin 550 MG TAB PO SCH (09:05)
[2019-10-13 11:53] VITALS: BP 121/61; TEMP 99.3
[2019-10-13] MEDS: Lidocaine Patch Removal 1 EACH TOP SCH (12:21)
== END 2019-10-13 13:03 | disposition home or self-care (01) | DRG 442 ==
LOC: ERS 09:33 → 2NO 15:05
PROVIDERS: ADMIT Family Medicine; ATTEND Family Medicine
DX: K72.90 Hepatic failure, unspecified without coma (principal); N17.9 Acute kidney failure, unspecified; F11.20 Opioid dependence, uncomplicated; I47.1 Supraventricular tachycardia; D61.818 Other pancytopenia; G89.29 Other chronic pain; M54.9 Dorsalgia, unspecified; I12.9 Hypertensive chronic kidney disease with stage 1 through stage 4 chronic kidney disease, or unspecified chronic kidney disease; N18.3 Chronic kidney disease, stage 3 (moderate); E11.22 Type 2 diabetes mellitus with diabetic chronic kidney disease; B18.2 Chronic viral hepatitis C; K74.60 Unspecified cirrhosis of liver; Z91.14 Patient's other noncompliance with medication regimen; Z79.84 Long term (current) use of oral hypoglycemic drugs; Z79.899 Other long term (current) drug therapy; Z79.4 Long term (current) use of insulin; Z89.429 Acquired absence of other toe(s), unspecified side; E11.43 Type 2 diabetes mellitus with diabetic autonomic (poly)neuropathy; K31.84 Gastroparesis; E11.65 Type 2 diabetes mellitus with hyperglycemia
CPT/HCPCS: 36415; 36416; 70450; 71045; 71275; 80048; 80053; 80306; 80307; 81003; 81015; 82140; 82550; 82728; 83036; 83540; 83605; 83690; 83735; 83880; 84100; 84443; 84484; 85025; 85060; 85379; 85610; 87040; 93005; 93306; J0153; J0696; J1815; J3490; Q9967

== ENCOUNTER 2019-10-21 13:13 | Emergency (ER) | payer MEDICARE, MEDICAID ==
--- NOTE | 2019-10-21 14:23 | RAD ---
XR Chest 1 View Portable HISTORY: Weakness COMPARISON: 10/11/2019 FINDINGS: The heart size is normal. The lungs are well expanded without focal areas of consolidation, pneumothorax or pleural effusions. The left upper extremity PICC line has been removed in the interim. IMPRESSION: No radiographic evidence of acute cardiopulmonary process.
[2019-10-21 14:29] LABS: #Eosinphils 0.1 thou/uL (0.0-0.7); #Lymphocytes 0.4 thou/uL (1.20-3.40); #Monocytes 0.3 thou/uL (0.11-0.59); #Neutrophils 1.6 thou/uL (1.40-6.50); %Eosinophils 2.4 % (0.0-10.0); %Lymphocytes 15.7 % (21.0-51.0); %Monocytes 12.9 % (0.0-10.0); %Neutrophils 68.9 % (42.0-75.0); Hemoglobin 10.1 g/dL (14.0-18.0); Mean Corpuscular Hemoglobin 33.6 pg (27.0-31.0); Mean Corpuscular Volume 93.4 fL (78.0-98.0); Mean Platelet Volume 11.3 fL (7.4-10.4); Platelet Count 26 thou/uL (130-400); Red Blood Cell (RBC) Count 3.02 mill/uL (4.70-6.10); White Blood Cell (WBC) Count 2.4 thou/uL (4.8-10.8)
[2019-10-21 14:44] LABS: ALT (SGPT) 27 U/L (8-55); AST (SGOT) 36 U/L (5-34); Albumin 4.2 g/dL (3.4-4.8); Alkaline Phosphatase 80 U/L (40-110); Anion Gap 13 mmol/L (10-20); BUN (Urea Nitrogen) 79 mg/dL (8.4-25.7); Bilirubin, Total 3.8 mg/dL (0.2-1.2); Calc. Creatinine Clearance 0 mL/min (70-130); Calcium 9.4 mg/dL (7.8-10.44); Carbon Dioxide 29 mmol/L (23-31); Chloride 97 mmol/L (98-107); Estimated GFR-MDRD 43; Globulin 3.5 g/dL (2.4-3.5); Glucose 515 mg/dL (80-115); Lipase 12 U/L (8-78); Protein, Total 7.7 g/dL (5.8-8.1); Sodium 134 mmol/L (136-145)
[2019-10-21 15:05] LABS: CKMB 1.5 ng/mL (0-6.6)
[2019-10-21 15:08] LABS: Bacteria/HPF None Seen HPF (None Seen); Bilirubin Negative (Negative); Blood, Urine 1+ (Negative); Clarity Clear (Clear); Glucose, Urine (Dipstick) Greater than 1000 mg/dL (Negative); Leukocyte Negative Leu/uL (Negative); Nitrite Negative (Negative); Protein, Urine (Dipstick) 30 mg/dL (Neg-Trace); Squamous Epithelial None Seen HPF (0-3); Urobilinogen Normal mg/dL (Less than 2); WBC/HPF 0-3 HPF (0-3)
== END 2019-10-21 17:24 | disposition home or self-care (01) ==
LOC: ERS 13:13
DX: K72.90 Hepatic failure, unspecified without coma (principal); E11.40 Type 2 diabetes mellitus with diabetic neuropathy, unspecified; I10 Essential (primary) hypertension; D64.9 Anemia, unspecified; Z79.84 Long term (current) use of oral hypoglycemic drugs; Z79.899 Other long term (current) drug therapy
CPT/HCPCS: 36415; 36416; 71045; 80053; 81003; 81015; 82010; 82140; 82553; 83690; 84484; 85025; 93005

== ENCOUNTER 2019-10-24 21:24 | Inpatient (IN) | payer MEDICARE, MEDICAID ==
[2019-10-24 23:06] LABS: Hemoglobin 11.6 g/dL (14.0-18.0); Mean Corpuscular HGB CONC 35.8 g/dL (32.0-36.0); Mean Corpuscular Hemoglobin 32.9 pg (27.0-31.0); Mean Corpuscular Volume 91.9 fL (78.0-98.0); RBC Distribution Width 15.9 % (11.5-14.5); Red Blood Cell (RBC) Count 3.51 mill/uL (4.70-6.10); White Blood Cell (WBC) Count 4.3 thou/uL (4.8-10.8)
[2019-10-24] MEDS ORDERED: Lorazepam 2 MG/ML VIAL ONE (23:24)
[2019-10-24 23:25] LABS: ALT (SGPT) 24 U/L (8-55); AST (SGOT) 25 U/L (5-34); Albumin 4.3 g/dL (3.4-4.8); Alkaline Phosphatase 80 U/L (40-110); Anion Gap 19 mmol/L (10-20); BUN (Urea Nitrogen) 116 mg/dL (8.4-25.7); Bilirubin, Total 3.1 mg/dL (0.2-1.2); Calc. Creatinine Clearance 0 mL/min (70-130); Carbon Dioxide 25 mmol/L (23-31); Chloride 96 mmol/L (98-107); Estimated GFR-MDRD 32; Globulin 3.8 g/dL (2.4-3.5); Glucose 76 mg/dL (80-115); Potassium 4.5 mmol/L (3.5-5.1); Protein, Total 8.1 g/dL (5.8-8.1); Sodium 135 mmol/L (136-145)
[2019-10-24 23:33] LABS: #Eosinphils 0.2 thou/uL (0.0-0.7); #Lymphocytes 0.8 thou/uL (1.20-3.40); #Monocytes 0.4 thou/uL (0.11-0.59); #Neutrophils 2.9 thou/uL (1.40-6.50); %Basophils 0.4 % (0.0-1.0); %Eosinophils 3.7 % (0.0-10.0); %Lymphocytes 19.4 % (21.0-51.0); %Monocytes 9.8 % (0.0-10.0); %Neutrophils 66.6 % (42.0-75.0); Mean Platelet Volume 11.5 fL (7.4-10.4); Platelet Count 34 thou/uL (130-400); Platelet Morphology Comment Appears Decreased
[2019-10-24 23:44] LABS: CKMB 1.6 ng/mL (0-6.6)
[2019-10-25] MEDS ORDERED: Lorazepam 2 MG/ML VIAL ONE (00:39)
[2019-10-25 00:47] LABS: INR-International Normal Ratio 1.3; Prothrombin Time 15.8 SEC (12.0-14.7)
--- NOTE | 2019-10-25 01:04 | PDOC.FPRHP ---
- History of Present Illness Chief Complaint: AMS History of Present Illness: Pt is a 64 yo M with history of DM, Cirrhosis 2011, HTN, and SVT who presents with hepatic encephalopathy. He was found by his brother and was unresponsive at that time, so EMS was called. He has been taking a whole tablet of Methadone , but today he only took half. Home health, mother, and brother are questioning if he is taking his prescribed amount of Lactulose, because he is not having regular bowel movements. ED Course: In the ED, he received 1L of fluid, 2 doses of lactulose MS, 1 mg Ativan IM, 0.5 mg Ativan IV, and 1 Amp of D50 - Allergies/Adverse Reactions Allergies Allergy/AdvReac Type Severity Reaction Status Date / Time No Known Allergies Allergy Verified 02/24/19 11:46 - Home Medications Medication Instructions Recorded Confirmed Type Rifaximin [Xifaxan] 550 mg PO BID 08/29/13 10/11/19 History Spironolactone 100 mg PO QAM 08/29/13 10/11/19 History Pantoprazole [Protonix] 40 mg PO DAILY 09/16/14 10/11/19 History Promethazine HCl 25 mg PO TID PRN 09/18/15 10/11/19 History metFORMIN HCl [Glucophage] 1,000 mg PO BID-WM 09/18/15 10/11/19 History Furosemide [Lasix] 80 mg PO BID #0 tab 06/30/16 10/25/19 Rx METHadone HCl [Methadose] 40 mg PO QAM 02/14/19 10/11/19 History Insulin Glargine,Hum.Rec.Anlog 86 unit SQ QAM 02/24/19 10/25/19 History [Toujeo Solostar] Propranolol [Inderal] 2 tab PO HS 08/17/19 10/25/19 History Lidocaine 5% Patch [Lidoderm 5% 1 patch TD 0000 patch 08/24/19 10/11/19 Rx Patch] Lactulose 10 GM/15ML Oral Magda 30 ml PO BID 10/11/19 10/11/19 History [Lactulose] Spironolactone 50 mg PO QPM 10/11/19 10/11/19 History Insulin Aspart [Novolog Flexpen] 5 unit SC TID 10/25/19 10/25/19 History - History PMHx: DM, Cirrhosis 2011, HTN, Hx of s.aureus bacteremia after toe amputation, hx of SVT PSHx: L 1st toe amputation and R 1st & 2nd toe amputation FHx: Mom-GERD Social: No alcohol or tobacco. Recreational drug use in the past. Now on Methadone - Review of Systems ROS unobtainable: due to mental status - Vital signs BP: 111/58 HR: 56 RR: 20 Tmax: 97.6 Pox: 99% on RA Wt: 63.5 kg - Physical Exam -Constitutional: Slightly responsive to painful stimuli. HEENT: normocephalic and atraumatic, conjunctiva clear, no scleral icterus, normal nasal mucosa -HEENT: Dry mucous membranes Neck: supple, trachea midline, no LAD Heart: RRR, normal S1/S2 Lungs: CTAB Abdomen: soft, non-tender, bowel sounds present, no masses/distention -Abdomen: Scaphoid abdomen Musculoskeletal: normal structure, normal tone -Neurological: Unable to assess due to mental status Skin: no rash/lesions, no jaundice Heme/Lymphatic: no unusual bruising or bleeding, no purpura, no petechia, no LAD FMR H&P: Results - Labs Result Diagrams: 10/25/19 03:10 10/25/19 03:10 Lab results: WBC 4.3 thou/uL (4.8-10.8) L 10/24/19 22:52 Hgb 11.6 g/dL (14.0-18.0) L 10/24/19 22:52 Hct 32.3 % (42.0-52.0) L 10/24/19 22:52 MCV 91.9 fL (78.0-98.0) 10/24/19 22:52 Plt Count 34 thou/uL (130-400) L 10/24/19 22:52 Neutrophils % 66.6 % (42.0-75.0) 10/24/19 22:52 Sodium 135 mmol/L (136-145) L 10/24/19 22:52 Potassium 4.5 mmol/L (3.5-5.1) 10/24/19 22:52 Chloride 96 mmol/L (98-107) L 10/24/19 22:52 Carbon Dioxide 25 mmol/L (23-31) 10/24/19 22:52 BUN 116 mg/dL (8.4-25.7) H 10/24/19 22:52 Creatinine 2.10 mg/dL (0.7-1.3) H 10/24/19 22:52 Glucose 76 mg/dL (80-115) L 10/24/19 22:52 Lactic Acid 4.3 mmol/L (0.5-2.2) H* 10/25/19 00:26 Calcium 10.0 mg/dL (7.8-10.44) 10/24/19 22:52 Total Bilirubin 3.1 mg/dL (0.2-1.2) H 10/24/19 22:52 AST 25 U/L (5-34) 10/24/19 22:52 ALT 24 U/L (8-55) 10/24/19 22:52 Alkaline Phosphatase 80 U/L (40-110) 10/24/19 22:52 Ammonia 117 umol/L (18-72) H 10/24/19 22:52 CK-MB (CK-2) 1.6 ng/mL (0-6.6) 10/24/19 22:52 Serum Total Protein 8.1 g/dL (5.8-8.1) 10/24/19 22:52 Albumin 4.3 g/dL (3.4-4.8) 10/24/19 22:52 FMR H&P: A/P - Problem List (1) Acute encephalopathy Current Visit: No Status: Acute Code(s): G93.40 - ENCEPHALOPATHY, UNSPECIFIED (2) Hypoglycemia due to insulin Current Visit: No Status: Acute Code(s): E16.0 - DRUG-INDUCED HYPOGLYCEMIA WITHOUT COMA; T38.3X5A - ADVERSE EFFECT OF INSULIN AND ORAL HYPOGLYCEMIC DRUGS, INIT (3) Chronic kidney disease, stage 3 Current Visit: No Status: Chronic (4) Hypertension associated with stage 3 chronic kidney disease due to type 2 diabetes mellitus Current Visit: No Status: Chronic Code(s): E11.22 - TYPE 2 DIABETES MELLITUS W DIABETIC CHRONIC KIDNEY DISEASE; I12.9 - HYPERTENSIVE CHRONIC KIDNEY DISEASE W STG 1-4/UNSP CHR KDNY; N18.3 - CHRONIC KIDNEY DISEASE, STAGE 3 ( MODERATE) (5) Insulin dependent diabetes mellitus Current Visit: No Status: Chronic Code(s): E11.9 - TYPE 2 DIABETES MELLITUS WITHOUT COMPLICATIONS; Z79.4 - TRANSPORT TANK TECHNICIAN (CURRENT) USE OF INSULIN - Plan Pt is a 64 yo M with history of DM, Cirrhosis 2011, HTN, and SVT who presents with hepatic encephalopathy. 1. Hepatic Encephalopathy/ AMS Ammonia: 117, Previous level: 81 * Will give Lactulose MS Q4H due to AMS * Will monitor vitals closely * Will monitor I&O * LA: 4.3, Will repeat * GCS: 4 2. ANJEL Cre: 2.1, Baseline: 1.2 * Given 1L in ED * Will give another L bolus * Will give NS @ 75 ml/h 3. SVT Regular rate & rhythm currently * Seen by Dr. Richardson * Brother says they were to f/u with him outpt 11/10/19 4. DM II * Will rec home meds * DM protocol * Q1H Accuchecks 5. Cirrhosis 2/2 Hep C * Treating as above 6. HTN BP: 111/58 * Will monitor and consider restarting home meds. Diet: NPO Code Status: Full PCP: B[facility] Summers Lines: Peripheral, NS @ 75 DVT PPx: SCDs Dispo: IMCU Inpt, LOS > 48H. FMR H&P: Upper Level - Plan Date/Time: 10/25/19 0103 Halima Giles MD, PGY-3 have evaluated this patient and agree with findings/ plan as outlined by advisory intern resident. Pertinent changes/additions are listed here. Pt admitted for hepatic encephalopathy 2/2 hypovolemia and lactulose noncompliance. Ammonia of 113. Not taking lactulose regularly. Will give lactulose enema every hour until he stools and then space out to every four hours after laxation is achieved. Pt has a hx of hep c cirrhosis, recent SVT during prior hospitalization, diabetes mellitus, and hx of drug use on methadone. His troponin is elevated. We will trend. I suspect he is dehydrated. We ordered an additional 1L of fluids because he additionally had a lactic acid of 4.3 We will admit to IMCU as he is fairly unresponsive and will monitor closely. ABG was normal and so as of right now he is protecting his airway. Blood sugar on repeat CMP was 55. Pt was given an amp of D50. We will check his sugars every hour. Addendum - Attending - Attending Attestation Date/Time: 10/25/19 1026 I personally evaluated the patient and discussed the management with the team. I agree with the History, Examination, Assessment and Plan documented above with any addition or exceptions noted below. Patient with HE, hypoglycemia, opioid use. He is responsive to painful stimuli and breathing without difficulty. Plan on MS lactulose with resp monitoring with ETCO2 in IMCU. If necessary will intubate, but currently he has no issues with oxygenation, ventilation, and appears to be protecting his airway. Trial of narcan could be considered.
[2019-10-25] MEDS ORDERED: Lactulose 10 GM/15 ML Oral Solution PR SCH (02:30)
[2019-10-25] MEDS ORDERED: Acetaminophen 650 MG Suppository PR PRN (02:56)
--- NOTE | 2019-10-25 02:56 | CT ---
Head CT without contrast 10/25/2019: COMPARISON: 10/11/2019 HISTORY: Altered mental status, confusion TECHNIQUE: Axial CT imaging at 5 mm intervals from vertex through skull base without contrast FINDINGS: There is wall thickening of the maxillary sinus on the right with postsurgical changes. Agvi ged paranasal sinuses and mastoid air cells demonstrate no acute findings. No intracranial hemorrhage, midline shift, mass effect, or ventricular enlargement. There is atherosclerotic calcification of the cavernous carotid arteries and the distal vertebral art eries. IMPRESSION: Chronic findings as above. No acute findings.
[2019-10-25] MEDS ORDERED: Sodium Chloride 0.9% 1,000 ML IV SCH (03:00)
[2019-10-25 03:26] LABS: #Eosinphils 0.1 thou/uL (0.0-0.7); #Lymphocytes 0.5 thou/uL (1.20-3.40); #Monocytes 0.4 thou/uL (0.11-0.59); #Neutrophils 4.8 thou/uL (1.40-6.50); %Basophils 0.2 % (0.0-1.0); %Eosinophils 0.9 % (0.0-10.0); %Lymphocytes 8.8 % (21.0-51.0); %Monocytes 7.7 % (0.0-10.0); %Neutrophils 82.4 % (42.0-75.0); Hemoglobin 11.2 g/dL (14.0-18.0); Mean Corpuscular HGB CONC 36.8 g/dL (32.0-36.0); Mean Corpuscular Hemoglobin 33.7 pg (27.0-31.0); Mean Corpuscular Volume 91.7 fL (78.0-98.0); Mean Platelet Volume 11.1 fL (7.4-10.4); Platelet Count 40 thou/uL (130-400); Red Blood Cell (RBC) Count 3.31 mill/uL (4.70-6.10); White Blood Cell (WBC) Count 5.8 thou/uL (4.8-10.8)
[2019-10-25 03:45] LABS: ALT (SGPT) 23 U/L (8-55); AST (SGOT) 27 U/L (5-34); Alkaline Phosphatase 69 U/L (40-110); Anion Gap 16 mmol/L (10-20); BUN (Urea Nitrogen) 112 mg/dL (8.4-25.7); Bilirubin, Total 4.5 mg/dL (0.2-1.2); Calc. Creatinine Clearance 0 mL/min (70-130); Calcium 9.7 mg/dL (7.8-10.44); Carbon Dioxide 25 mmol/L (23-31); Chloride 99 mmol/L (98-107); Estimated GFR-MDRD 38; Globulin 3.4 g/dL (2.4-3.5); Potassium 3.8 mmol/L (3.5-5.1); Protein, Total 7.4 g/dL (5.8-8.1); Sodium 136 mmol/L (136-145)
[2019-10-25 03:55] LABS: Glucose 55 mg/dL (80-115)
[2019-10-25] MEDS: Lactulose 10 GM/15 ML Oral Solution PR SCH ×8 (04:00→16:29)
[2019-10-25] MEDS ORDERED: Dextrose 50% Abboject 50 ML SYRINGE ONE (04:02)
[2019-10-25 04:12] LABS: Lactic Acid 1.6 mmol/L (0.5-2.2)
[2019-10-25 04:14] LABS: Bacteria/HPF None Seen HPF (None Seen); Bilirubin Negative (Negative); Blood, Urine 1+ (Negative); Clarity Clear (Clear); Glucose, Urine (Dipstick) Normal (Negative); Leukocyte Negative Leu/uL (Negative); Nitrite Negative (Negative); Protein, Urine (Dipstick) 30 mg/dL (Neg-Trace); Squamous Epithelial None Seen HPF (0-3); Urobilinogen Normal mg/dL (Less than 2); WBC/HPF 0-3 HPF (0-3)
[2019-10-25] MEDS ORDERED: Dextrose 50% Abboject 50 ML SYRINGE SLOW IVP PRN (04:23)
[2019-10-25] MEDS ORDERED: HumaLOG 300 UNITS/3 ML VIAL SC PRN (04:23)
[2019-10-25] MEDS ORDERED: Dextrose 5% in Water 1,000 ML IV PRN (04:23)
[2019-10-25 04:26] LABS: Actual Bicarbonate (HCO3a) 24.1 mEq/L (22-28); Analyzer IN Cardio ER; Base Excess (BEa) 0.5 mEq/L (-2.0 to +3.0); CO2 Tension 35.2 mmHg (35.0-45.0); Calcium, Ionized 1.16 mmol/L (1.12-1.30); Carboxyhemoglobin (COHb) 0.1 gm% (0.0-3.0); Hemoglobin (Hb) 11.4 g/dL (14.0-18.0); O2 Tension (PaO2) 100.2 mmHg (> 80.0); Potassium - ABG Lab 3.78 mmol/L (3.70-5.30); pH, Arterial 7.45 (7.35-7.45)
[2019-10-25 04:27] LABS: Puncture Site RBA
--- NOTE | 2019-10-25 06:01 | PDOC.FM ---
- Subjective Subjective: No overnight events. Still not responding but does groan when turning him. He opens one eye to voice. 4 BMs overnight. Withdraws to pain but not following any simple commands at this point. No family present in the room. - Objective MAR Reviewed: Yes Result Diagrams: 10/25/19 03:10 10/25/19 03:10 Phys Exam - Physical Examination Constitutional: NAD Dry MM. Respiratory: no wheezing, clear to auscultation bilateral Cardiovascular: RRR Gastrointestinal: soft, non-tender Musculoskeletal: no edema Neurological: moves all 4 limbs Deviation from normal: Obtunded Deviation from normal: Skin tenting Dx/Plan - Plan Plan: Hepatic Encephalopathy - Also mild dehydration. - CT head: no acute findings - Ammonia: 117, Previous level: 81 - Titrate Lactulose to 3 stools per day - Holding Methadone today. Could be contributing at pt has admitted in the past to taking more than prescribed. Also given Ativan in ED. - Initially elevated LA: 4.3-> 2 ANJEL on CKD 3, improving - NS @75 ml/h - Continue to monitor Hx SVT - RRR - Saw by cards last admission and was candidate for ablation but wanted time to think about it - Brother says they were to f/u with Dr Richardson outpt 11/10/19 DM II with hypoglycemia - Holding home Insulin and Metformin until BG rises - Q1H Accuchecks due to episode of hypoglycemia - Hypoglycemic protocol and SSI once indicated Chronic Thrombocytopenia - Plts 40. Continue to monitor. HFpEF - Last echo 10/12 - Strict I&Os, daily wt Cirrhosis 2/2 Hep C - Continue home medications - MELD: 22 (19.5%). Child-Polanco B Methadone Use for Opioid dependence - Holding now for Encephalopathy HTN Code Status: Full Lines: Peripheral, NS @75 DVT PPx: SCDs GI ppx: None Addendum - Attending - Attending Attestation Date/Time: 10/25/19 1007 I personally evaluated the patient and discussed the management with Dr. Souza. I agree with the History, Examination, Assessment and Plan documented above with any addition or exceptions noted below. Patient here with encephalopathy suspected 2/2 med noncompliance. He is having lactulose administered CO with increased BMs. Some improvement in mentation but overall somnolent. Will need discussion with family about his ability to care for himself going forward. Consider wean from Methodone as it can also lead to this similar picture. Continue home meds. Monitor renal function.
--- NOTE | 2019-10-25 08:45 | RAD ---
PORTABLE CHEST ONE VIEW: 10/24/2019 11:57 p.m. HISTORY: Altered mental status. COMPARISON: 10/21/2019 FINDINGS: The heart size is normal. The aorta is tortuous. There is evidence of old granulomatous disease. The lungs are well expanded without focal areas of consolidation, pneumothoraces, ronda pulmonary edema o r pleural effusions. POS: [facility]
[2019-10-25] MEDS ORDERED: Sodium Chloride 0.9% 500 ML IV SCH ×2 (09:00→11:00)
[2019-10-25] MEDS: Dextrose 5 % And 0.9 % NaCl 1,000 ML IV SCH (14:18)
--- NOTE | 2019-10-25 14:20 | RAD ---
XR Abdomen 1 View/KUB History: NG tube placement Comparison: None. Findings: Enteric tube is in place with tip in gastric body. The side port is near the GE junction. Impression: Enteric tube tip projecting over the gastric body with the side port at the GE junction. Recommend advancing 3 to 4 cm.
--- NOTE | 2019-10-25 22:09 | RAD ---
KUB: 10/25/19 HISTORY: Evaluate nasogastric tube. FINDINGS: There is a nasogastric tube in place, curling in the epigastric region, overlying the region of the g astric body/fundus. This is similar when compared to prior KUB performed earlier on 10/25/19. Assess ment is limited secondary to rotation to the right. IMPRESSION: Nasogastric tube as above. POS: [facility]
[2019-10-25] MEDS: Propranolol 10 MG TAB PO SCH (22:22)
[2019-10-25] MEDS: Spironolactone 100 MG TAB PO SCH (22:22)
[2019-10-26] MEDS: Dextrose 5 % And 0.9 % NaCl 1,000 ML IV SCH (00:37)
--- NOTE | 2019-10-26 06:45 | PDOC.FM ---
- Subjective Subjective: Pulled NG tube out overnight. Now able to carry on conversation. Would like to eat. His BG has been stable overnight. Denies pain. Feels back to his usual mental state. Reports he lives at home and family helps him with medications. He is able to do most other things by himself such as prepares his own meals. Reports he had missed a couple days of his medications prior to admission. - Objective MAR Reviewed: Yes Vital Signs & Weight: Vital Signs (12 hours) Temp Pulse Ox 10/26/19 03:00 98.2 F 10/25/19 23:00 97.8 F 10/25/19 20:00 100 10/25/19 19:44 98.3 F Weight Weight 59.148 kg Most Recent Monitor Data Heart Rate from ECG 72 NIBP 136/56 NIBP BP-Mean 82 Respiration from ECG 12 SpO2 100 I&O: 10/24/19 10/25/19 10/26/19 06:59 06:59 06:59 Intake Total 2674 Output Total 3000 Balance -326 Result Diagrams: 10/25/19 03:10 10/26/19 03:45 Phys Exam - Physical Examination Constitutional: NAD HEENT: moist MMs Neck: supple Respiratory: no wheezing, clear to auscultation bilateral Cardiovascular: RRR, no significant murmur Gastrointestinal: soft, non-tender, positive bowel sounds Musculoskeletal: no edema, pulses present Neurological: moves all 4 limbs Psychiatric: normal affect Skin: normal turgor Dx/Plan - Plan Plan: Hepatic Encephalopathy, improving - CT head: no acute findings - Ammonia: 117-> 40, Previous level: 81 - Resume home lactulose dosing - Holding Methadone. Could be contributing at pt has admitted in the past to taking more than prescribed. Also given Ativan in ED. - CM consulted to assist with dispo planning. Pt is at high risk of readmission ANJEL on CKD 3 - Continue to monitor Hx SVT - RRR - Saw by cards last admission and was candidate for ablation but wanted time to think about it - Brother says they were to f/u with Dr Richardson outpt 11/10/19 DM II with hypoglycemia - Holding home Insulin and Metformin until BG rises - Stop D5NS, start CC diet with ACHS accuchecks. - Hypoglycemic protocol and SSI once indicated Chronic Thrombocytopenia - Plts 40 HFpEF - Last echo 11/27 - Strict I&Os, daily wt Cirrhosis 2/2 Hep C - Continue home medications - MELD: 22 (19.5%). Child-Polanco B Methadone Use for Opioid dependence - Holding now for Encephalopathy HTN Code Status: Full Lines: Peripheral, NS @75 DVT PPx: SCDs GI ppx: Protonix Addendum - Attending - Attending Attestation Date/Time: 10/26/19 1019 I personally evaluated the patient and discussed the management with Dr. Souza. I agree with the History, Examination, Assessment and Plan documented above with any addition or exceptions noted below. Patient significantly improved. Encephalopathy resolved with resumption of meds. Ammonia level downtrending well. Will discuss with patient the importance of his meds and that by not taking them he is setting himself up for recurrent admissions. Will discuss case with his family. Stable for transfer to medical unit.
[2019-10-26] MEDS ORDERED: Dextrose 5% in Water 1,000 ML IV PRN (07:03)
[2019-10-26 08:39] LABS: Anion Gap 17 mmol/L (10-20); BUN (Urea Nitrogen) 75 mg/dL (8.4-25.7); Calc. Creatinine Clearance 46 mL/min (70-130); Carbon Dioxide 19 mmol/L (23-31); Chloride 108 mmol/L (98-107); Estimated GFR-MDRD 55; Glucose 144 mg/dL (80-115); Potassium 3.8 mmol/L (3.5-5.1); Sodium 140 mmol/L (136-145)
[2019-10-26] MEDS: Spironolactone 100 MG TAB PO SCH ×2 (11:00→20:08)
[2019-10-26] MEDS: HumaLOG 300 UNITS/3 ML VIAL SC PRN ×3 (14:26→20:40)
[2019-10-26] MEDS ORDERED: METHadone HCl 10 MG TAB PO SCH (16:00)
[2019-10-26] MEDS: METHadone HCl 10 MG TAB PO SCH (20:08)
[2019-10-26] MEDS: Propranolol 10 MG TAB PO SCH (20:09)
--- NOTE | 2019-10-27 06:49 | PDOC.FM ---
- Subjective Subjective: NAEO. Patient resting comfortably in bed. Concerned that he had not yet received his methadone. The patient otherwise has no complaints or concerns. Tolerating PO. Voiding normally. - Objective MAR Reviewed: Yes Vital Signs & Weight: Vital Signs (12 hours) Temp Pulse Resp BP Pulse Ox 10/27/19 03:58 98.1 F 78 20 143/72 H 100 10/26/19 23:18 98.2 F 75 20 145/73 H 99 10/26/19 20:15 100 10/26/19 19:26 98.6 F 91 20 137/70 100 Weight Weight 59.148 kg Most Recent Monitor Data Heart Rate from ECG 77 NIBP 157/69 NIBP BP-Mean 98 Respiration from ECG 14 SpO2 100 I&O: 10/25/19 10/26/19 10/27/19 06:59 06:59 06:59 Intake Total 2674 790 Output Total 3700 750 Balance -1026 40 Result Diagrams: 10/27/19 07:15 10/27/19 07:15 Phys Exam - Physical Examination Constitutional: NAD HEENT: PERRLA, moist MMs, sclera anicteric Neck: supple Respiratory: clear to auscultation bilateral Cardiovascular: RRR, no significant murmur, no rub Gastrointestinal: soft, non-tender, no distention, positive bowel sounds Musculoskeletal: no edema, pulses present Neurological: non-focal, moves all 4 limbs Psychiatric: normal affect Skin: no rash, normal turgor, cap refill <2 seconds Dx/Plan (1) Acute encephalopathy Code(s): G93.40 - ENCEPHALOPATHY, UNSPECIFIED Status: Acute (2) SVT (supraventricular tachycardia) Code(s): I47.1 - SUPRAVENTRICULAR TACHYCARDIA Status: Acute (3) Amputated toe Code(s): Z89.429 - ACQUIRED ABSENCE OF OTHER TOE(S), UNSPECIFIED SIDE Status: Chronic (4) Esophageal varices in cirrhosis Code(s): K74.60 - UNSPECIFIED CIRRHOSIS OF LIVER; I85.10 - SECONDARY ESOPHAGEAL VARICES WITHOUT BLEEDING Status: Chronic (5) Hepatitis, chronic Code(s): K73.9 - CHRONIC HEPATITIS, UNSPECIFIED Status: Chronic (6) Hypertension associated with stage 3 chronic kidney disease due to type 2 diabetes mellitus Code(s): E11.22 - TYPE 2 DIABETES MELLITUS W DIABETIC CHRONIC KIDNEY DISEASE; I12.9 - HYPERTENSIVE CHRONIC KIDNEY DISEASE W STG 1-4/UNSP CHR KDNY; N18.3 - CHRONIC KIDNEY DISEASE, STAGE 3 (MODERATE) Status: Chronic (7) Polysubstance abuse Code(s): F19.10 - OTHER PSYCHOACTIVE SUBSTANCE ABUSE, UNCOMPLICATED Status: Chronic - Plan Plan: #Hepatic Encephalopathy, improving Ammonia: 117-> 40, Previous level: 81. CT head: no acute findings - Resume home lactulose dosing. Titrate to 3 BMs/day. - Will restart rifaximin - CM consulted to assist with dispo planning. Pt is at high risk of readmission. #ANJEL on CKD 3, resolved - Cr initially 2.1 -> 1.29. Continue to monitor #Hx SVT - Saw by cards last admission and was candidate for ablation but wanted time to think about it. Brother says they are to f/u with Dr Richardson outpt 11/10/19 - On BB qHS #DM II with hypoglycemia - CC diet with ACHS accuchecks. - Mod SS #Chronic Thrombocytopenia - Plts 40 -> 25. Patient has hx of thrombocytopenia. Will continue to monitor. #HFpEF - Last echo 10/12 - Will restart lasix - Strict I&Os, daily wt #Cirrhosis 2/2 Hep C - Continue home medications - MELD: 17 (3-4% 90 day mortality risk) #Methadone Use for Opioid dependence - Restarted methadone at 10mg TID. Patient will be following up outpatient. Trying to ween off of this. #HTN - BP at goal Social - patient high risk of re-admission. Working with CM to see if patient could be candidate for placement. Attempted to call brother who did not answer but will try again later today. Code Status: Full DVT PPx: SCDs GI ppx: Protonix Dispo: pending clinical course/placement. Case discussed with Dr. Ortez. Addendum - Attending - Attending Attestation Date/Time: 10/27/19 1014 I personally evaluated the patient and discussed the management with Dr. Proctor. I agree with the History, Examination, Assessment and Plan documented above with any addition or exceptions noted below. Patient overall stable. His mentation seems to be still somewhat slowed this morning but no confusion. His Plt count dropped but this is chronic and no evidence of bleeding. Continue to monitor. Will speak with family today about his ability to care for himself at home as he has had recurrent admissions due to med noncompliance as he believes he can continue to care for himself. Nearing stability for discharge.
[2019-10-27 07:34] LABS: #Eosinphils 0.1 thou/uL (0.0-0.7); #Lymphocytes 0.6 thou/uL (1.20-3.40); #Monocytes 0.4 thou/uL (0.11-0.59); #Neutrophils 1.6 thou/uL (1.40-6.50); %Eosinophils 4.2 % (0.0-10.0); %Lymphocytes 21.5 % (21.0-51.0); %Monocytes 14.2 % (0.0-10.0); %Neutrophils 60.1 % (42.0-75.0); Hemoglobin 9.6 g/dL (14.0-18.0); Mean Corpuscular HGB CONC 36.2 g/dL (32.0-36.0); Mean Corpuscular Hemoglobin 34.6 pg (27.0-31.0); Mean Corpuscular Volume 95.4 fL (78.0-98.0); Mean Platelet Volume 11.8 fL (7.4-10.4); Platelet Count 25 thou/uL (130-400); RBC Distribution Width 16.2 % (11.5-14.5); Red Blood Cell (RBC) Count 2.79 mill/uL (4.70-6.10); White Blood Cell (WBC) Count 2.6 thou/uL (4.8-10.8)
[2019-10-27 07:45] LABS: ALT (SGPT) 23 U/L (8-55); AST (SGOT) 26 U/L (5-34); Albumin 3.6 g/dL (3.4-4.8); Alkaline Phosphatase 63 U/L (40-110); Anion Gap 13 mmol/L (10-20); BUN (Urea Nitrogen) 55 mg/dL (8.4-25.7); Bilirubin, Total 4.1 mg/dL (0.2-1.2); Calc. Creatinine Clearance 47 mL/min (70-130); Calcium 9.2 mg/dL (7.8-10.44); Carbon Dioxide 26 mmol/L (23-31); Chloride 107 mmol/L (98-107); Estimated GFR-MDRD 56; Globulin 3.1 g/dL (2.4-3.5); Glucose 113 mg/dL (80-115); Potassium 4.6 mmol/L (3.5-5.1); Protein, Total 6.7 g/dL (5.8-8.1); Sodium 141 mmol/L (136-145)
[2019-10-27] MEDS: Insulin Glargine 40 UNITS in Pre-Filled Syringe 1 EACH SC SCH (08:31)
[2019-10-27] MEDS: METHadone HCl 10 MG TAB PO SCH ×3 (08:32→20:21)
[2019-10-27] MEDS: Spironolactone 100 MG TAB PO SCH ×2 (08:38→20:21)
[2019-10-27] MEDS ORDERED: Propranolol 10 MG TAB PO SCH (09:00)
[2019-10-27] MEDS ORDERED: METHadone HCl 10 MG TAB PO SCH (09:00)
[2019-10-27] MEDS: Rifaximin 550 MG TAB PO SCH ×2 (09:23→20:21)
[2019-10-27] MEDS: Furosemide 80 MG TAB PO SCH ×2 (09:24→20:21)
[2019-10-27] MEDS: HumaLOG 300 UNITS/3 ML VIAL SC PRN ×2 (16:23→20:26)
[2019-10-27] MEDS: Propranolol 40 MG TAB PO SCH (21:13)
[2019-10-28] MEDS: HumaLOG 300 UNITS/3 ML VIAL SC PRN ×4 (06:07→21:11)
--- NOTE | 2019-10-28 06:57 | PDOC.FM ---
- Subjective Subjective: NAEO. Patient resting comfortably in bed. No complaints or concerns. Tolerating PO. Patient more alert per nursing. Able to get up to his bedside commode. - Objective MAR Reviewed: Yes Vital Signs & Weight: Vital Signs (12 hours) Temp Pulse Resp BP Pulse Ox 10/27/19 20:19 98.1 F 88 18 132/73 100 Weight Weight 59.148 kg Most Recent Monitor Data Heart Rate from ECG 77 NIBP 157/69 NIBP BP-Mean 98 Respiration from ECG 14 SpO2 100 I&O: 10/26/19 10/27/19 10/28/19 06:59 06:59 06:59 Intake Total 2674 790 2000 Output Total 3700 750 950 Balance -1026 40 1050 Result Diagrams: 10/28/19 09:34 10/28/19 09:34 Phys Exam - Physical Examination Constitutional: NAD frail HEENT: PERRLA, moist MMs, sclera anicteric Neck: supple, full ROM Respiratory: clear to auscultation bilateral Cardiovascular: RRR Gastrointestinal: soft, non-tender, no distention, positive bowel sounds Neurological: non-focal, moves all 4 limbs Psychiatric: normal affect Deviation from normal: axox2 to person and place Skin: no rash, normal turgor, cap refill <2 seconds Dx/Plan (1) Acute encephalopathy Code(s): G93.40 - ENCEPHALOPATHY, UNSPECIFIED Status: Acute (2) SVT (supraventricular tachycardia) Code(s): I47.1 - SUPRAVENTRICULAR TACHYCARDIA Status: Acute (3) Amputated toe Code(s): Z89.429 - ACQUIRED ABSENCE OF OTHER TOE(S), UNSPECIFIED SIDE Status: Chronic (4) Esophageal varices in cirrhosis Code(s): K74.60 - UNSPECIFIED CIRRHOSIS OF LIVER; I85.10 - SECONDARY ESOPHAGEAL VARICES WITHOUT BLEEDING Status: Chronic (5) Hepatitis, chronic Code(s): K73.9 - CHRONIC HEPATITIS, UNSPECIFIED Status: Chronic (6) Hypertension associated with stage 3 chronic kidney disease due to type 2 diabetes mellitus Code(s): E11.22 - TYPE 2 DIABETES MELLITUS W DIABETIC CHRONIC KIDNEY DISEASE; I12.9 - HYPERTENSIVE CHRONIC KIDNEY DISEASE W STG 1-4/UNSP CHR KDNY; N18.3 - CHRONIC KIDNEY DISEASE, STAGE 3 (MODERATE) Status: Chronic (7) Polysubstance abuse Code(s): F19.10 - OTHER PSYCHOACTIVE SUBSTANCE ABUSE, UNCOMPLICATED Status: Chronic - Plan Plan: #Hepatic Encephalopathy, improving Ammonia: 117-> 40, Previous level: 81. CT head: no acute findings. - Resume home lactulose dosing. Titrate to 3 BMs/day. - Home rifaximin - CM consulted to assist with dispo planning. HH vs placement. Pt is at high risk of readmission. #ANJEL on CKD 3, resolved - Cr initially 2.1 -> 1.29. Continue to monitor #Hx SVT - Saw by cards last admission and was candidate for ablation but wanted time to think about it. Brother says they are to f/u with Dr Richardson outpt 11/10/19 - On BB qHS #DM II with hypoglycemia - CC diet with ACHS accuchecks. - Mod SS #Chronic Thrombocytopenia - Plts 40 -> 25. Patient has hx of thrombocytopenia. Will continue to monitor. #HFpEF - Last echo 10/12 - Will restart lasix - Strict I&Os, daily wt #Cirrhosis 2/2 Hep C - Continue home medications - MELD: 17 (3-4% 90 day mortality risk) #Methadone Use for Opioid dependence - Restarted methadone at 10mg TID. Patient will be following up outpatient. Trying to ween off of this. #HTN - BP at goal Social - patient high risk of re-admission. Working with CM to see if patient could be candidate for placement. Attempted to call brother who did not answer but will try again later today. Code Status: Full DVT PPx: SCDs GI ppx: Protonix Dispo: pending clinical course/placement. Case discussed with Dr. Ortez. Addendum - Attending - Attending Attestation Date/Time: 10/28/19 0098 I personally evaluated the patient and discussed the management with Dr. Proctor. I agree with the History, Examination, Assessment and Plan documented above with any addition or exceptions noted below. Patient overall stable, encephalopathy improved and mentation somewhat better than yesterday. Awaiting visitation by brother to see if he is about his baseline. Continue therapy. We are awaiting a repeat CBC to see if his Platelet count truly is as low as it records as this would be a sudden and unexpected drop. He is otherwise doing well and nearing point of stability for discharge if platelet count is not what it currently appears.
[2019-10-28] MEDS: Rifaximin 550 MG TAB PO SCH ×2 (08:31→21:11)
[2019-10-28] MEDS: METHadone HCl 10 MG TAB PO SCH ×3 (08:31→21:10)
[2019-10-28] MEDS: Spironolactone 100 MG TAB PO SCH (08:32)
[2019-10-28] MEDS: Furosemide 80 MG TAB PO SCH ×2 (08:32→21:11)
[2019-10-28] MEDS: Insulin Glargine 40 UNITS in Pre-Filled Syringe 1 EACH SC SCH (08:34)
[2019-10-28 10:02] LABS: ALT (SGPT) 25 U/L (8-55); AST (SGOT) 25 U/L (5-34); Albumin 3.6 g/dL (3.4-4.8); Alkaline Phosphatase 69 U/L (40-110); Anion Gap 15 mmol/L (10-20); BUN (Urea Nitrogen) 62 mg/dL (8.4-25.7); Bilirubin, Total 3.4 mg/dL (0.2-1.2); Calc. Creatinine Clearance 39 mL/min (70-130); Carbon Dioxide 25 mmol/L (23-31); Chloride 99 mmol/L (98-107); Estimated GFR-MDRD 45; Globulin 3.2 g/dL (2.4-3.5); Glucose 288 mg/dL (80-115); Potassium 4.8 mmol/L (3.5-5.1); Protein, Total 6.8 g/dL (5.8-8.1); Sodium 134 mmol/L (136-145)
[2019-10-28 10:16] LABS: Hemoglobin 9.9 g/dL (14.0-18.0); Mean Corpuscular HGB CONC 36.8 g/dL (32.0-36.0); Mean Corpuscular Hemoglobin 34.7 pg (27.0-31.0); Mean Corpuscular Volume 94.2 fL (78.0-98.0); Platelet Count Less than 2 thou/uL (130-400); RBC Distribution Width 16.3 % (11.5-14.5); Red Blood Cell (RBC) Count 2.85 mill/uL (4.70-6.10); White Blood Cell (WBC) Count 2.4 thou/uL (4.8-10.8)
[2019-10-28 10:20] LABS: Band 6 % (5-11); Eosinophils 4 % (0-10); Lymphocytes 26 % (21-51); MDiff Complete? YES; Monocytes 7 % (0-10); Neutrophil 57 % (42-75); Ovalocytes SLIGHT = 2-5 cells (100X) (0-1/hpf); Platelet Morphology Comment Appears Decreased; Polychromasia SLIGHT = 2-3 cells (100X) (0-2/hpf)
[2019-10-28] MEDS ORDERED: Insulin Glargine 10 UNITS in Pre-Filled Syringe 1 EACH SC SCH (10:30)
[2019-10-28] MEDS: Insulin Glargine 50 UNITS in Pre-Filled Syringe 1 EACH SC SCH (10:32)
[2019-10-28] MEDS ORDERED: Spironolactone 100 MG TAB PO SCH (11:00)
[2019-10-28] MEDS: Polyethylene Glycol 3350 17 GM Packet PO SCH (11:23)
[2019-10-28 11:30] LABS: Platelet Count 29 thou/uL (130-400)
[2019-10-28] MEDS: Propranolol 40 MG TAB PO SCH (21:10)
[2019-10-29] MEDS: HumaLOG 300 UNITS/3 ML VIAL SC PRN ×4 (05:47→21:27)
[2019-10-29 07:27] LABS: #Eosinphils 0.3 thou/uL (0.0-0.7); #Monocytes 0.6 thou/uL (0.11-0.59); #Neutrophils 2.9 thou/uL (1.40-6.50); %Basophils 0.3 % (0.0-1.0); %Eosinophils 6.8 % (0.0-10.0); %Neutrophils 58.8 % (42.0-75.0); Hemoglobin 10.8 g/dL (14.0-18.0); Mean Corpuscular HGB CONC 36.9 g/dL (32.0-36.0); Mean Corpuscular Hemoglobin 35.2 pg (27.0-31.0); Mean Corpuscular Volume 95.4 fL (78.0-98.0); Mean Platelet Volume 11.2 fL (7.4-10.4); Platelet Count 39 thou/uL (130-400); RBC Distribution Width 16.1 % (11.5-14.5); Red Blood Cell (RBC) Count 3.07 mill/uL (4.70-6.10); White Blood Cell (WBC) Count 4.9 thou/uL (4.8-10.8)
[2019-10-29 07:32] LABS: ALT (SGPT) 23 U/L (8-55); AST (SGOT) 25 U/L (5-34); Albumin 3.7 g/dL (3.4-4.8); Alkaline Phosphatase 71 U/L (40-110); Anion Gap 16 mmol/L (10-20); BUN (Urea Nitrogen) 68 mg/dL (8.4-25.7); Bilirubin, Total 4.5 mg/dL (0.2-1.2); Calc. Creatinine Clearance 38 mL/min (70-130); Carbon Dioxide 23 mmol/L (23-31); Chloride 100 mmol/L (98-107); Estimated GFR-MDRD 43; Globulin 3.4 g/dL (2.4-3.5); Glucose 282 mg/dL (80-115); Potassium 4.5 mmol/L (3.5-5.1); Protein, Total 7.1 g/dL (5.8-8.1); Sodium 134 mmol/L (136-145)
--- NOTE | 2019-10-29 07:35 | PDOC.FM ---
- Subjective Subjective: Patient is doing well this am. Answering questions appropriately. Reports only one stool yesterday. Voiding and eating normally. Nursing staff without concerns. FABRICE. - Objective MAR Reviewed: Yes Vital Signs & Weight: Weight Admit Weight 60.509 kg Weight 59.148 kg Most Recent Monitor Data Heart Rate from ECG 77 NIBP 157/69 NIBP BP-Mean 98 Respiration from ECG 14 SpO2 100 I&O: 10/28/19 10/29/19 10/30/19 06:59 06:59 06:59 Intake Total 2000 2260 Output Total 950 800 Balance 1050 1460 Result Diagrams: 11/07/19 03:48 11/07/19 03:48 Phys Exam - Physical Examination Constitutional: NAD HEENT: moist MMs Respiratory: no wheezing, no rales, clear to auscultation bilateral Cardiovascular: RRR, no significant murmur Gastrointestinal: soft, non-tender mild distension trace LE edema Neurological: moves all 4 limbs Psychiatric: normal affect Dx/Plan (1) Acute encephalopathy Code(s): G93.40 - ENCEPHALOPATHY, UNSPECIFIED Status: Acute (2) Acute worsening of stage 3 chronic kidney disease Code(s): N18.3 - CHRONIC KIDNEY DISEASE, STAGE 3 (MODERATE) Status: Acute (3) SVT (supraventricular tachycardia) Code(s): I47.1 - SUPRAVENTRICULAR TACHYCARDIA Status: Resolved (4) Thrombocytopenia Code(s): D69.6 - THROMBOCYTOPENIA, UNSPECIFIED Status: Acute (5) Cirrhosis Code(s): K74.60 - UNSPECIFIED CIRRHOSIS OF LIVER Status: Chronic Qualifiers: Ascites presence: without ascites (6) Hypertension associated with stage 3 chronic kidney disease due to type 2 diabetes mellitus Code(s): E11.22 - TYPE 2 DIABETES MELLITUS W DIABETIC CHRONIC KIDNEY DISEASE; I12.9 - HYPERTENSIVE CHRONIC KIDNEY DISEASE W STG 1-4/UNSP CHR KDNY; N18.3 - CHRONIC KIDNEY DISEASE, STAGE 3 (MODERATE) Status: Chronic (7) Insulin dependent diabetes mellitus Code(s): E11.9 - TYPE 2 DIABETES MELLITUS WITHOUT COMPLICATIONS; Z79.4 - SHELTER (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 CT head: no acute findings. - Resume home lactulose dosing. Titrate to 3 BMs/day. Discussed importance of med compliance. - Home rifaximin - CM consulted to assist with dispo planning. HH vs placement. Pt is at high risk of readmission. #ANJEL on CKD 3, resolved - Cr initially 2.1 -> 1.29. Continue to monitor #Hx SVT - Seen by cards last admission and was candidate for ablation but wanted time to think about it. Brother says they are to f/u with Dr Richardson outpt 11/10/19 - On BB qHS #DM II with hypoglycemia - CC diet with ACHS accuchecks. - Mod SS #Chronic Thrombocytopenia - improving, has hx of thrombocytopenia, continue to monitor #HFpEF - Last echo 10/12 - Continue lasix - Strict I&Os, daily wt #Cirrhosis 2/2 Hep C - Continue home medications - MELD: 17 (3-4% 90 day mortality risk) #Methadone Use for Opioid dependence - Restarted methadone at 10mg TID. Patient will be following up outpatient. Trying to ween off of this. #HTN - BP at goal Social - patient high risk of re-admission. Working with CM to see if patient could be candidate for placement. Attempted to call brother who did not answer but will try again later today. Code Status: Full DVT PPx: SCDs GI ppx: Protonix Dispo: pending clinical course/placement.
[2019-10-29] MEDS: Furosemide 80 MG TAB PO SCH ×2 (08:13→21:26)
[2019-10-29] MEDS: METHadone HCl 10 MG TAB PO SCH ×3 (08:13→21:28)
[2019-10-29] MEDS: Spironolactone 100 MG TAB PO SCH (08:13)
[2019-10-29] MEDS: Rifaximin 550 MG TAB PO SCH ×2 (08:13→21:26)
[2019-10-29] MEDS: Insulin Glargine 50 UNITS in Pre-Filled Syringe 1 EACH SC SCH (08:14)
[2019-10-29] MEDS: Polyethylene Glycol 3350 17 GM Packet PO SCH (08:17)
--- NOTE | 2019-10-29 09:33 | PDOC.EVN ---
Event Note - Event Note Event Note: 64yo M with Hep C Cirrhosis here s/p hepatic encephalopathy, improving. Discussed importance of Lactulose compliance. Will work on discharge planning. Agree with Dr. Pelayo's assessment and plan. Written by Dr. Herrera Arzate
[2019-10-29] MEDS: Propranolol 40 MG TAB PO SCH (21:26)
[2019-10-30] MEDS: HumaLOG 300 UNITS/3 ML VIAL SC PRN ×4 (05:29→20:32)
--- NOTE | 2019-10-30 06:54 | PDOC.FM ---
- Subjective Subjective: Patient is very tired this morning and is not able to readily answer questions directly. He has no complaints at this time and nursing staff reports no concerns. - Objective MAR Reviewed: Yes Vital Signs & Weight: Vital Signs (12 hours) Temp Pulse Resp BP Pulse Ox 10/29/19 19:28 98.6 F 79 18 113/55 L 99 Weight Admit Weight 60.509 kg Weight 59.148 kg Most Recent Monitor Data Heart Rate from ECG 77 NIBP 157/69 NIBP BP-Mean 98 Respiration from ECG 14 SpO2 100 I&O: 10/28/19 10/29/19 10/30/19 06:59 06:59 06:59 Intake Total 19990 260 Output Total 950 800 775 Balance 1050 1460 -515 Result Diagrams: 10/29/19 06:44 10/29/19 06:44 Phys Exam - Physical Examination Constitutional: NAD Respiratory: no wheezing, no rales, clear to auscultation bilateral Cardiovascular: RRR, no significant murmur Gastrointestinal: soft, non-tender Neurological: moves all 4 limbs Deviation from normal: AOx1, appears confused Dx/Plan (1) Acute encephalopathy Code(s): G93.40 - ENCEPHALOPATHY, UNSPECIFIED Status: Acute (2) Hepatic cirrhosis due to chronic hepatitis C infection Code(s): B18.2 - CHRONIC VIRAL HEPATITIS C; K74.60 - UNSPECIFIED CIRRHOSIS OF LIVER Status: Chronic (3) Esophageal varices in cirrhosis Code(s): K74.60 - UNSPECIFIED CIRRHOSIS OF LIVER; I85.10 - SECONDARY ESOPHAGEAL VARICES WITHOUT BLEEDING Status: Chronic (4) Hypertension associated with stage 3 chronic kidney disease due to type 2 diabetes mellitus Code(s): E11.22 - TYPE 2 DIABETES MELLITUS W DIABETIC CHRONIC KIDNEY DISEASE; I12.9 - HYPERTENSIVE CHRONIC KIDNEY DISEASE W STG 1-4/UNSP CHR KDNY; N18.3 - CHRONIC KIDNEY DISEASE, STAGE 3 (MODERATE) Status: Chronic (5) Insulin dependent diabetes mellitus Code(s): E11.9 - TYPE 2 DIABETES MELLITUS WITHOUT COMPLICATIONS; 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 - Will give now dose of lactulose and increase frequency. - Home rifaximin - CM consulted to assist with dispo planning. HH vs placement. Pt is at high risk of readmission. #ANJEL on CKD 3, resolved - Cr initially 2.1 -> 1.29. Continue to monitor #Hx SVT - Seen by cards last admission and was candidate for ablation but wanted time to think about it. Brother says they are to f/u with Dr Richardson outpt 11/10/19 - On BB qHS #DM II with hypoglycemia - CC diet with ACHS accuchecks. - Mod SS #Chronic Thrombocytopenia, improving. - Likely 2/2 cirrhosis. Will continue to monitor. #HFpEF - Last echo 10/12 - Continue home lasix - Strict I&Os, daily wt #Cirrhosis 2/2 Hep C - Continue home medications - MELD: 17 (3-4% 90 day mortality risk) #Methadone Use for Opioid dependence - Continuing home dose methadone at 10mg TID. Patient will be following up outpatient. Trying to ween off of this. #HTN - BP at goal Social - patient high risk of re-admission. Working with CM to see if patient could be candidate for placement. PT recommending inpatient rehab. Code Status: Full DVT PPx: SCDs GI ppx: Protonix Dispo: pending clinical course/placement. Case discussed with Dr. Arzate.
[2019-10-30] MEDS ORDERED: Insulin Glargine 60 UNITS in Pre-Filled Syringe 1 EACH SC SCH (09:00)
[2019-10-30] MEDS: Rifaximin 550 MG TAB PO SCH ×2 (09:01→20:31)
[2019-10-30] MEDS: METHadone HCl 10 MG TAB PO SCH ×3 (09:01→20:31)
[2019-10-30] MEDS: Furosemide 80 MG TAB PO SCH ×2 (09:02→20:31)
[2019-10-30] MEDS: Spironolactone 100 MG TAB PO SCH (09:02)
[2019-10-30] MEDS: Polyethylene Glycol 3350 17 GM Packet PO SCH (09:04)
--- NOTE | 2019-10-30 09:59 | PDOC.EVN ---
Event Note - Event Note Event Note: 64yo M with Hep C Cirrhosis here s/p hepatic encephalopathy. Cannot reliably answer questions this morning. Getting Lactulose BID. Will get ammonia. Discussed importance of Lactulose compliance. Consult for inpatient rehab placed, awaiting placement. Agree with Dr. Pelayo's assessment and plan. Written by Dr. Herrera Arzate
[2019-10-30] MEDS: Propranolol 40 MG TAB PO SCH (20:32)
--- NOTE | 2019-10-31 05:51 | PDOC.FM ---
- Subjective Subjective: Patient states he is feeling well today. Denies abdominal pain, or SOB. Patient reports mild right sided chest pain, that is TTP. Small bruise seen on chest. He is able to answer questions appropriately. States he had a BM this morning. Patient states his Hep C was treated in [place]. - Objective Vital Signs & Weight: Vital Signs (12 hours) Temp Pulse Resp BP Pulse Ox 10/30/19 19:07 98.3 F 71 19 117/66 99 Weight Admit Weight 60.509 kg Weight 59.148 kg Most Recent Monitor Data Heart Rate from ECG 77 NIBP 157/69 NIBP BP-Mean 98 Respiration from ECG 14 SpO2 100 I&O: 10/29/19 10/30/19 10/31/19 06:59 06:59 06:59 Intake Total 2260 260 130 Output Total 800 775 Balance 1460 -515 130 Result Diagrams: 10/29/19 06:44 10/29/19 06:44 Phys Exam - Physical Examination Constitutional: NAD Respiratory: no wheezing, clear to auscultation bilateral Cardiovascular: RRR, no significant murmur Mild TTP right side of chest, small bruise seen to right of sternum Gastrointestinal: soft, non-tender Musculoskeletal: no edema, pulses present Neurological: non-focal, moves all 4 limbs Psychiatric: normal affect, A&O x 3 Skin: no rash, cap refill <2 seconds Dx/Plan (1) Acute encephalopathy Code(s): G93.40 - ENCEPHALOPATHY, UNSPECIFIED Status: Acute (2) SVT (supraventricular tachycardia) Code(s): I47.1 - SUPRAVENTRICULAR TACHYCARDIA Status: Acute (3) Thrombocytopenia Code(s): D69.6 - THROMBOCYTOPENIA, UNSPECIFIED Status: Acute (4) Chronic back pain Code(s): M54.9 - DORSALGIA, UNSPECIFIED; G89.29 - OTHER CHRONIC PAIN Status: Chronic (5) Chronic kidney disease, stage 3 Status: Chronic (6) Cirrhosis Code(s): K74.60 - UNSPECIFIED CIRRHOSIS OF LIVER Status: Chronic Qualifiers: Ascites presence: without ascites (7) Hypertension associated with stage 3 chronic kidney disease due to type 2 diabetes mellitus Code(s): E11.22 - TYPE 2 DIABETES MELLITUS W DIABETIC CHRONIC KIDNEY DISEASE; I12.9 - HYPERTENSIVE CHRONIC KIDNEY DISEASE W STG 1-4/UNSP CHR KDNY; N18.3 - CHRONIC KIDNEY DISEASE, STAGE 3 (MODERATE) Status: Chronic (8) Insulin dependent diabetes mellitus Code(s): E11.9 - TYPE 2 DIABETES MELLITUS WITHOUT COMPLICATIONS; Z79.4 - RADIOLOGY PHYSICIAN ASSISTANT (CURRENT) USE OF INSULIN Status: Chronic (9) Methadone dependence Code(s): F11.20 - OPIOID DEPENDENCE, UNCOMPLICATED Status: Chronic (10) Polysubstance abuse Code(s): F19.10 - OTHER PSYCHOACTIVE SUBSTANCE ABUSE, UNCOMPLICATED Status: Chronic - Plan Plan: #Acute Hepatic Encephalopathy, improved Ammonia: 117 on admission, Previous level: 81. CT head: no acute findings. - Resume lactulose dosing. Titrate to 3 BMs/day. Patient had 1 BM yesterday. QID today. - Home rifaximin - CM consulted to assist with dispo planning. HH vs placement. Pt is at high risk of readmission. - AOx3 today #ANJEL on CKD 3, resolved - Continue to monitor #Hx SVT - Saw by cards last admission and was candidate for ablation but wanted time to think about it. Brother says they are to f/u with Dr Richardson outpt 11/10/19 - On BB qHS #DM II with hypoglycemia - CC diet with ACHS accuchecks. - Mod SSI #Chronic Thrombocytopenia - Plts 39 today. Patient has hx of thrombocytopenia. Will continue to monitor. 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 Patient will be following up outpatient. #HTN - BP at goal Social - patient high risk of re-admission. Working with CM to see if patient could be candidate for placement. Attempted to call brother who did not answer but will try again later today. Code Status: Full DVT PPx: SCDs GI ppx: Protonix Dispo: pending placement. Addendum - Attending - Attending Attestation Date/Time: 10/31/19 1023 I personally evaluated the patient and discussed the management with Dr. Huizar. I agree with the History, Examination, Assessment and Plan documented above with any addition or exceptions noted below. Mentation improved but not to baseline, waxing and waning. Lungs CTA. RRRR. Continue adjustment of lactulose and insulin to achieve 3 BM's/day and Glucose< 200. May need Hepatology consult if fails to return to baseline. May need transition to LTC.
[2019-10-31] MEDS: Spironolactone 100 MG TAB PO SCH (09:23)
[2019-10-31] MEDS: METHadone HCl 10 MG TAB PO SCH ×3 (09:25→20:27)
[2019-10-31] MEDS: Rifaximin 550 MG TAB PO SCH ×2 (09:25→20:26)
[2019-10-31] MEDS: Furosemide 80 MG TAB PO SCH ×2 (09:27→20:26)
[2019-10-31] MEDS: Polyethylene Glycol 3350 17 GM Packet PO SCH (09:27)
[2019-10-31] MEDS: Insulin Glargine 65 UNITS in Pre-Filled Syringe 1 EACH SC SCH ×2 (10:19→10:37)
[2019-10-31] MEDS: HumaLOG 300 UNITS/3 ML VIAL SC PRN ×3 (12:33→20:29)
[2019-10-31] MEDS: Propranolol 40 MG TAB PO SCH (20:26)
--- NOTE | 2019-11-01 06:30 | PDOC.FM ---
- Subjective Subjective: Patient is awake, alert, and interactive this morning. Denies any pain. States he is feeling well. States he would prefer to go home. States he has had home health at home. Discussed that this may not be the best/safest option for him. - Objective Vital Signs & Weight: Vital Signs (12 hours) Temp Pulse Resp BP Pulse Ox 10/31/19 20:25 77 L 10/31/19 20:00 97.9 F 77 20 114/70 99 Weight Admit Weight 60.509 kg Weight 59.148 kg Most Recent Monitor Data Heart Rate from ECG 77 NIBP 157/69 NIBP BP-Mean 98 Respiration from ECG 14 SpO2 100 I&O: 10/30/19 10/31/19 11/01/19 06:59 06:59 06:59 Intake Total 601 740 0195 Output Total 775 Balance -687 666 2753 Result Diagrams: 11/01/19 07:31 11/01/19 07:31 Phys Exam - Physical Examination Constitutional: NAD Respiratory: no wheezing, clear to auscultation bilateral Cardiovascular: RRR, no significant murmur Gastrointestinal: soft, non-tender, positive bowel sounds Musculoskeletal: no edema, pulses present Neurological: non-focal, moves all 4 limbs Psychiatric: normal affect, A&O x 3 Skin: normal turgor, cap refill <2 seconds Deviation from normal: scabbing on L leg, wound L foot Dx/Plan (1) Acute encephalopathy Code(s): G93.40 - ENCEPHALOPATHY, UNSPECIFIED Status: Acute (2) SVT (supraventricular tachycardia) Code(s): I47.1 - SUPRAVENTRICULAR TACHYCARDIA Status: Acute (3) Thrombocytopenia Code(s): D69.6 - THROMBOCYTOPENIA, UNSPECIFIED Status: Acute (4) Chronic back pain Code(s): M54.9 - DORSALGIA, UNSPECIFIED; G89.29 - OTHER CHRONIC PAIN Status: Chronic (5) Chronic kidney disease, stage 3 Status: Chronic (6) Cirrhosis Code(s): K74.60 - UNSPECIFIED CIRRHOSIS OF LIVER Status: Chronic Qualifiers: Ascites presence: without ascites (7) Hypertension associated with stage 3 chronic kidney disease due to type 2 diabetes mellitus Code(s): E11.22 - TYPE 2 DIABETES MELLITUS W DIABETIC CHRONIC KIDNEY DISEASE; I12.9 - HYPERTENSIVE CHRONIC KIDNEY DISEASE W STG 1-4/UNSP CHR KDNY; N18.3 - CHRONIC KIDNEY DISEASE, STAGE 3 (MODERATE) Status: Chronic (8) Insulin dependent diabetes mellitus Code(s): E11.9 - TYPE 2 DIABETES MELLITUS WITHOUT COMPLICATIONS; Z79.4 - RESIDENTIAL (CURRENT) USE OF INSULIN Status: Chronic (9) Methadone dependence Code(s): F11.20 - OPIOID DEPENDENCE, UNCOMPLICATED Status: Chronic (10) Polysubstance abuse Code(s): F19.10 - OTHER PSYCHOACTIVE SUBSTANCE ABUSE, UNCOMPLICATED Status: Chronic - Plan Plan: #Acute Hepatic Encephalopathy, improved Ammonia: 117 on admission, Previous level: 81. CT head: no acute findings. - Resume lactulose dosing. Titrate to 3 BMs/day. 5 BM yesterday, will decrease to 30 mg TID today - Home rifaximin - CM consulted to assist with dispo planning. HH vs placement. Pt is at high risk of readmission. - AOx3 today #Pressure ulcer LLE -Wound care consulted #ANJEL on CKD 3, resolved - GFR decreased to 33, will decrease lasix to 60 mg BID from 80 BID #Hx SVT - Saw by cards last admission and was candidate for ablation but wanted time to think about it. Brother says they are to f/u with Dr Richardson outpt 11/10/19 - On BB qHS #DM II with hypoglycemia - CC diet with ACHS accuchecks. - Pt states he takes 86 units daily at home - Will increase to 80 units today - Mod SSI #Chronic Thrombocytopenia - Plts 39. Patient has hx of thrombocytopenia. Will continue to monitor. 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 Patient will be following up outpatient. #HTN - BP at goal Code Status: Full DVT PPx: SCDs GI ppx: Protonix Dispo: Case management needs further discussion about placement verses home with patient's family. Addendum - Attending - Attending Attestation Date/Time: 11/01/19 3858 I personally evaluated the patient and discussed the management with I agree with the History, Examination, Assessment and Plan documented above with any addition or exceptions noted below. 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 I extensively educated him on the importance of better glucose control. In addition, he had a diabetic foot ulcer on the right form yesterday and we will have wound care come by to evaluate an treat. Planning on discharge pending insurance and placement.
[2019-11-01 07:58] LABS: Anion Gap 17 mmol/L (10-20); BUN (Urea Nitrogen) 95 mg/dL (8.4-25.7); Calc. Creatinine Clearance 30 mL/min (70-130); Calcium 9.5 mg/dL (7.8-10.44); Carbon Dioxide 24 mmol/L (23-31); Chloride 97 mmol/L (98-107); Estimated GFR-MDRD 33; Glucose 148 mg/dL (80-115); Potassium 4.8 mmol/L (3.5-5.1); Sodium 133 mmol/L (136-145)
[2019-11-01] MEDS: METHadone HCl 10 MG TAB PO SCH ×3 (08:19→21:01)
[2019-11-01] MEDS: Rifaximin 550 MG TAB PO SCH ×2 (08:19→20:59)
[2019-11-01] MEDS: Furosemide 80 MG TAB PO SCH ×2 (08:22→20:59)
[2019-11-01 08:37] LABS: #Eosinphils 0.3 thou/uL (0.0-0.7); #Monocytes 0.8 thou/uL (0.11-0.59); #Neutrophils 3.5 thou/uL (1.40-6.50); %Basophils 0.8 % (0.0-1.0); %Eosinophils 4.7 % (0.0-10.0); %Lymphocytes 17.9 % (21.0-51.0); %Monocytes 13.5 % (0.0-10.0); %Neutrophils 63.1 % (42.0-75.0); Auer Rods SLIGHT; Band 1 % (5-11); Eosinophils 8 % (0-10); Hemoglobin 10.7 g/dL (14.0-18.0); Lymphocytes 15 % (21-51); MDiff Complete? YES; Mean Corpuscular HGB CONC 36.3 g/dL (32.0-36.0); Mean Corpuscular Volume 93.4 fL (78.0-98.0); Mean Platelet Volume 10.5 fL (7.4-10.4); Monocytes 11 % (0-10); Neutrophil 65 % (42-75); Nucleated RBC 1 % (0); Ovalocytes SLIGHT = 2-5 cells (100X) (0-1/hpf); Platelet Count 39 thou/uL (130-400); Platelet Morphology Comment Appears Decreased; Polychromasia SLIGHT = 2-3 cells (100X) (0-2/hpf); RBC Distribution Width 15.9 % (11.5-14.5); Red Blood Cell (RBC) Count 3.18 mill/uL (4.70-6.10); White Blood Cell (WBC) Count 5.6 thou/uL (4.8-10.8)
[2019-11-01] MEDS ORDERED: INSULIN GLARGINE SC SCH (09:00)
[2019-11-01] MEDS ORDERED: PRE FILLED SC SCH (09:00)
[2019-11-01] MEDS: Spironolactone 100 MG TAB PO SCH (09:43)
[2019-11-01] MEDS: Polyethylene Glycol 3350 17 GM Packet PO SCH (09:43)
[2019-11-01] MEDS: Insulin Glargine 80 UNITS in Pre-Filled Syringe SC SCH (09:51)
[2019-11-01] MEDS: HumaLOG 300 UNITS/3 ML VIAL SC SCH ×4 (11:51→21:38)
[2019-11-01] MEDS ORDERED: Dextrose 5% in Water 1,000 ML IV PRN (16:31)
[2019-11-01] MEDS ORDERED: Insulin Regular 300 UNITS/3 ML VIAL SC SCH (16:45)
[2019-11-01] MEDS: Propranolol 40 MG TAB PO SCH (20:59)
[2019-11-02] MEDS: HumaLOG 300 UNITS/3 ML VIAL SC PRN (05:43)
[2019-11-02 05:45] LABS: Anion Gap 15 mmol/L (10-20); BUN (Urea Nitrogen) 99 mg/dL (8.4-25.7); Calc. Creatinine Clearance 26 mL/min (70-130); Calcium 9.2 mg/dL (7.8-10.44); Carbon Dioxide 25 mmol/L (23-31); Chloride 94 mmol/L (98-107); Estimated GFR-MDRD 28; Glucose 135 mg/dL (80-115); Potassium 5.8 mmol/L (3.5-5.1); Sodium 128 mmol/L (136-145)
[2019-11-02] MEDS ORDERED: HumaLOG 300 UNITS/3 ML VIAL SC SCH ×2 (06:28→08:30)
[2019-11-02] MEDS ORDERED: Sodium Chloride 0.9% 1,000 ML IV SCH (06:30)
--- NOTE | 2019-11-02 06:34 | PDOC.FM ---
- Subjective Subjective: Patient had >5 bowel movements yesterday. Denies pain this morning. No acute events overnight. Patient appears more confused this morning, slow to answer questions. - Objective Vital Signs & Weight: Vital Signs (12 hours) Temp Pulse Resp BP Pulse Ox 11/01/19 20:58 95 11/01/19 19:13 97.9 F 78 20 122/65 95 Weight Admit Weight 60.509 kg Weight 61.779 kg Most Recent Monitor Data Heart Rate from ECG 77 NIBP 157/69 NIBP BP-Mean 98 Respiration from ECG 14 SpO2 100 I&O: 10/31/19 11/01/19 11/02/19 06:59 06:59 06:59 Intake Total 130 2990 3700 Output Total 0 Balance 130 2990 3700 Result Diagrams: 11/01/19 07:31 11/02/19 09:22 Phys Exam - Physical Examination Constitutional: NAD slow to respond to questions, however AOx3 lying with head at foot of bed Respiratory: no wheezing, clear to auscultation bilateral Cardiovascular: RRR, no significant murmur Gastrointestinal: soft, non-tender Musculoskeletal: pulses present trace edema BLE Neurological: non-focal, moves all 4 limbs Deviation from normal: appears confused, slow to respond to questions Skin: cap refill <2 seconds Deviation from normal: ulcers BLE Dx/Plan (1) Acute encephalopathy Code(s): G93.40 - ENCEPHALOPATHY, UNSPECIFIED Status: Acute (2) SVT (supraventricular tachycardia) Code(s): I47.1 - SUPRAVENTRICULAR TACHYCARDIA Status: Acute (3) Thrombocytopenia Code(s): D69.6 - THROMBOCYTOPENIA, UNSPECIFIED Status: Acute (4) Chronic back pain Code(s): M54.9 - DORSALGIA, UNSPECIFIED; G89.29 - OTHER CHRONIC PAIN Status: Chronic (5) Chronic kidney disease, stage 3 Status: Chronic (6) Cirrhosis Code(s): K74.60 - UNSPECIFIED CIRRHOSIS OF LIVER Status: Chronic Qualifiers: Ascites presence: without ascites (7) Hypertension associated with stage 3 chronic kidney disease due to type 2 diabetes mellitus Code(s): E11.22 - TYPE 2 DIABETES MELLITUS W DIABETIC CHRONIC KIDNEY DISEASE; I12.9 - HYPERTENSIVE CHRONIC KIDNEY DISEASE W STG 1-4/UNSP CHR KDNY; N18.3 - CHRONIC KIDNEY DISEASE, STAGE 3 (MODERATE) Status: Chronic (8) Insulin dependent diabetes mellitus Code(s): E11.9 - TYPE 2 DIABETES MELLITUS WITHOUT COMPLICATIONS; Z79.4 - NURSING HOME (CURRENT) USE OF INSULIN Status: Chronic (9) Methadone dependence Code(s): F11.20 - OPIOID DEPENDENCE, UNCOMPLICATED Status: Chronic (10) Polysubstance abuse Code(s): F19.10 - OTHER PSYCHOACTIVE SUBSTANCE ABUSE, UNCOMPLICATED Status: Chronic (11) Diabetic ulcer of both feet Code(s): E11.621 - TYPE 2 DIABETES MELLITUS WITH FOOT ULCER; L97.519 - NON-PRS CHRONIC ULCER OTH PRT RIGHT FOOT W UNSP SEVERITY; L97.529 - NON-PRESSURE CHRONIC ULCER OTH PRT LEFT FOOT W UNSP SEVERITY Status: Acute - Plan Plan: #Acute Hepatic Encephalopathy, improved Ammonia: 117 on admission, Previous level: 81. CT head: no acute findings. - Resume lactulose dosing. Titrate to 3 BMs/day. 5 bowel movements yesterday; discontinued miralax, continue lactulose dose - Home rifaximin - Pt is at high risk of readmission. CM placed referral to [facility], awaiting response from them. - AOx3 #Hyperkalemia -held AM furosemide -hold AM spironolactone -check noon BMP #Hyponatremia -128 this AM -fluid restrict 1800 ml/day -Monitor strict I/Os -recheck BMP at noon #Diabetic ulcer bilat LE -Wound care consulted #ANJEL on CKD 3 - GFR decreased, treat with IVF as above #Hx SVT - Saw by cards last admission and was candidate for ablation but wanted time to think about it. Brother says they are to f/u with Dr Richardson outpt 11/10/19 - On BB qHS #DM II with hypoglycemia - CC diet with ACHS accuchecks. - Pt states he takes 86 units daily at home - Continue 80 u glargine AM, increase to 12 u TID -WM #Chronic Thrombocytopenia - Plts 39. Patient has hx of thrombocytopenia. Will continue to monitor. 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 Patient will be following up outpatient. #HTN - BP at goal Code Status: Full DVT PPx: SCDs GI ppx: Protonix Dispo: Case management assisted with referral to [facility], awaiting response. Patient will need to stay another day to monitor blood sugars, electrolyte abnormalities, and frequency of stools. Addendum - Attending - Attending Attestation Date/Time: 11/02/19 4592 I personally evaluated the patient and discussed the management with Dr. Huizar. I agree with the History, Examination, Assessment and Plan documented above with any addition or exceptions noted below. CP noncardiac. CKD 3->4, prerenal? IVVD in cirrhotic pt. with fluid leak and hypoalbuminemia. Check FeUrea. Monitor for stability. If continues to decline, consult Nephrology. If stable OK to d/c to SNU/DC when approval obtained.
[2019-11-02] MEDS: Insulin Glargine 80 UNITS in Pre-Filled Syringe SC SCH (08:55)
[2019-11-02] MEDS: METHadone HCl 10 MG TAB PO SCH ×3 (08:57→20:21)
[2019-11-02] MEDS: Rifaximin 550 MG TAB PO SCH ×2 (08:58→20:24)
[2019-11-02 10:13] LABS: Anion Gap 16 mmol/L (10-20); BUN (Urea Nitrogen) 101 mg/dL (8.4-25.7); Calc. Creatinine Clearance 27 mL/min (70-130); Calcium 8.9 mg/dL (7.8-10.44); Carbon Dioxide 23 mmol/L (23-31); Chloride 95 mmol/L (98-107); Estimated GFR-MDRD 28; Glucose 156 mg/dL (80-115); Potassium 5.4 mmol/L (3.5-5.1); Sodium 129 mmol/L (136-145)
[2019-11-02 10:15] LABS: Troponin I 0.018 ng/mL (< 0.028)
[2019-11-02] MEDS ORDERED: Furosemide 80 MG TAB PO SCH (11:45)
[2019-11-02] MEDS: HumaLOG 300 UNITS/3 ML VIAL SC SCH ×2 (12:43→16:35)
[2019-11-02 13:25] LABS: Anion Gap 14 mmol/L (10-20); BUN (Urea Nitrogen) 102 mg/dL (8.4-25.7); Calc. Creatinine Clearance 26 mL/min (70-130); Calcium 8.8 mg/dL (7.8-10.44); Carbon Dioxide 26 mmol/L (23-31); Chloride 95 mmol/L (98-107); Estimated GFR-MDRD 27; Glucose 166 mg/dL (80-115); Potassium 5.4 mmol/L (3.5-5.1); Sodium 130 mmol/L (136-145)
[2019-11-02 13:54] LABS: Creatinine, Urine 62.28 mg/dL (63-166)
[2019-11-02 14:49] LABS: INR-International Normal Ratio 1.5; PTT 29.8 SEC (22.9-36.1); Prothrombin Time 17.7 SEC (12.0-14.7)
[2019-11-02 15:05] LABS: ALT (SGPT) 19 U/L (8-55); AST (SGOT) 28 U/L (5-34); Albumin 3.7 g/dL (3.4-4.8); Alkaline Phosphatase 73 U/L (40-110); Bilirubin, Direct 0.6 mg/dL (0.1-0.3); Bilirubin, Total 3.8 mg/dL (0.2-1.2); Protein, Total 6.9 g/dL (5.8-8.1)
[2019-11-02 16:20] LABS: Actual Bicarbonate (HCO3a) 26.5 mEq/L (22-28); Base Excess (BEa) 2.4 mEq/L (-2.0 to +3.0); CO2 Tension 39.2 mmHg (35.0-45.0); Calcium, Ionized 1.12 mmol/L (1.12-1.30); Carboxyhemoglobin (COHb) 1.1 gm% (0.0-3.0); Hemoglobin (Hb) 10.2 g/dL (14.0-18.0); O2 Tension (PaO2) 101.7 mmHg (> 80.0); Potassium - ABG Lab 4.68 mmol/L (3.70-5.30); pH, Arterial 7.45 (7.35-7.45)
[2019-11-02 16:21] LABS: Puncture Site RB
--- NOTE | 2019-11-02 17:01 | PDOC.BPN ---
- Brief Progress Note [facility] transfer Note At about [address] Woodard that patient had been transferred to [facility] for heaptic encephalopathy. His ammonia was 400. I attended to the patient and examined him with Dr Woodard. GCS was 11. Vitals normal except for bradypnea. O2 sats 100%. Needs lactulose therapy. Will give via NG and enema. Encephalopathy should resolve with reduction of ammonia. Dr Woodard notified Dr Vidal and GI of transfer for consult.
[2019-11-02 18:17] LABS: #Eosinphils 0.1 thou/uL (0.0-0.7); #Lymphocytes 0.7 thou/uL (1.20-3.40); #Monocytes 0.4 thou/uL (0.11-0.59); #Neutrophils 2.9 thou/uL (1.40-6.50); %Basophils 1.2 % (0.0-1.0); %Eosinophils 1.2 % (0.0-10.0); %Lymphocytes 17.8 % (21.0-51.0); %Monocytes 10.6 % (0.0-10.0); %Neutrophils 69.2 % (42.0-75.0); Hemoglobin 10.5 g/dL (14.0-18.0); Mean Corpuscular HGB CONC 36.6 g/dL (32.0-36.0); Mean Corpuscular Hemoglobin 34.2 pg (27.0-31.0); Mean Corpuscular Volume 93.3 fL (78.0-98.0); Platelet Count 36 thou/uL (130-400); Red Blood Cell (RBC) Count 3.06 mill/uL (4.70-6.10); White Blood Cell (WBC) Count 4.2 thou/uL (4.8-10.8)
[2019-11-02 18:31] LABS: Anion Gap 16 mmol/L (10-20); BUN (Urea Nitrogen) 99 mg/dL (8.4-25.7); Calc. Creatinine Clearance 28 mL/min (70-130); Calcium 9.6 mg/dL (7.8-10.44); Carbon Dioxide 25 mmol/L (23-31); Chloride 98 mmol/L (98-107); Estimated GFR-MDRD 30; Glucose 96 mg/dL (80-115); Potassium 4.7 mmol/L (3.5-5.1); Sodium 134 mmol/L (136-145)
[2019-11-02] MEDS: Propranolol 40 MG TAB PO SCH (21:08)
--- NOTE | 2019-11-02 22:43 | CON ---
DATE OF CONSULTATION: 11/02/2019 REFERRING PHYSICIAN: [facility]. REASON FOR CONSULTATION: Hepatic encephalopathy. HISTORY OF PRESENT ILLNESS: Mr. Hong Strauss is a 64-year-old male, who has a history of liver cirrhosis from before. The patient was hospitalized approximately a week ago with altered mental status and unresponsiveness. Apparently, he was found be unresponsive at home and was brought by the patient' s brother. He did respond to lactulose very promptly. He had already had a head CAT scan, which was negative for pathology. He was doing very good until this afternoon when he suddenly became unresponsive again. In fact, this morning plan was being made to discharge the patient hopefully tomorrow. The patient was transferred to [facility] this afternoon because of unresponsiveness. The patient has NG tube and is getting some lactulose. I was unable to obtain history from the patient as he is not responding to any questions. Most of the history was obtained by going over admitting history and physical by Dr. Farrukh Nelson. As per admitting history and physical, which dated 10/25/2019, he was brought by the patient's brother after he was found to be unresponsive at home. The patient is known to have chronic liver disease, liver cirrhosis, thrombocytopenia. He also takes some pain medications , methadone off and on. On admission, the patient was found to have elevated ammonia level and was given lactulose oral dose. He did respond promptly with increasing mental status and he was awake and alert subsequently. He was tolerating diet. Going over the admitting history and physical and also lab data, he has evidence of chronic kidney disease. His BUN was very high on admission, which was dropping down to almost 165, but now he is going back again to 102. There is no history of any fever. No history of any hematochezia, rectal bleeding, or any melena. No family history. MEDICAL ILLNESSES: 1. Diabetes mellitus. 2. Hypertension. 3. Liver cirrhosis. 4. Thrombocytopenia. 5. Chronic kidney disease. 6. History of SVT. PAST SURGICAL HISTORY: 1. 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 2. No other major surgeries. Other relevant positives include history of Staph aureus bacteremia after amputation of toe in the past. REVIEW OF SYSTEMS: Not able to obtain. FAMILY HISTORY: Not able to obtain. MEDICATIONS: List reviewed. Medications include; 1. Rifaximin. 2. Spironolactone. 3. Pantoprazole. 4. Promethazine p.r.n. 5. Metformin. 6. Furosemide. 7. Methadone. 8. Insulin. 9. Propranolol. 10. Lactulose. PHYSICAL EXAMINATION: GENERAL: He is obtunded. He is barely opening his eyes. He does not respond to painful stimuli. VITAL SIGNS: Actually stable. He is afebrile. Pulse is 69, blood pressure 127 /69. He is barely able to keep his eyes open. Does not respond to any painful stimuli. NECK: Supple. CARDIOVASCULAR: First and second heart sounds normal. LUNGS: Clear to auscultation. ABDOMEN: Soft. Nondistended. Nontender. EXTREMITIES: Reveal no edema. LABORATORY DATA: The most recent one dated 11/01/2019, WBC 5,600, hemoglobin 10.7, hematocrit 29.9, platelet count 39,000, polymorphs 63, lymphocytes 1, monocytes 17. Chem-7 shows evidence of chronic kidney disease. BUN is 102, creatinine 2.40, glucose 166, calcium 8.8, alkaline phosphatase 401, bilirubin 3.8, AST 28, ALT 19, alkaline phosphatase 73. Ammonia level today is 401. CLINICAL IMPRESSION: 1. A 64-year-old known cirrhotic, who presents with encephalopathy. He did respond to lactulose and his mental status was back to normal_. Now he has gone back to his admitting baseline status where he is unresponsive. Ammonia level is very high at 401. He has no evidence of sepsis and no evidence of bleeding. 2. Diabetes. 3. Hypertension. 4. Supraventricular tachycardia. 5. Chronic kidney disease, with a component of_dehydration. RECOMMENDATIONS: Lactulose 30 mL every hour until he wakes up. Once he wakes up, may cut down the lactulose to may be every 3 hours. We will also obtain CBC and chem-7 to make sure he has not any bleeding or sepsis. Consider abdominal sonogram to rule out any liver lesion as he has some precipitating factor for the encephalopathy. Job ID: [id number] [facility]
[2019-11-03 04:20] LABS: Anion Gap 22 mmol/L (10-20); BUN (Urea Nitrogen) 101 mg/dL (8.4-25.7); Calc. Creatinine Clearance 25 mL/min (70-130); Calcium 9.6 mg/dL (7.8-10.44); Carbon Dioxide 20 mmol/L (23-31); Chloride 102 mmol/L (98-107); Estimated GFR-MDRD 25; Glucose 332 mg/dL (80-115); Potassium 3.8 mmol/L (3.5-5.1); Sodium 140 mmol/L (136-145)
[2019-11-03] MEDS: HumaLOG 300 UNITS/3 ML VIAL SC PRN ×3 (06:00→21:29)
--- NOTE | 2019-11-03 06:29 | ULT ---
ULTRASOUND ABDOMEN LIMITED: DATE: 11/03/2019 12:22 AM HISTORY: 64-year-old male with cirrhosis and encephalopathy. Rule out liver lesion and ascites. FINDINGS: Limited study. Patient was asleep during scanning, and unable to cooperate with breath holds and body position changes. Liver: Diffusely slightly coarse echotexture. Mildly lobular margins. Numerous focal small calcificat ions throughout parenchyma. No discrete solid mass identified, but CT with contrast would be much more sensitive than ultrasound. Gallbladder: Multiple mobile gallstones. Sludge. Wall thickness within normal limits. No pericholecys tic fluid. Common duct: 4 mm. Spleen: Enlarged. Kidneys: No hydronephrosis. No ascites visualized. Pancreas, IVC, and abdominal aorta: Not visualized IMPRESSION: 1. Hepatic cirrhosis. 2. Cholelithiasis and gallbladder sludge. 3. Splenomegaly. 4. Numerous focal calcifications throughout the liver: Evidence for old granulomatous disease.
[2019-11-03] MEDS: Rifaximin 550 MG TAB PO SCH ×2 (09:04→20:41)
[2019-11-03] MEDS: METHadone HCl 10 MG TAB PO SCH ×3 (09:04→20:41)
[2019-11-03] MEDS ORDERED: Acetaminophen 500 MG TAB PO PRN (09:06)
[2019-11-03] MEDS: Insulin Glargine 80 UNITS in Pre-Filled Syringe SC SCH (09:08)
[2019-11-03] MEDS: HumaLOG 300 UNITS/3 ML VIAL SC SCH ×3 (09:09→16:29)
--- NOTE | 2019-11-03 09:24 | PDOC.FM ---
- Subjective Subjective: Patient transferred to [facility] yesterday as mental status declined, and Ammonia level increased to 400. He had 8 BM overnight with lactulose via NG tube. Patient pulled out NG overnight. Mental status has improved this morning, he is still somewhat lethargic. AO to person and place. Otherwise he gives unreliable responses. Replies "yes" to the question does he have pain, but cannot tell me more. - Objective Vital Signs & Weight: Vital Signs (12 hours) Temp 11/03/19 08:16 98.4 F 11/03/19 03:58 98.4 F 11/02/19 23:42 99.2 F Weight Admit Weight 60.509 kg Weight 61.83 kg Most Recent Monitor Data Heart Rate from ECG 84 NIBP 149/72 NIBP BP-Mean 97 Respiration from ECG 17 SpO2 100 I&O: 11/02/19 11/03/19 11/04/19 06:59 06:59 06:59 Intake Total 3700 195 Output Total 0 3050 Balance 3700 -2855 Result Diagrams: 11/02/19 18:00 11/03/19 03:21 Phys Exam - Physical Examination Constitutional: NAD slumped over in bed, eyes closed while answering questions, very sleepy Respiratory: no wheezing, clear to auscultation bilateral Cardiovascular: RRR, no significant murmur Gastrointestinal: soft, no distention, positive bowel sounds Musculoskeletal: no edema Neurological: non-focal, moves all 4 limbs Skin: normal turgor, cap refill <2 seconds Dx/Plan (1) Acute encephalopathy Code(s): G93.40 - ENCEPHALOPATHY, UNSPECIFIED Status: Acute (2) SVT (supraventricular tachycardia) Code(s): I47.1 - SUPRAVENTRICULAR TACHYCARDIA Status: Acute (3) Thrombocytopenia Code(s): D69.6 - THROMBOCYTOPENIA, UNSPECIFIED Status: Acute (4) Chronic back pain Code(s): M54.9 - DORSALGIA, UNSPECIFIED; G89.29 - OTHER CHRONIC PAIN Status: Chronic (5) Chronic kidney disease, stage 3 Status: Chronic (6) Cirrhosis Code(s): K74.60 - UNSPECIFIED CIRRHOSIS OF LIVER Status: Chronic Qualifiers: Ascites presence: without ascites (7) Hypertension associated with stage 3 chronic kidney disease due to type 2 diabetes mellitus Code(s): E11.22 - TYPE 2 DIABETES MELLITUS W DIABETIC CHRONIC KIDNEY DISEASE; I12.9 - HYPERTENSIVE CHRONIC KIDNEY DISEASE W STG 1-4/UNSP CHR KDNY; N18.3 - CHRONIC KIDNEY DISEASE, STAGE 3 (MODERATE) Status: Chronic (8) Insulin dependent diabetes mellitus Code(s): E11.9 - TYPE 2 DIABETES MELLITUS WITHOUT COMPLICATIONS; Z79.4 - CONE TENDER (CURRENT) USE OF INSULIN Status: Chronic (9) Methadone dependence Code(s): F11.20 - OPIOID DEPENDENCE, UNCOMPLICATED Status: Chronic (10) Polysubstance abuse Code(s): F19.10 - OTHER PSYCHOACTIVE SUBSTANCE ABUSE, UNCOMPLICATED Status: Chronic (11) Diabetic ulcer of both feet Code(s): E11.621 - TYPE 2 DIABETES MELLITUS WITH FOOT ULCER; L97.519 - NON-PRS CHRONIC ULCER OTH PRT RIGHT FOOT W UNSP SEVERITY; L97.529 - NON-PRESSURE CHRONIC ULCER OTH PRT LEFT FOOT W UNSP SEVERITY Status: Acute - Plan Plan: #Acute Hepatic Encephalopathy -CT head: no acute findings. - decompensated yesterday, transferred to [facility]. NG placed, patient removed. -8 BM overnight, continue lactulose q3h per GI recs -GI consuled, appreciate recommendations - continue Home rifaximin #Hyperkalemia -80 mg qd furosemide -resume spironolactone #Hyponatremia -128 -> 140 today -fluid restrict 1800 ml/day -Monitor strict I/Os #Diabetic ulcer bilat LE -Wound care consulted #ANJEL on CKD 3 - GFR 25 - FeUrea 25, indicates pre-renal -plan to consult Nephro today #Hx SVT - Saw by cards last admission and was candidate for ablation but wanted time to think about it. Brother says they are to f/u with Dr Richardson outpt 11/10/19 - On BB qHS #DM II with hypoglycemia - CC diet with ACHS accuchecks. - Pt states he takes 86 units daily at home - Continue 80 u glargine AM, 12 u TID -WM (hold if not eating, spoke with nursing) #Chronic Thrombocytopenia - Plts 39. Patient has hx of thrombocytopenia. Will continue to monitor. - only SCDs for anticoagulation - consider liver doppler #HFpEF - Last echo 10/12 - Strict I&Os, daily wt - fluid restrict I/Os #Cirrhosis 2/2 Hep C - Continue home medications - Pt states he was previously treated for Hep C and cured, in [place] - He follows there every 3 months #Methadone Use for Opioid dependence - Continue methadone at 10mg TID. Patient will be following up outpatient. #HTN - BP at goal Code Status: Full DVT PPx: SCDs GI ppx: Protonix Dispo: Monitor status in IMCU, patient's mental status has minimally improved from yesterday. Addendum - Attending - Attending Attestation Date/Time: 11/03/19 1028 I personally evaluated the patient and discussed the management with Dr. Huizar. I agree with the History, Examination, Assessment and Plan documented above with any addition or exceptions noted below. More encephalopathic, improved with Lactulose hourly, GFR declined, Glycemic control deteriorated with increased lactulose, h/o portal vein thrombosis-- check Hepatic Doppler. Neph consult. Gi appreciated.
[2019-11-03 12:10] LABS: Anion Gap 19 mmol/L (10-20); BUN (Urea Nitrogen) 103 mg/dL (8.4-25.7); Calc. Creatinine Clearance 27 mL/min (70-130); Carbon Dioxide 21 mmol/L (23-31); Chloride 103 mmol/L (98-107); Estimated GFR-MDRD 28; Glucose 454 mg/dL (80-115); Potassium 4.1 mmol/L (3.5-5.1); Sodium 139 mmol/L (136-145)
[2019-11-03 12:16] LABS: Mean Corpuscular HGB CONC 36.9 g/dL (32.0-36.0); Mean Corpuscular Hemoglobin 34.6 pg (27.0-31.0); Mean Corpuscular Volume 93.7 fL (78.0-98.0); Mean Platelet Volume 11.3 fL (7.4-10.4); Platelet Count 39 thou/uL (130-400); RBC Distribution Width 16.4 % (11.5-14.5); Red Blood Cell (RBC) Count 2.91 mill/uL (4.70-6.10); White Blood Cell (WBC) Count 4.6 thou/uL (4.8-10.8)
[2019-11-03 12:17] LABS: #Lymphocytes 0.6 thou/uL (1.20-3.40); #Monocytes 0.7 thou/uL (0.11-0.59); #Neutrophils 3.3 thou/uL (1.40-6.50); %Basophils 0.5 % (0.0-1.0); %Lymphocytes 12.7 % (21.0-51.0); %Monocytes 14.6 % (0.0-10.0); %Neutrophils 71.2 % (42.0-75.0)
[2019-11-03 12:21] LABS: MDiff Complete? YES; Platelet Morphology Comment Appears Decreased; Polychromasia SLIGHT = 2-3 cells (100X) (0-2/hpf)
[2019-11-03] MEDS ORDERED: HumaLOG 300 UNITS/3 ML VIAL SC PRN (14:13)
[2019-11-03] MEDS ORDERED: Albumin 25% 25 GM/100 ML BOT IVPB SCH (14:30)
--- NOTE | 2019-11-03 14:56 | PRG ---
DATE OF SERVICE: 11/03/2019 SUBJECTIVE: Mr. Strauss is seen by Dr. Sanchez of GI consult yesterday. He has been previously seen by our practice assuming his GI care today. Mr. Strauss is more alert per his family. He is sitting up. He knows he is in the hospital. He is eating some. He has had 5 bowel movements today. MEDICATIONS: At home, he is on 1. Aldactone. 2. Rifaximin. 3. Metformin. 4. Propranolol. 5. Promethazine. 6. Protonix. 7. Methadone. 8. Lidocaine. 9. Lactulose. 10. Furosemide. Here he is on 1. Insulin sliding scale. 2. Lactulose 30 g q.3 hours. 3. Methadone. 4. Protonix. 5. Inderal. 6. Xifaxan 550 b.i.d. PHYSICAL EXAMINATION: VITAL SIGNS: Pulse 86, blood pressure 135/58, respirations 18, temperature 98.2. GENERAL: He has cachexia, muscle wasting. He is mildly icteric. LUNGS: Clear. HEART: Regular rate and rhythm without clicks, rubs, or murmurs. ABDOMEN: Soft and nontender. EXTREMITIES: No clubbing, cyanosis, or edema. Port tenting of the skin. LABORATORY DATA: White count 4.6, hemoglobin stable at 10, platelet count 39,000. INR 1.5. BUN and creatinine 103 and 2.37. Back in September, his BUN was 61. IMAGING: He had an ultrasound that showed no signs of hepatoma. He had CT scan of the chest and thorax on 10/11. He has no pulmonary embolus. He had a CAT scan of the abdomen and pelvis on 08/18/2019. There was no contrast on that study, surely it is not really adequate for any type of hepatoma screening. Otherwise, he had signs of cirrhosis and portal hypertension. ASSESSMENT: Recurrent hepatic encephalopathy. I think it is probably related to severe dehydration. His BUN is 110. He has no signs of GI bleeding. The Phenergan probably does not help when he is at home as it will worsen this and his chronic use of methadone probably adds to his risk for encephalopathy. Blood cultures were negative. RECOMMENDATIONS: 1. I would titrate the lactulose to 3 to 5 a day. 2. We would start him on some IV fluid and some albumin. 3. Would get an AFP. Job ID: [id number]
[2019-11-03] MEDS: Sodium Chloride 0.9% 1,000 ML IV SCH ×3 (15:20→23:40)
--- NOTE | 2019-11-03 15:29 | PDOC.PALCO ---
Palliative Care Consult - Consult Details Requesting Physician: Dr Huizar Reason for Consult: goals of care, assistance with communication prognosis/ disease, family support Family Members Present: Mother Karen and lupe Rai - Pertinent HPI 64 year old male with chronic Cirrhosis, HTN. Patient was at home with home health care, he lives with his brother who is his primary caregiver. His brother states that he takes lactulose daily as well as methadone. Patient also insulin dependent diabetic. The patients brother, Fredi, found the patient unresponsive at home and called EMS. Patient was transported on 10/25 to [facility] for evaluation in the emergency room. Patient was admitted to the hospital for higher level of care. Both brother and patients mother state he is non compliant with his care. During course of hospital stay patient has had acute events that have led to transition to care in the [facility]. During visit to day patient was intermittently awake, but primarily lethargic/encephalopathic. - Pertinent PMH DM, Cirrhosis, HTN, Drug/Alcohol abuse, Hep C - Social History Smoking Status: Current some day smoker (Marijuana) Alcohol Use: none Drug Use History: marijuana, other (previous drug abuse, currently on omethadone ) Living Situation: with family/parents (Lives with his brother who serves as his primary caregiver) - Medications MAR Reviewed: Yes - Allergies Allergies/Adverse Reactions: Allergies Allergy/AdvReac Type Severity Reaction Status Date / Time No Known Allergies Allergy Verified 02/24/19 11:46 - Subjective Awake intermittently but pronounced encephalopathy. - ROS Non Response: due to mental status - Objective Vital Signs: Vital Signs - Most Recent Temp Pulse Resp BP Pulse Ox 98.2 F 69 16 127/69 100 11/03/19 11:00 11/02/19 15:00 11/02/19 15:00 11/02/19 15:00 11/03/19 08:00 Palliative Performance Scale: 30 - Physical Exam Constitutional: cachectic, confusion, encephalitic, ill appearing HEENT: moist MMs Respiratory: no rales, no rhonchi, unlabored breathing Musculoskeletal: no edema, pulses present Neurology: moves all 4 limbs Deviation from normal: delayed movement Lymphatic: no nodes Skin: bruising, fragile Deviation from normal: Slightly icteric Psychiatric: flat affect - Problem List (1) Palliative care encounter Code(s): Z51.5 - ENCOUNTER FOR PALLIATIVE CARE Current Visit: Yes Status: Acute (2) Physical deconditioning Code(s): R53.81 - OTHER MALAISE Current Visit: Yes Status: Acute (3) Acute encephalopathy Code(s): G93.40 - ENCEPHALOPATHY, UNSPECIFIED Current Visit: No Status: Acute (4) Acute worsening of stage 3 chronic kidney disease Code(s): N18.3 - CHRONIC KIDNEY DISEASE, STAGE 3 (MODERATE) Current Visit: No Status: Acute (5) Cirrhosis Code(s): K74.60 - UNSPECIFIED CIRRHOSIS OF LIVER Current Visit: No Status: Chronic Qualifiers: Ascites presence: without ascites (6) Methadone dependence Code(s): F11.20 - OPIOID DEPENDENCE, UNCOMPLICATED Current Visit: No Status : Chronic - Plan/Recommendations Plan: Mother and brother gave overall review of patient social history as well as medical history. Discussed overall decline over the past several months and patient noncompliance. Patient lethargic, but oriented to self, family, and somewhat to current situation. Family is fatigued, after lengthy conversation said patient was usually resistant to what was relayed to him to do to achieve optimal functional status. Discussed patient wants to go home, smoke marijuana, and continue with methadone, and enjoy cold milk. Asked patient and family to consider resuscitation status in light of continued decline and potential for poor outcomes, also asked to give thought to realistic goals with current chronic and acute illnesses. *Contact information given and I will follow up 11/04 to further discuss goals of care. [90] minutes spent on this encounter with >50% of the time in counseling and coordination of care. Thank you for this very appropriate consult.
[2019-11-03] MEDS: Albumin 25% 25 GM/100 ML BOT IVPB SCH (20:49)
[2019-11-03] MEDS: Propranolol 40 MG TAB PO SCH (20:49)
[2019-11-04] MEDS ORDERED: Dextrose 50 % In Water 50 ML SYRINGE ONE (01:13)
--- NOTE | 2019-11-04 01:39 | CON ---
DATE OF CONSULTATION: HISTORY OF PRESENT ILLNESS: Mr. Strauss is a 64-year-old white male, who was initially admitted for mental status change. He was found to be having hepatic encephalopathy. During the course of his hospitalization, his renal function has worsened. He now has an acute kidney injury. I did review the urine sediment, it was relatively benign. The issue is whether this may be hepatorenal versus simple volume depletion with this patient. REVIEW OF SYSTEMS: No chest pain. Positive for confusion. No nausea. No vomiting. No abdominal pain. No gross hematuria. No leg edema. No shortness of breath. No fever or chills. No nausea. No vomiting. Decreased energy level. Decreased appetite. No headache. MEDICATIONS: Currently, the patient is on 1. Lactulose 30 g p.o. t.i.d. 2. Insulin glargine 86 units subcu q.a.m. 3. Methadone 10 mg p.o. t.i.d. 4. Normal saline at 150 mL an hour. 5. Xifaxan 550 mg p.o. b.i.d. Previous home medications included intake of 1. Furosemide at 80 mg p.o. b.i.d. 2. He was on spironolactone at 150 mg per day. 3. He was also on metformin at 1000 mg p.o. b.i.d. PAST MEDICAL HISTORY: 1. Recent diagnosis of acute kidney injury. 2. Cirrhosis. 3. Type 2 diabetes mellitus. 4. Hypertension status post SVT recently, status post hepatic encephalopathy. PAST SURGICAL HISTORY: Includes status post upper GI endoscopy with esophageal variceal banding x3, status post toe amputation. SOCIAL HISTORY: The patient has had a history of drug abuse. He has been using marijuana, past 50 years. Currently, on methadone. He has a history of heavy alcohol use. Education, high school. The patient claims to be living alone. Currently, no smoking or alcohol intake. ALLERGIES: NO KNOWN DRUG ALLERGIES. TRAUMA: None. IMMUNIZATIONS: Not Up-to-date. HOSPITALIZATIONS: Please see past medical history. FAMILY HISTORY: No family history of ESRD. PHYSICAL EXAMINATION: VITAL SIGNS: Blood pressure is noted at 113/64, heart rate is 72, respiratory rate 18, pulse ox 100%. GENERAL: Noted to be awake, alert, comfortable, not in overt distress. He is somewhat confused. SKIN: Decreased turgor. HEENT: He has pinkish conjunctivae. Anicteric sclerae. NECK: No neck mass. No carotid bruits. No JVD. CHEST: No deformities. LUNGS: Clear breath sounds. No wheezing. No crackles. HEART: Normal sinus rhythm. No murmur. No gallops. No rubs. ABDOMEN: Globular, soft, nontender. No masses. EXTREMITIES: No edema. No deformities. NEUROLOGICAL: The patient is oriented. Moving all extremities. No tremors. No asterixis. LABORATORY DATA: On November 03, 2019; white count 4.6, hemoglobin 10. November 03, 2019; sodium 138, potassium 4.1, chloride 103 carbon dioxide 21 BUN 103, creatinine 2.37, glucose 454, calcium 9.0. Urinalysis of October 25, 2019, specific gravity 1.011, protein 30, rbc's 4 to 6, wbc's 0 to 3. Abdominal ultrasound, kidneys-no hydronephrosis. Chest x-ray, no evidence of CHF. This was done on October 25, 2019, ASSESSMENT AND PLAN: Acute kidney injury on top of his chronic renal failure. I suspect a superimposed hemodynamically-mediated dysfunction related to the diuretic use and decreased p.o. intake with this patient. The plan is to continue albumin infusion at 25 g IV q.6h. He is also currently on IV fluid normal saline, which has been given by his tool procurement coordinator. We will review another urine sodium, urine creatinine with this patient. His urine sediment does not suggest any overt acute tubular necrosis. The most likely cause for the worsening renal dysfunction is he may have hemodynamically mediated dysfunction. Hepatorenal syndrome is a possibility, but less likely at the present time. Overall, agree with current management. There is no indication for any emergent dialytic intervention with this patient. We will recheck basic metabolic profile, CBC in a.m. Job ID: [id number] [facility]
--- NOTE | 2019-11-04 02:10 | CON ---
DATE OF CONSULTATION: HISTORY OF PRESENT ILLNESS: Hong Strauss is a gentleman with cirrhosis. He was admitted and treated for hepatic encephalopathy and was felt to be close to going home when he decompensated yesterday rapidly. He was transferred to the intermediate care unit. His encephalopathy has been treated. He has dramatically improved. He was sitting on the side of the bed when I saw him this morning. PAST MEDICAL HISTORY: Remarkable for: 1. Diabetes. 2. Hypertension. 3. Cirrhosis. 4. Anemia of chronic disease. 5. Thrombocytopenia secondary to cirrhosis. 6. Chronic kidney disease. 7. History of SVT. 8. History of toe amputations in both feet. SOCIAL HISTORY: He is nonsmoker and nondrinker. MEDICATIONS: Have been reviewed. FAMILY HISTORY: Negative for lung disease in early age according to family. PHYSICAL EXAMINATION: GENERAL: He is in no distress. He is pleasant, cooperative. VITAL SIGNS: He is afebrile, heart rate 77, blood pressure 113/58. HEAD AND NECK: Unremarkable, appears older than his age. LUNGS: Clear. HEART: Regular rhythm. S1, S2 are normal. ABDOMEN: Soft and nontender. EXTREMITIES: Without clubbing, cyanosis, or edema. IMPRESSION: Hepatic encephalopathy with cirrhosis, improved. No clinical signs of gastrointestinal bleeding. His family says that he is noncompliant with his lactulose at home because he hates the bowel movements. We will follow as long as he is in intermediate care unit and sign off when he transfers out. He appears to be stable at this time. Job ID: [id number] Minute consult with 50% of time on unit coordinating care. JOSÉ MIGUEL
[2019-11-04] MEDS: Albumin 25% 25 GM/100 ML BOT IVPB SCH ×3 (03:38→15:19)
[2019-11-04 04:52] LABS: INR-International Normal Ratio 1.8; PTT 33.5 SEC (22.9-36.1)
[2019-11-04 04:57] LABS: ALT (SGPT) 18 U/L (8-55); AST (SGOT) 23 U/L (5-34); Albumin 3.5 g/dL (3.4-4.8); Alkaline Phosphatase 62 U/L (40-110); Anion Gap 12 mmol/L (10-20); BUN (Urea Nitrogen) 95 mg/dL (8.4-25.7); Calc. Creatinine Clearance 39 mL/min (70-130); Calcium 8.3 mg/dL (7.8-10.44); Carbon Dioxide 23 mmol/L (23-31); Chloride 102 mmol/L (98-107); Estimated GFR-MDRD 43; Globulin 2.2 g/dL (2.4-3.5); Glucose 117 mg/dL (80-115); Protein, Total 5.7 g/dL (5.8-8.1); Sodium 134 mmol/L (136-145)
[2019-11-04 05:02] LABS: Potassium 2.8 mmol/L (3.5-5.1)
[2019-11-04 05:19] LABS: CKMB 5.5 ng/mL (0-6.6)
[2019-11-04] MEDS ORDERED: Potassium Chloride 40 MEQ in Sodium Chloride 0.9% 250 ML 250 ML IVPB SCH (05:45)
[2019-11-04 05:49] LABS: #Lymphocytes 0.4 thou/uL (1.20-3.40); #Monocytes 0.2 thou/uL (0.11-0.59); %Basophils 0.3 % (0.0-1.0); %Eosinophils 2.1 % (0.0-10.0); %Monocytes 14.4 % (0.0-10.0); %Neutrophils 60.2 % (42.0-75.0); Hemoglobin 7.4 g/dL (14.0-18.0); Mean Corpuscular HGB CONC 36.5 g/dL (32.0-36.0); Mean Corpuscular Hemoglobin 34.4 pg (27.0-31.0); Mean Corpuscular Volume 94.2 fL (78.0-98.0); Mean Platelet Volume 11.4 fL (7.4-10.4); Platelet Count 18 thou/uL (130-400); RBC Distribution Width 16.5 % (11.5-14.5); Red Blood Cell (RBC) Count 2.15 mill/uL (4.70-6.10); White Blood Cell (WBC) Count 1.6 thou/uL (4.8-10.8)
[2019-11-04 05:50] LABS: Anisocytosis SLIGHT = 6-15 cells (100X) (0-5/hpf); MDiff Complete? YES; Ovalocytes SLIGHT = 2-5 cells (100X) (0-1/hpf); Platelet Morphology Comment Appears Decreased
[2019-11-04 05:52] LABS: Bilirubin Negative (Negative); Blood, Urine 2+ (Negative); Clarity Turbid (Clear); Glucose, Urine (Dipstick) Normal (Negative); Leukocyte Negative Leu/uL (Negative); Nitrite Negative (Negative); Protein, Urine (Dipstick) 20 mg/dL (Neg-Trace); Squamous Epithelial None Seen HPF (0-3); Urobilinogen Normal mg/dL (Less than 2)
[2019-11-04 05:55] LABS: Creatinine, Urine 62.31 mg/dL (63-166)
[2019-11-04 06:13] LABS: WBC/HPF 0-3 HPF (0-3)
[2019-11-04 06:14] LABS: Bacteria/HPF 1+ HPF (None Seen)
[2019-11-04 06:16] LABS: Urine Culture Reflex Yes Yes
--- NOTE | 2019-11-04 06:42 | ULT ---
HEPATIC/RIGHT UPPER QUADRANT ABDOMINAL ULTRASOUND: Date: 11/04/19 HISTORY: Cirrhosis with splenomegaly. Elevated LFTs. COMPARISON: 11/02/19. TECHNIQUE: Multiplanar Momin scale and color Doppler images were obtained in a right upper quadrant abdominal ult rasound. Spectral analysis of the Doppler waveforms performed. FINDINGS: The liver is echogenic and heterogeneous in appearance, consistent with cirrhosis. No focal liver les ions are seen. Calcifications are seen in the liver, but are stable compared to prior exam. Normal directional flow is seen within the hepatic veins, hepatic artery, and splenic vasculature. Gallbladder not visualized. No intrahepatic biliary dilatation seen. Pancreas cannot be seen secondar y to bowel gas. IMPRESSION: Cirrhosis with normal directional flow of the hepatic and splenic vasculature. POS: [facility]
--- NOTE | 2019-11-04 06:51 | PDOC.FM ---
- Subjective Subjective: Patient acutely decompensated overnight. Patient developed hypoglycemia to the 20s and was given 1 amp D50. He also haed hypothermia overnight to 91.9 F and is now on a bear hugger. He was also bradycardic to the upper 40s. Blood pressures have been borderline, last recorded 92/47. Repeat labs showed worsened pancytopenia with WBC 1.6, Hgb 7.4 (decreased from 10.0), and platelets of 18 (decreased from 39). Potassium is low at 2.8. Tbili is increased to 3.0. CXR shows no pneumonia, official read pending. Pt is alert and oriented to person, place this AM. When asked the date, he reads the date off the whiteboard. States he is feeling well and wanting some orange juice. Per nursing he had 4 BM overnight that were light brown. - Objective Vital Signs & Weight: Vital Signs (12 hours) Temp Pulse Ox 11/04/19 04:27 91.9 F L 11/04/19 04:00 98 11/04/19 03:49 91.5 F L 11/04/19 00:00 98.2 F 11/03/19 20:00 96 11/03/19 19:51 98.4 F Weight Admit Weight 60.509 kg Weight 63.82 kg Most Recent Monitor Data Heart Rate from ECG 54 NIBP 98/49 NIBP BP-Mean 65 Respiration from ECG 11 SpO2 100 I&O: 11/02/19 11/03/19 11/04/19 06:59 06:59 06:59 Intake Total 3700 195 2753 Output Total 0 3050 2060 Balance 3700 -2855 693 Result Diagrams: 11/04/19 04:12 11/04/19 04:12 Phys Exam - Physical Examination Constitutional: NAD HEENT: moist MMs Respiratory: no wheezing, clear to auscultation bilateral Cardiovascular: RRR, no significant murmur Gastrointestinal: soft, non-tender Musculoskeletal: no edema, pulses present Neurological: non-focal, moves all 4 limbs Psychiatric: normal affect, A&O x 3 Skin: normal turgor, cap refill <2 seconds Dx/Plan (1) Acute encephalopathy Code(s): G93.40 - ENCEPHALOPATHY, UNSPECIFIED Status: Acute (2) SVT (supraventricular tachycardia) Code(s): I47.1 - SUPRAVENTRICULAR TACHYCARDIA Status: Acute (3) Thrombocytopenia Code(s): D69.6 - THROMBOCYTOPENIA, UNSPECIFIED Status: Acute (4) Chronic back pain Code(s): M54.9 - DORSALGIA, UNSPECIFIED; G89.29 - OTHER CHRONIC PAIN Status: Chronic (5) Chronic kidney disease, stage 3 Status: Chronic (6) Cirrhosis Code(s): K74.60 - UNSPECIFIED CIRRHOSIS OF LIVER Status: Chronic Qualifiers: Ascites presence: without ascites (7) Hypertension associated with stage 3 chronic kidney disease due to type 2 diabetes mellitus Code(s): E11.22 - TYPE 2 DIABETES MELLITUS W DIABETIC CHRONIC KIDNEY DISEASE; I12.9 - HYPERTENSIVE CHRONIC KIDNEY DISEASE W STG 1-4/UNSP CHR KDNY; N18.3 - CHRONIC KIDNEY DISEASE, STAGE 3 (MODERATE) Status: Chronic (8) Insulin dependent diabetes mellitus Code(s): E11.9 - TYPE 2 DIABETES MELLITUS WITHOUT COMPLICATIONS; Z79.4 - CUSTODIAL (CURRENT) USE OF INSULIN Status: Chronic (9) Methadone dependence Code(s): F11.20 - OPIOID DEPENDENCE, UNCOMPLICATED Status: Chronic (10) Polysubstance abuse Code(s): F19.10 - OTHER PSYCHOACTIVE SUBSTANCE ABUSE, UNCOMPLICATED Status: Chronic (11) Diabetic ulcer of both feet Code(s): E11.621 - TYPE 2 DIABETES MELLITUS WITH FOOT ULCER; L97.519 - NON-PRS CHRONIC ULCER OTH PRT RIGHT FOOT W UNSP SEVERITY; L97.529 - NON-PRESSURE CHRONIC ULCER OTH PRT LEFT FOOT W UNSP SEVERITY Status: Acute - Plan Plan: #SIRS, unknown source -Called for hypoglycemia into 20s and hypothermia to 91.9 (placed on bear hugger ), bradycardic to upper 40s - CXR (pending), CBC, BMP, PT/PTT/INR and blood cultures drawn -Pancytopenia worsened overnight: CBC 1.6, Hgb 7.4, Plt 18 -INR worsened to 1.8 -consider blood transfusion this AM -As he had pancytopenia prior, and hypothermia was likely 2/2 to hypoglycemia ( both now resolved), will not start antibiotics -Pt well appearing this AM with no complaints -May stop bear hugger now that hypothermia resolved #Acute Hepatic Encephalopathy 2/2 Cirrhosis from hep C (treated) - decompensated 11/02 with ammonia 400s and transferred to IMCU. NG placed and patient removed 11/03. -GI consulted, appreciate recommendations -AFP <2.0, continue albumin 25 mg IV q6h, IVF -lactulose, titrate to 3-5 BM/day -held spironolactone and furosemide 2/2 hypotension #Cirrhosis 2/2 Hep C - Meld score 24 (14-15% estimated 90 day mortality) - Pt states he was previously treated for Hep C and cured, in [place] #Hyperkalemia/hypokalemia -continue to monitor, replacing K this AM as K 2.8 #Hyponatremia -134 -fluid restrict 1800 ml/day -Monitor strict I/Os #Diabetic ulcer bilat LE -Wound care consulted #ANJEL on CKD 3 - FeUrea 25, indicates pre-renal -Nephrology, Dr. Bui consulted, appreciate recs -continue albumin 25 g IV q6h #Hx SVT - Saw by cards last admission and was candidate for ablation but wanted time to think about it. Brother says they are to f/u with Dr Richardson outpt 11/10/19 - On BB qHS #DM II with hypoglycemia - CC diet with ACHS accuchecks. - Pt states he takes 86 units daily at home - Continue 86 u glargine AM, 12 u TID -WM (hold if not eating, spoke with nursing) - moderate SSI #Chronic Thrombocytopenia - Plts 18. Patient has hx of thrombocytopenia. Will continue to monitor. - only SCDs for anticoagulation - liver doppler showed no portal vein thrombus #HFpEF - Last echo 10/12 - Strict I&Os, daily wt - fluid restrict I/Os #Methadone Use for Opioid dependence - Continue methadone at 10mg TID. Patient will be following up outpatient. #HTN - BP low, home meds held Code Status: Full DVT PPx: SCDs GI ppx: Protonix Dispo: Monitor status in IMCU, patient's mental status has improved from yesterday. Addendum - Attending - Attending Attestation Date/Time: 11/04/19 0909 I personally evaluated the patient and discussed the management with Dr. Huizar I agree with the History, Examination, Assessment and Plan documented above with any addition or exceptions noted below. Hypoglycemic and hypothermic overnight, responded to resuscitative measures and baseline now. Hematologic numbers dropped. GFR improved. Hyponatremia baseline for hepatic failure/hypoalbuminemia. Prognosis long-term guarded to poor.
[2019-11-04] MEDS: Sodium Chloride 0.9% 1,000 ML IV SCH ×3 (07:20→17:00)
--- NOTE | 2019-11-04 07:33 | PDOC.EVN ---
Event Note - Event Note Event Note: At approximately 0300, the Resident Team was alerted that Mr. Strauss was was profoundly hypoglycemic at 26 and hypothermic with a core temperature measured via rectum at 91 F. Mr. Strauss did not appear septic or in pain at the time of evaluation, and he responded to questions in 1 word answers and was compliant with a physical exam, which was unremarkable. As no obvious cause of his hypoglycemia and hypothermia could be determined, 1 amp of D50 was administered and a bear-hugger warming blanket was placed. A UA w/ reflex microscopy, CBC, CMP, Blood Culture, CXR and Troponin was drawn and the patient was monitored frequently Q1H in order to asses for decline in cognitive function or physical exam. Attending Note: Agree with documentation above. Unsure why patient became hypothermic. But other changes related to hypothermia. Previously no episodes of temp instability. No s/sx of infectious source. Likely environmental. Monitor closely throughout the morning. Begin re-warming. Monitor for bleeding risk due to liver dz and now hypothermia. Correct glucose. If remains hypothermic in 1 hour, place core temp monitor with foley. Cedeño
[2019-11-04] MEDS ORDERED: Vancomycin HCl 1 GM in Premix Bag 1 BAG IVPB SCH (08:00)
[2019-11-04] MEDS ORDERED: Piperacillin/Tazobactam 3.375 GM in Sodium Chloride 0.9% 100 ML IVPB SCH (08:00)
--- NOTE | 2019-11-04 08:46 | RAD ---
RADIOGRAPH CHEST 1 VIEW: 11/04/2019 4:24 a.m. HISTORY: A 64-year-old male with hypothermia. FINDINGS: There are no air space densities, pulmonary edema, pneumothorax, or cardiomegaly. The lateral costop hrenic angles are sharp. IMPRESSION: No acute cardiopulmonary findings. jn [] POS: CET
[2019-11-04] MEDS: HumaLOG 300 UNITS/3 ML VIAL SC SCH ×3 (08:53→17:40)
[2019-11-04] MEDS: METHadone HCl 10 MG TAB PO SCH ×3 (08:54→20:16)
[2019-11-04] MEDS: Rifaximin 550 MG TAB PO SCH ×2 (08:56→20:16)
[2019-11-04] MEDS ORDERED: INSULIN GLARGINE SC SCH (09:00)
[2019-11-04] MEDS ORDERED: PRE FILLED SC SCH (09:00)
[2019-11-04] MEDS ORDERED: Vancomycin HCl 1.25 GM in Sodium Chloride 0.9% 250 ML 250 ML IVPB SCH (09:00)
[2019-11-04 09:09] LABS: Troponin I 0.068 ng/mL (< 0.028)
--- NOTE | 2019-11-04 09:55 | PRG ---
DATE OF SERVICE: 11/04/2019 SUBJECTIVE: Mr. Strauss is a 64-year-old white male, who was admitted for hepatic encephalopathy, cirrhosis, and seen by the renal service for his acute kidney injury. He has superimposed hemodynamically-mediated renal dysfunction. IV hydration has been given. In addition, we have given him albumin infusion. No new complaints today. He is mentating better. OBJECTIVE: VITAL SIGNS: Blood pressure 100/48, heart rate 60, respiratory rate 12, and pulse ox 100%. GENERAL: Awake and alert, comfortable, not in overt distress. SKIN: Decreased turgor. HEENT: Slightly pale conjunctivae. Anicteric sclerae. NECK: No neck mass. No carotid bruits. No JVD. CHEST: No deformities. LUNGS: Clear breath sounds. HEART: Normal sinus rhythm. No murmur. No gallops. No rubs. ABDOMEN: Globular, soft, and nontender. No masses. EXTREMITIES: No edema. No deformities. MEDICATIONS: Medications of 11/04/2019 were reviewed. LABORATORY DATA: On 11/04/2019: White count 1.6 and hemoglobin 7.4. Sodium 134, potassium 2.8, chloride 102, carbon dioxide 23, BUN 95, creatinine 1.61, calcium 8.3, total bilirubin 3.0, and albumin 3.5. ASSESSMENT AND PLAN: 1. Acute kidney injury, superimposed hemodynamically-mediated renal dysfunction. Continue current IV hydration. I will extend albumin infusion for another day at 25 g IV q.6. Continue normal saline. There is no indication for any dialytic intervention. 2. Anemia. We will continue to observe. P.r.n. blood transfusion. 3. Mild hypokalemia. P.r.n. potassium replacement. 4. We will recheck basic metabolic and CBC in a.m. Job ID: [id number]
[2019-11-04] MEDS: Insulin Glargine 46 UNITS in Pre-Filled Syringe 1 EACH SC SCH (10:12)
[2019-11-04] MEDS: Insulin Glargine 40 UNITS in Pre-Filled Syringe SC SCH (10:13)
--- NOTE | 2019-11-04 10:26 | PDOC.BPN ---
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 He was found by his brother and was unresponsive at that time, so EMS was called. Patient had been noncompliant with his lactulose because of the diarrhea. He was started on lactulose in the hospital. Since that time, his mentation has waxed and waned. Due to his DM2, his blood sugars have been difficult to control (lactulose affects the blood sugar as well). Wound care is also consulted for his diabetic wounds on his feet. He has also had hyper and hypokalemia intermittently, and his spironolactone has affected this as well. It is currently held for his lower blood pressures. He is on SCDs due to his low platelets and poor kidney function. Liver sono showed no portal vein thrombosis. His Na-Meld score has remained in the 20s, most recently 24 (14-15% estimated 90 day mortality). He follows for his hepatitis in [place]. Family has stated that if his meld score gets high enough, they are hopeful he will go on the transplant list. Palliative has been consulted for goals of care. On 11/02, pt acutely decompensated and was found to have ammonia of 400s, was non-responsive and moved to ICU. GI Dr. Sanchez was consulted. He briefly was given lactulose through an NG, which he removed. His mental status improved enough to take lactulose orally and had frequent BMs, and mentation improved. His kidney function had been declining, so Dr. Bui (nephrology) was consulted. He concluded that the patient had ANJEL with superimposed hemodynamically- mediated renal dysfunction. He recommended that the patient continue albumin, which had been started by GI, as well as IV hydration. The night of 11/03-11/04, pt became hypoglycemic into 20s, and hypothermic to 91.9F. He was givne 1 amp D50 and placed on bear hugger, and the episode resolved. Repeat labs showed worsened pancytopenia. Blood culture was drawn. The following morning he was AOx3 and well appearing. No antibiotics were started as patient was pancytopenic prior, and his hypothermia was likely 2/2 to the hypoglycemia. Patient will likely need SNF vs Rehab at discharge, or home hospice if the family desires.
--- NOTE | 2019-11-04 16:01 | PDOC.PALPN ---
Palliative Progress Note - Subjective Awake, more alert and decisional. Weakness, but able to feed self and participate in conversation. - Objective Vital Signs: Vital Signs - Most Recent Temp Pulse Resp BP Pulse Ox 98.6 F 69 16 127/69 100 11/04/19 15:15 11/02/19 15:00 11/02/19 15:00 11/02/19 15:00 11/04/19 08:00 - Physical Exam Constitutional: cachectic, ill appearing, mild distress Deviation from normal: Sunken ocular bed, clavicular wasting HEENT: EOMI, moist MMs, poor dentition Respiratory: unlabored breathing Cardiovascular: RRR Gastrointestinal: non-tender, positive bowel sounds Musculoskeletal: pulses present, diffuse muscle atrophy Neurology: moves all 4 limbs, no focal deficits Skin: cap refill <2 seconds, bruising Psychiatric: A&O x 3, flat affect - Assessment (1) Palliative care encounter Code(s): Z51.5 - ENCOUNTER FOR PALLIATIVE CARE Current Visit: Yes Status: Acute (2) Physical deconditioning Code(s): R53.81 - OTHER MALAISE Current Visit: Yes Status: Acute (3) Acute encephalopathy Code(s): G93.40 - ENCEPHALOPATHY, UNSPECIFIED Current Visit: No Status: Acute (4) Acute worsening of stage 3 chronic kidney disease Code(s): N18.3 - CHRONIC KIDNEY DISEASE, STAGE 3 (MODERATE) Current Visit: No Status: Acute (5) Cirrhosis Code(s): K74.60 - UNSPECIFIED CIRRHOSIS OF LIVER Current Visit: No Status: Chronic Qualifiers: Ascites presence: without ascites (6) Methadone dependence Code(s): F11.20 - OPIOID DEPENDENCE, UNCOMPLICATED Current Visit: No Status : Chronic - Plan Plan: Extensive conversation in relation to chronic conditions including liver disease , renal disease, and patient unwillingness to be compliant in the home setting. Family discussed they feel that he has become too sick to care for safely in the home setting. Patient wants to go home, and was indifferent in relation to rehab. Talked about if he is not able to participate in rehab it removes the oppertunity to return home safely. Possible transition to Nursing facility that can provide care, with potential of hospice if benefits allow for dual coverage. Also discussed DNAR at length, patient does not wish to have resuscitative measures carried out. Family at bedside and support his decision. Paper work completed, order placed, and Dr Huizar notified. Will continue to support patient and family as goals of care are more clearly identified and inline with a safe discharge plan [90] minutes spent on this encounter with >50% of the time in counseling and coordination of care. - ROS Constitutional: weakness Eyes: other (denies blurry vision) ENT: other (denies difficulity swallowing, congestion) Respiratory: other (Denies shortness of breath, but noted with exertion) Cardiology: other (denies chest pain, palpitations) Gastrointestinal: other (negative for nausea, vomiting) Psychological: other
[2019-11-04] MEDS: Propranolol 40 MG TAB PO SCH (20:16)
[2019-11-05] MEDS: Sodium Chloride 0.9% 1,000 ML IV SCH ×3 (00:38→23:10)
[2019-11-05 03:54] LABS: Platelet Count 16 thou/uL (130-400)
[2019-11-05 04:25] LABS: #Lymphocytes 0.3 thou/uL (1.20-3.40); #Monocytes 0.3 thou/uL (0.11-0.59); #Neutrophils 1.5 thou/uL (1.40-6.50); %Basophils 0.3 % (0.0-1.0); %Eosinophils 2.1 % (0.0-10.0); %Lymphocytes 13.9 % (21.0-51.0); %Monocytes 13.8 % (0.0-10.0); %Neutrophils 69.9 % (42.0-75.0); Hemoglobin 7.5 g/dL (14.0-18.0); Mean Corpuscular HGB CONC 37.1 g/dL (32.0-36.0); Mean Corpuscular Hemoglobin 35.8 pg (27.0-31.0); Mean Corpuscular Volume 96.5 fL (78.0-98.0); Mean Platelet Volume 10.3 fL (7.4-10.4); Platelet Morphology Comment Appears Decreased; RBC Distribution Width 17.2 % (11.5-14.5); Red Blood Cell (RBC) Count 2.09 mill/uL (4.70-6.10); White Blood Cell (WBC) Count 2.2 thou/uL (4.8-10.8)
[2019-11-05 04:31] LABS: Anion Gap 11 mmol/L (10-20); BUN (Urea Nitrogen) 82 mg/dL (8.4-25.7); Calc. Creatinine Clearance 49 mL/min (70-130); Calcium 8.9 mg/dL (7.8-10.44); Carbon Dioxide 24 mmol/L (23-31); Chloride 104 mmol/L (98-107); Estimated GFR-MDRD 53; Glucose 88 mg/dL (80-115); Potassium 4.4 mmol/L (3.5-5.1); Sodium 135 mmol/L (136-145)
[2019-11-05] MEDS: METHadone HCl 10 MG TAB PO SCH ×3 (09:32→20:25)
[2019-11-05] MEDS: Rifaximin 550 MG TAB PO SCH ×2 (09:32→20:12)
[2019-11-05] MEDS: HumaLOG 300 UNITS/3 ML VIAL SC SCH ×3 (09:36→16:41)
[2019-11-05] MEDS: Insulin Glargine 40 UNITS in Pre-Filled Syringe SC SCH (09:37)
[2019-11-05] MEDS: Insulin Glargine 46 UNITS in Pre-Filled Syringe 1 EACH SC SCH (09:37)
--- NOTE | 2019-11-05 11:52 | PRG ---
DATE OF SERVICE: 11/05/2019 SERVICE: Renal Medicine. SUBJECTIVE: Mr. Strauss is a 64-year-old white male who was seen by the Renal Service for acute kidney injury that was hemodynamically-mediated renal dysfunction. His diuretics were placed on hold. In addition, he received normal saline as well as albumin infusion. This has significantly improved his serum creatinine from a size 2.57 to a most recent value of 1.35. In addition, the patient was also noted to be encephalopathic, and this has also improved. No other complaints today. No chest pain or shortness of breath. OBJECTIVE: VITAL SIGNS: Blood pressure 121/54, heart rate 76, O2 saturation 100%, and temperature 98.3. GENERAL: Awake, sitting comfortable, not in distress. SKIN: Adequate turgor. HEENT: He has slightly pale conjunctivae. Anicteric sclerae. NECK: No neck mass. No carotid bruits. No JVD. CHEST: No deformities. LUNGS: Clear breath sounds. No wheezing. No crackles. HEART: Normal sinus rhythm. No murmur. No gallops. No rubs. ABDOMEN: Globular, soft. Nontender. No masses. EXTREMITIES: No edema. No deformities. MEDICATIONS: Of November 05, 2019, were reviewed. LABORATORY DATA: Laboratories of November 05, 2019 showed a white count of 2.2, hemoglobin 7.5, and platelet count is noted to be at 16,000. Sodium 135, potassium 4.4, chloride 104, carbon dioxide 24, BUN 82, creatinine 1.35, glucose 88, and calcium 8.9. ASSESSMENT AND PLAN: 1. Acute kidney injury - prerenal azotemia. Much improved with volume repletion with colloids and crystalloids. Continue current management. Normal saline has been now been decreased. Creatinine is much improved. 2. Pancytopenia. Supportive care. P.r.n. platelet transfusion once the platelet is less than 10,000. Hemoglobin was noted to be stable as well as the white count. If needed, we can always get Hematology consult for further evaluation. 3. Hepatic encephalopathy, resolved. 4. Cirrhosis. Supportive care. Job ID: [id number]
[2019-11-05] MEDS ORDERED: Dextrose 50 % In Water 50 ML SYRINGE ONE (12:53)
[2019-11-05] MEDS: Dextrose 50% Abboject 50 ML SYRINGE SLOW IVP PRN ×2 (13:00→19:15)
--- NOTE | 2019-11-05 14:11 | PDOC.FM ---
- Subjective Subjective: Pt sitting up in bed. pt alert and oriented. Pt denies any acute events overnight. Denies any SOB or chest pain. Denies any headaches or vision changes. Denies any abdominal pain. Denies any swelling in LE. Denies any diarrhea. Reports having plenty of bowel movements due to medication. - Objective MAR Reviewed: Yes Vital Signs & Weight: Vital Signs (12 hours) Temp BP BP Pulse Ox 11/05/19 11:08 98.1 F 11/05/19 10:55 125/63 111/58 L 11/05/19 08:00 98 11/05/19 07:14 98.3 F Weight Admit Weight 60.509 kg Weight 63.82 kg Most Recent Monitor Data Heart Rate from ECG 60 NIBP 115/55 NIBP BP-Mean 75 Respiration from ECG 16 SpO2 100 I&O: 11/04/19 11/05/19 11/06/19 06:59 06:59 06:59 Intake Total 2753 3495 500 Output Total 2060 700 Balance 693 2795 500 Result Diagrams: 11/05/19 03:26 11/05/19 03:26 Radiology Reviewed by me: Yes Radiology: 11/04 ab us:cirrhosis w/ normal directional flow of the hepatic and splenic vasculature. 11/04 CXR: No acute cardiopulmonary findings. Phys Exam - Physical Examination Constitutional: NAD Pt jaundiced in color HEENT: PERRLA, moist MMs Neck: no nodes, supple, full ROM Respiratory: no wheezing, no rales, no rhonchi, clear to auscultation bilateral Cardiovascular: RRR, no significant murmur, no rub belly moderatley disteneded. Musculoskeletal: no edema, pulses present Neurological: non-focal, normal sensation, moves all 4 limbs Psychiatric: normal affect, A&O x 3 Dx/Plan (1) Palliative care encounter Code(s): Z51.5 - ENCOUNTER FOR PALLIATIVE CARE Status: Acute (2) Acute worsening of stage 3 chronic kidney disease Code(s): N18.3 - CHRONIC KIDNEY DISEASE, STAGE 3 (MODERATE) Status: Acute (3) Cirrhosis Code(s): K74.60 - UNSPECIFIED CIRRHOSIS OF LIVER Status: Chronic Qualifiers: Ascites presence: without ascites (4) Hypertension associated with stage 3 chronic kidney disease due to type 2 diabetes mellitus Code(s): E11.22 - TYPE 2 DIABETES MELLITUS W DIABETIC CHRONIC KIDNEY DISEASE; I12.9 - HYPERTENSIVE CHRONIC KIDNEY DISEASE W STG 1-4/UNSP CHR KDNY; N18.3 - CHRONIC KIDNEY DISEASE, STAGE 3 (MODERATE) Status: Chronic (5) Insulin dependent diabetes mellitus Code(s): E11.9 - TYPE 2 DIABETES MELLITUS WITHOUT COMPLICATIONS; Z79.4 - [employer] (CURRENT) USE OF INSULIN Status: Chronic (6) Methadone dependence Code(s): F11.20 - OPIOID DEPENDENCE, UNCOMPLICATED Status: Chronic (7) Polysubstance abuse Code(s): F19.10 - OTHER PSYCHOACTIVE SUBSTANCE ABUSE, UNCOMPLICATED Status: Chronic - Plan Plan: #SIRS, unknown source -Called for hypoglycemia into 20s and hypothermia to 91.9 (placed on bear hugger ), bradycardic to upper 40s - CXR (pending), CBC, BMP, PT/PTT/INR and blood cultures drawn -Pancytopenia worsened overnight: CBC and Hgb improved today mildly. Stable. , Plt dropped to 16. -INR worsened to 1.8 yesterday. Ordered recheck today. -As he had pancytopenia prior, and hypothermia was likely 2/2 to hypoglycemia ( both now resolved), will not start antibiotics -Pt well appearing this AM with no complaints -May stop bear hugger now that hypothermia resolved #Acute Hepatic Encephalopathy 2/2 Cirrhosis from hep C (treated) - decompensated 11/02 with ammonia 400s and transferred to [facility]. NG placed and patient removed 11/03. -GI consulted, appreciate recommendations -AFP <2.0, received albumin the last few days. Held -lactulose, titrate to 3-5 BM/day. continue BID rifaximin -held spironolactone and furosemide 2/2 hypotension #Cirrhosis 2/2 Hep C - Meld score 24 (14-15% estimated 90 day mortality) - Pt states he was previously treated for Hep C and cured, in [place] #Hyperkalemia/hypokalemia -continue to monitor, potassium stable. #Diabetic ulcer bilat LE -Wound care consulted #ANJEL on CKD 3 - FeUrea 25, indicates pre-renal -Nephrology, Dr. Bui consulted, appreciate recs -Continuing to improve at this time. Continue to monitor. #Hx SVT - Saw by cards last admission and was candidate for ablation but wanted time to think about it. Brother says they are to f/u with Dr Richardson outpt 11/10/19 - On BB qHS #DM II with hypoglycemia - CC diet with ACHS accuchecks. -Pt continued to have another hypoglycemic blood sugar earlier. Will decrease insulin dose to 80u in the AM. Placed on mild SSI at this time. #Chronic Thrombocytopenia - Plts 16. Patient has hx of thrombocytopenia. Will continue to monitor. - only SCDs for anticoagulation - liver doppler showed no portal vein thrombus -Will transfuse if drops below 10 -Likely related to cirrhosis. Await GI recs. #HFpEF - Last echo 10/12 - Strict I&Os, daily wt - fluid restrict I/Os #Methadone Use for Opioid dependence - Continue methadone at 10mg TID. Patient will be following up outpatient. #HTN - BP low, home meds held Code Status: Full DVT PPx: SCDs GI ppx: Protonix Dispo: Monitor status in IMCU, patient's mental status has improved from yesterday. Addendum - Attending - Attending Attestation Date/Time: 11/05/19 3054 I personally evaluated the patient and discussed the management with Dr. Woodard. I agree with the History, Examination, Assessment and Plan documented above with any addition or exceptions noted below. Pt seen sitting up on the side of the bed eating breakfast this morning. He denies concerns. Pt with hypoglycemia overnight, will decrease insulin. Pt remains thrombocytopenic. No active bleeding at this time. Pt is dnr. Will be working on placement.
[2019-11-05] MEDS ORDERED: HumaLOG 300 UNITS/3 ML VIAL SC PRN (14:20)
[2019-11-05 14:42] LABS: INR-International Normal Ratio 1.8; Prothrombin Time 20.9 SEC (12.0-14.7)
--- NOTE | 2019-11-05 15:03 | PRG ---
DATE OF SERVICE: 11/05/2019 SUBJECTIVE: Mr. Strauss is going to sleepy today. He had about 6 to 7 bottles of lactulose last night. He was up on the phone talking to his daughter for a long time last night. The patient's son is at the bedside as his . He is sleepy, but arousable. The nurses note he got hypoglycemic and had to get some D50 earlier today. They are talking to the residents about dropping his insulin doses and making his insulin sliding scale less aggressive. He is without complaints. OBJECTIVE: VITAL SIGNS: Blood pressure 115/50, pulse 75, temperature 98. GENERAL: He is frail, cachectic with temporal muscle wasting. He has a shifting dullness and fluid wave. Trace edema. White count 1.6, hemoglobin 7.4, platelet count 18,000. INR 1.8. Sodium 135, potassium 4.4, BUN and creatinine 82 and 1.35. Urine showed gram-negative rods on . ASSESSMENT: 1. Cirrhosis, end-stage with complications of anasarca, hepatorenal syndrome, and hepatic encephalopathy. 2. Severe prerenal azotemia. We would continue the albumin infusions. 3. Severe thrombocytopenia. 4. Portal hypertension. Reviewing his medicines with no overt medicines that should cause this. There has been no signs of hepatoma. Could stop his Protonix to see if maybe that is causing part of the issue, but I think this is all portal hypertension. 5. Hepatic encephalopathy. We will avoid all sedatives. Continue lactulose and rifaximin. 6. Agree with plans for palliative care or at least obtaining a DNR status. I talked to the family that really his liver is about at the end as evidenced by his hypoglycemia that occurs very easily in his hepatic encephalopathy that he slips into very easily. We will follow along with you. Job ID: [id number]
[2019-11-05] MEDS ORDERED: Insulin Glargine 30 UNITS in Pre-Filled Syringe 1 EACH SC SCH (15:20)
[2019-11-05] MEDS: Albumin 25% 25 GM/100 ML BOT IVPB SCH ×2 (16:31→23:10)
--- NOTE | 2019-11-05 16:39 | EKG ---
Test Reason : Blood Pressure : / mmHG Vent. Rate : 089 BPM Atrial Rate : 089 BPM P-R Int : 204 ms QRS Dur : 066 ms QT Int : 388 ms P-R-T Axes : 078 -15 042 degrees QTc Int : 472 ms Normal sinus rhythm Nonspecific ST and T wave abnormality Prolonged QT Abnormal ECG Confirmed by ANTHONY DE LA CRUZ M.D. ([id number]), non linear editor VANGIE CARL ([id number]) on 11/05/2019 4:39:06 PM Referred By: Confirmed By:ANTHONY DE LA CRUZ M.D.
[2019-11-05] MEDS ORDERED: Dextrose 50% Abboject 50 ML SYRINGE SLOW IVP PRN (16:57)
--- NOTE | 2019-11-05 19:37 | PRG ---
DATE OF SERVICE: 11/05/2019 SUBJECTIVE: Hong Strauss has no complaints. OBJECTIVE: GENERAL: He is in no distress. VITAL SIGNS: Heart rate is 50, blood pressure 100/54, respiratory rate is 11. LUNGS: Clear. HEART: Regular rhythm. ABDOMEN: Soft. EXTREMITIES: Without edema. NEUROLOGIC: Grossly nonfocal. LABORATORY DATA: White count 2.2, hemoglobin 7.5, platelets 16. Hemoglobin 7.4 yesterday. Electrolytes are normal. BUN was 82, creatinine 1.35. Intake and output were 2795. IMPRESSION: 1. Hepatic encephalopathy. 2. Elevated BUN with a recent decompensation of his hepatic encephalopathy. I would still wonder if there is blood in his gut, but he has not been GI bleeding. 3. Severe thrombocytopenia, most likely associated with his severe liver disease that is end stage. I would agree with a do not resuscitate status and palliative care. There are very few therapeutic options. There is no family at the bedside when I saw him today. Job ID: [id number]
[2019-11-05] MEDS: Propranolol 40 MG TAB PO SCH (20:13)
[2019-11-05] MEDS: Famotidine 20 MG TAB PO SCH (20:19)
[2019-11-06 04:12] LABS: Anion Gap 13 mmol/L (10-20); BUN (Urea Nitrogen) 61 mg/dL (8.4-25.7); Calc. Creatinine Clearance 62 mL/min (70-130); Calcium 8.4 mg/dL (7.8-10.44); Carbon Dioxide 20 mmol/L (23-31); Chloride 108 mmol/L (98-107); Estimated GFR-MDRD 70; Glucose 93 mg/dL (80-115); Potassium 3.9 mmol/L (3.5-5.1); Sodium 137 mmol/L (136-145)
[2019-11-06 04:50] LABS: Platelet Count 13 thou/uL (130-400)
[2019-11-06 06:08] LABS: #Lymphocytes 0.4 thou/uL (1.20-3.40); #Monocytes 0.2 thou/uL (0.11-0.59); #Neutrophils 0.9 thou/uL (1.40-6.50); %Eosinophils 2.5 % (0.0-10.0); %Monocytes 13.9 % (0.0-10.0); %Neutrophils 60.6 % (42.0-75.0); Anisocytosis SLIGHT = 6-15 cells (100X) (0-5/hpf); Hemoglobin 6.7 g/dL (14.0-18.0); MDiff Complete? YES; Mean Corpuscular HGB CONC 35.6 g/dL (32.0-36.0); Mean Corpuscular Hemoglobin 34.4 pg (27.0-31.0); Mean Corpuscular Volume 96.4 fL (78.0-98.0); Mean Platelet Volume 12.6 fL (7.4-10.4); Platelet Morphology Comment Appears Decreased; Polychromasia SLIGHT = 2-3 cells (100X) (0-2/hpf); RBC Distribution Width 17.4 % (11.5-14.5); Red Blood Cell (RBC) Count 1.95 mill/uL (4.70-6.10); White Blood Cell (WBC) Count 1.5 thou/uL (4.8-10.8)
[2019-11-06] MEDS: Albumin 25% 25 GM/100 ML BOT IVPB SCH (06:12)
--- NOTE | 2019-11-06 06:47 | PDOC.FM ---
Addendum entered and electronically signed by Nicolás Lobo DO 11/06/19 09: 24: Pt seen and examined at bedside. Pt seen regularly in clinic by myself, did not recognize me this am. Episodes of hypoglycemia and poor po intake. Hold all insulin today and monitor BG. Was seen by transplant team in [place] and did not meet criteria for transplant. MELD-Na score actually imrpvoed from previous, unlikely candidate for transplant. Appears hepatorenal syndrome with continued confusion, increasing ammonia and persistently elevated BUN with declinig pancytopenia. Hospice care being considered. Overall, agree with current plan. PE: GEN: ill appearing HEENT: NCAT, scleral icterus CV: RRR No MRG Resp: CTABL no wrr Abd: distended, nt, bsx4 Psych: confused, delayed speech, depressed affect a/p: - agree with current amangement - consider transition to NH, await specialist recommendations - hold insulin given recurrent hypoglycemia Original Note: - Subjective Subjective: Pt is awake in bed. Pt A&Ox3. No acute events reported overnight. Denies having BM overnight. Pt denies any n/v. Pt denies any abdominal pain. Pt denies any chest pain or SOB. Denies any urinary sx's or burning with urination. Pt reports having some pain in his hands. Chronic problem from past wrecks and surgery. - Objective Vital Signs & Weight: Vital Signs (12 hours) Temp Pulse Ox 11/06/19 03:06 98.2 F 11/05/19 23:14 98.0 F 11/05/19 20:30 97.0 F L 11/05/19 20:00 96 Weight Admit Weight 60.509 kg Weight 69.513 kg Most Recent Monitor Data Heart Rate from ECG 65 NIBP 126/57 NIBP BP-Mean 80 Respiration from ECG 20 SpO2 95 I&O: 11/04/19 11/05/19 11/06/19 06:59 06:59 06:59 Intake Total 2753 3495 4860 Output Total 2060 700 1750 Balance 693 1895 3110 Result Diagrams: 11/06/19 03:38 11/06/19 03:38 Phys Exam - Physical Examination Constitutional: NAD HEENT: PERRLA, moist MMs Neck: no nodes, supple, full ROM Pt juandiced. Respiratory: no wheezing, no rales, no rhonchi, clear to auscultation bilateral Cardiovascular: RRR, no significant murmur, no rub Gastrointestinal: non-tender, positive bowel sounds Moderately distended. Umbilical hernia present Musculoskeletal: pulses present Neurological: non-focal, moves all 4 limbs Psychiatric: normal affect, A&O x 3 Skin: no rash, cap refill <2 seconds Dx/Plan (1) Palliative care encounter Code(s): Z51.5 - ENCOUNTER FOR PALLIATIVE CARE Status: Acute (2) Acute worsening of stage 3 chronic kidney disease Code(s): N18.3 - CHRONIC KIDNEY DISEASE, STAGE 3 (MODERATE) Status: Acute (3) Cirrhosis Code(s): K74.60 - UNSPECIFIED CIRRHOSIS OF LIVER Status: Chronic Qualifiers: Ascites presence: without ascites (4) Hypertension associated with stage 3 chronic kidney disease due to type 2 diabetes mellitus Code(s): E11.22 - TYPE 2 DIABETES MELLITUS W DIABETIC CHRONIC KIDNEY DISEASE; I12.9 - HYPERTENSIVE CHRONIC KIDNEY DISEASE W STG 1-4/UNSP CHR KDNY; N18.3 - CHRONIC KIDNEY DISEASE, STAGE 3 (MODERATE) Status: Chronic (5) Insulin dependent diabetes mellitus Code(s): E11.9 - TYPE 2 DIABETES MELLITUS WITHOUT COMPLICATIONS; Z79.4 - CORRECTION (CURRENT) USE OF INSULIN Status: Chronic (6) Methadone dependence Code(s): F11.20 - OPIOID DEPENDENCE, UNCOMPLICATED Status: Chronic (7) Polysubstance abuse Code(s): F19.10 - OTHER PSYCHOACTIVE SUBSTANCE ABUSE, UNCOMPLICATED Status: Chronic - Plan Plan: #Cirrhosis 2/2 Hep C, End Stage - Meld score 24 (14-15% estimated 90 day mortality) previously. Rechecking labs and recalculating - Pt states he was previously treated for Hep C and cured, in [place] -Pt on transplant list with group in [place]. Will try and get in contact with -GI consulted- follow recs. -Palliative care consulted- Plan for [facility] placement with plan for transition to hospice vs possible inpatient hospice #Acute Hepatic Encephalopathy 2/2 Cirrhosis from hep C (treated) - decompensated 11/02 with ammonia 400s and transferred to [facility]. NG placed and patient removed 11/03. -GI consulted, appreciate recommendations -continue albumin infusions -lactulose, titrate to 3-5 BM/day. continue BID rifaximin -held spironolactone and furosemide 2/2 hypotension #Pancytopenia -WBC, Hgb and Plts low. All continue to downtrend today -Hb 6.8. Will transfuse 1 uPRBC at this time. Transfuse plts if below 14069 and shows signs of bleed #Diabetic ulcer bilat LE -Wound care consulted #Hx SVT - Saw by cards last admission and was candidate for ablation but wanted time to think about it. Brother says they are to f/u with Dr Richardson outpt 11/10/19 - On BB qHS #DM II with hypoglycemia - CC diet with ACHS accuchecks. -Pt had episodes of hypoglycemia the last few days. BG stable this AM. Decreased AM lantus dose to 70 units today. Decreased SSI to mild SSI #Chronic Thrombocytopenia - Plts 16. Patient has hx of thrombocytopenia. Will continue to monitor. - only SCDs for anticoagulation - liver doppler showed no portal vein thrombus -Will transfuse if drops below 10 -Likely related to cirrhosis. Follow GI recs. #HFpEF - Last echo 10/12 - Strict I&Os, daily wt - fluid restrict I/Os #ANJEL on CKD 3, Resolved - FeUrea 25, indicates pre-renal -Nephrology, Dr. Bui consulted, appreciate recs -Continuing to improve at this time. Continue to monitor. #Methadone Use for Opioid dependence - Continue methadone at 10mg TID. Patient will be following up outpatient. #Hyperkalemia/hypokalemia -continue to monitor, potassium stable. #HTN - BP low, home meds held Code Status: Full DVT PPx: SCDs GI ppx: Protonix Dispo: Monitor status in IMCU, patient's mental status has improved from yesterday. Will follow GI recs. Pt with ESLD at this time with worsening pancytopenia and frequent hypoglycemia episodes. Palliative care consulted. follow recs. Addendum - Attending - Attending Attestation Date/Time: 11/06/19 1894 I personally evaluated the patient and discussed the management with Dr. Woodard. I agree with the History, Examination, Assessment and Plan documented above with any addition or exceptions noted below. The patient's anemia has worsened. Will transfuse PRBC. Platelets are 13 but without bleeding. Will transfuse platelets if below 10. Continue to work on placement.
[2019-11-06 07:31] LABS: INR-International Normal Ratio 1.8; PTT 30.7 SEC (22.9-36.1); Prothrombin Time 20.9 SEC (12.0-14.7)
[2019-11-06 07:32] LABS: Vancomycin, Trough Less than 1.1 ug/mL
[2019-11-06 07:35] LABS: ALT (SGPT) 19 U/L (8-55); AST (SGOT) 27 U/L (5-34); Albumin 3.8 g/dL (3.4-4.8); Alkaline Phosphatase 47 U/L (40-110); Bilirubin, Direct 0.4 mg/dL (0.1-0.3); Bilirubin, Total 3.2 mg/dL (0.2-1.2); Protein, Total 5.6 g/dL (5.8-8.1)
[2019-11-06] MEDS: HumaLOG 300 UNITS/3 ML VIAL SC SCH ×3 (07:43→17:40)
[2019-11-06] MEDS ORDERED: Insulin Glargine 40 UNITS in Pre-Filled Syringe SC SCH (09:00)
[2019-11-06] MEDS ORDERED: Insulin Glargine 70 UNITS in Pre-Filled Syringe 1 EACH SC SCH (09:00)
[2019-11-06] MEDS: Famotidine 20 MG TAB PO SCH ×2 (10:23→20:31)
[2019-11-06] MEDS: Rifaximin 550 MG TAB PO SCH ×2 (10:23→20:32)
--- NOTE | 2019-11-06 11:38 | PRG ---
DATE OF SERVICE: 11/06/2019 SERVICE: Renal Medicine. SUBJECTIVE: Mr. Strauss is a 64-year-old white male, who was seen by the Renal Service for his acute kidney injury that was a hemodynamically-mediated renal dysfunction. Volume repletion was given and this has improved his renal function dramatically. He voices no new complaints today. The patient denies any chest pain, shortness of breath, nausea, or vomiting. OBJECTIVE: VITAL SIGNS: Blood pressure is 120/49, heart rate 69, respiratory rate 16, temperature 98.6. GENERAL: Awake, alert, comfortable, not in distress. SKIN: Adequate turgor. HEENT: Slightly pale conjunctivae. Anicteric sclerae. NECK: No neck mass. No carotid bruits. No JVD. CHEST: No deformities. LUNGS: Clear breath sounds. HEART: Normal sinus rhythm. No murmur. No gallops. No rubs. ABDOMEN: Globular, soft, nontender. No masses. EXTREMITIES: No edema. No deformities. MEDICATIONS: Medications of November 06, 2019, reviewed. LABORATORY DATA: Laboratories of November 06, 2019, white count 1.5, hemoglobin 6.7, sodium 137, potassium 3.9, chloride 108, carbon dioxide 20, BUN 61, creatinine 1.06, calcium 8.4, AST 27, ALT 19, albumin 3.8. ASSESSMENT AND PLAN: 1. Anemia-blood transfusion 1 unit packed RBC. 2. Acute kidney injury-superimposed hemodynamically-mediated renal dysfunction. Creatinine is much improved and is now normal. There is no indication for any dialytic intervention. Due to the much improved renal function, we will be signing off. Please re-call if needed. Job ID: [id number]
[2019-11-06] MEDS: Sodium Chloride 0.9% 1,000 ML IV SCH ×2 (13:10→23:00)
--- NOTE | 2019-11-06 13:13 | PRG ---
DATE OF SERVICE: 11/04/2019 SUBJECTIVE: Mr. Strauss reports he met palliative care today and has decided to change to DNR status. The nurse notes he has had some slight oozing from his nose and his IV sites. His platelet count has dropped. He has had no bowel movements today, but he has been very clear. PRESENT MEDICATIONS: 1. Tylenol p.r.n. 2. D5W p.r.n. 3. Insulin sliding scale. 4. Lactulose 30 q.i.d. 5. Methadone 10 mg t.i.d. 6. Protonix 40 mg p.o. daily. 7. Inderal 40 mg at bedtime. 8. Rifaximin 550 b.i.d. 9. Normal saline at 150/hour. 10. Albumin 25 g IV q.8. OBJECTIVE: VITAL SIGNS: Blood pressure 146/62, O2 saturation 100%, pulse blood pressure 133/62, weight 140. GENERAL: He is alert and oriented now. He confirms to me that he wishes to move to a DNR status. LUNGS: Clear. HEART: Regular rate and rhythm without clicks, rubs, or murmurs. ABDOMEN: Soft and nontender. EXTREMITIES: No clubbing, cyanosis, or edema. keeps bleeding, so we could keep stabbing it. LABORATORY DATA: This morning, white count 1.6, hemoglobin 7.4, platelet count 18,000, this is down from 4.6, 10, and 39,000, this may be dilutional in someway. INR was 1.8, unchanged. Glucose is 400 to 100 today. Sodium 143, potassium BUN and creatinine 95 and 1.61, bilirubin is 3, albumin 3.5, protein 5.7, ASSESSMENT: 1. Cirrhosis, end-stage liver disease. 2. Severe prerenal azotemia. No signs of acute GI blood loss to explain the elevated BUN. 3. Severe pancytopenia. Today's counts maybe a little bit lower than normal received lots of IV fluids and albumin over the past 24 hours. 4. Hepatic encephalopathy, much better today. Although he has had no bowel movements today, he has had three doses of lactulose. 5. Hypokalemia, replaced. RECOMMENDATIONS: 1. Repeat blood count tomorrow. If blood count drops below 7, I gave 1 unit of blood if he so desires. 2. We will decrease IV fluids to 100 an hour from 150 an hour. 3. I have asked the nurse to give a next dose of lactulose if he does not have a bowel movement in the next couple of hours. We will follow along with you. Job ID: [id number]
--- NOTE | 2019-11-06 13:18 | PRG ---
DATE OF SERVICE: 11/06/2019 SUBJECTIVE: Mr. Strauss is fairly awake today. He is getting some blood. I talked with the nurses. He has had no bowel movements today. He had diarrhea stool yesterday with his lactulose that does not appear bloody or melenic. OBJECTIVE: VITAL SIGNS: Temperature is 98, blood pressure is 120/49, pulse is 71. GENERAL: He is alert and oriented. He is pale. He has temporal wasting. He has muscle wasting. LUNGS: Clear. Decreased breath sounds at the bases. ABDOMEN: Slightly protuberant. EXTREMITIES: No clubbing, cyanosis, or edema. MEDICATIONS: Medication list reviewed. His insulin doses have been adjusted. He is on Pepcid for ulcer prophylaxis. LABORATORY STUDIES: White count 1.5, hemoglobin 6.7, platelets 13,000, INR 1.8. Sodium 137, potassium 3.9, BUN and creatinine are 61 and 1.06. Bilirubin is 3.2, total, direct is 0.4. AST, ALT are 27 and 19, alkaline phosphatase is 47, albumin 3.8, protein is 5.6. ASSESSMENT: 1. Cirrhosis. 2. Encephalopathy responding to lactulose and Xifaxan. 3. Pancytopenia, much in excess of what it would be typically expected in cirrhosis. It may be reasonable to involve Hematology to see if he has underlying hematologic abnormalities. 4. Diabetes with recurrent hypoglycemia. Likely he has a low reserve to tolerate this with his severely decreased liver function. His insulin down. 5. Severe thrombocytopenia with platelets of 14,000. He has had nose bleeding. 6. Chronic kidney disease with dehydration. He is receiving IV fluids and albumin. I think his albumin can be stopped as his albumin level is pretty good now and he is receiving blood. 7. He is not showing any overt signs of bleeding. he is not a candidate for endoscopy with his platelet count. There is really nothing to do endoscopic victoria. It may be reasonable again to involve Hematology in his care and see if they have any opinion on his severe thrombocytopenia and severe leukocytosis, which seem to be in excess of what would be expected with his albumin which is actually pretty good. 8. Drop in hemoglobin from 7.5 to 6.7. It was 10.5 on the . A lot of this is probably dehydration. He has received IV fluid 150 mL an hour as he was very dry with a BUN of over 100 just a few days ago. BUN now is under 61. We would continue the IV fluids, but stop the albumin. Job ID: [id number]
--- NOTE | 2019-11-06 13:43 | PRG ---
DATE OF SERVICE: 11/06/2019 SUBJECTIVE: Hong Strauss is oriented to person, place, and day. OBJECTIVE: VITAL SIGNS: Blood pressure is 125/60, heart rate is 70, and respiratory rate is 23. LUNGS: Clear. HEART: Regular rhythm. ABDOMEN: Soft, consistent with ascites. EXTREMITIES: Without asymmetry or edema. LABORATORY DATA: White count 1.5, hemoglobin 6.7, and platelets 13,000. Electrolytes are normal, BUN 61, creatinine 1.06. IMPRESSION: 1. Status post hepatic encephalopathy. 2. End-stage cirrhosis. 3. Anemia of chronic disease combined with blood loss anemia. 4. Thrombocytopenia, most likely related to hypersplenism. PLAN: He is clinically stable. He could move out of the intermediate care unit to a medical bed in my opinion. Discharge planning/hospice care should be arranged. Job ID: [id number]
[2019-11-06] MEDS: METHadone HCl 10 MG TAB PO SCH (20:32)
[2019-11-06] MEDS: Propranolol 40 MG TAB PO SCH (20:32)
[2019-11-07] MEDS: METHadone HCl 10 MG TAB PO SCH (05:10)
[2019-11-07 05:18] LABS: Anion Gap 13 mmol/L (10-20); BUN (Urea Nitrogen) 54 mg/dL (8.4-25.7); Calc. Creatinine Clearance 64 mL/min (70-130); Calcium 8.2 mg/dL (7.8-10.44); Carbon Dioxide 19 mmol/L (23-31); Chloride 109 mmol/L (98-107); Estimated GFR-MDRD 64; Glucose 210 mg/dL (80-115); Potassium 4.9 mmol/L (3.5-5.1); Sodium 136 mmol/L (136-145)
[2019-11-07 05:24] LABS: #Lymphocytes 0.4 thou/uL (1.20-3.40); #Monocytes 0.4 thou/uL (0.11-0.59); #Neutrophils 1.9 thou/uL (1.40-6.50); %Basophils 0.1 % (0.0-1.0); %Eosinophils 1.1 % (0.0-10.0); %Lymphocytes 14.2 % (21.0-51.0); %Monocytes 13.8 % (0.0-10.0); %Neutrophils 70.7 % (42.0-75.0); MDiff Complete? YES; Mean Corpuscular HGB CONC 36.5 g/dL (32.0-36.0); Mean Corpuscular Hemoglobin 35.5 pg (27.0-31.0); Mean Corpuscular Volume 97.2 fL (78.0-98.0); Mean Platelet Volume 12.2 fL (7.4-10.4); Platelet Count 10 thou/uL (130-400); Platelet Morphology Comment Appears Decreased; Polychromasia SLIGHT = 2-3 cells (100X) (0-2/hpf); RBC Distribution Width 17.5 % (11.5-14.5); Red Blood Cell (RBC) Count 2.26 mill/uL (4.70-6.10); White Blood Cell (WBC) Count 2.7 thou/uL (4.8-10.8)
--- NOTE | 2019-11-07 06:05 | PDOC.FM ---
- Subjective Subjective: Patient is AOx3 this morning. Reports right back aching and right thigh is aching. Denies numbness/tingling bilat lower extremities. States he is otherwise feeling well. Platelets of 10 this morning. No s/s bleeding overnight per nursing. Patient had 2 bowel movements overnight and 1 yesterday. He received no long acting insulin yesterday per nursing. He had multiple lows the day prior (thursday) on 40 units of long acting insulin. He was not eating/drinking well on thursday until late in the day. - Objective Vital Signs & Weight: Vital Signs (12 hours) Temp Pulse Ox 11/07/19 03:54 99.5 F 11/07/19 01:27 100 11/06/19 23:55 99.3 F 11/06/19 20:00 98 11/06/19 19:37 98.9 F Weight Admit Weight 60.509 kg Weight 71.242 kg Most Recent Monitor Data Heart Rate from ECG 70 NIBP 126/60 NIBP BP-Mean 82 Respiration from ECG 18 SpO2 95 I&O: 11/05/19 11/06/19 11/07/19 06:59 06:59 06:59 Intake Total 3495 4860 5460 Output Total 700 1750 2500 Balance 2795 3110 2960 Result Diagrams: 11/07/19 03:48 11/07/19 03:48 Phys Exam - Physical Examination Constitutional: NAD AOx3 Respiratory: no wheezing, clear to auscultation bilateral Cardiovascular: RRR, no significant murmur Gastrointestinal: soft, non-tender Musculoskeletal: no edema diminished right posterior tibial pulse; 2+ L post tib & bilat dors pedi SCDs not applied Neurological: non-focal, moves all 4 limbs Psychiatric: normal affect, A&O x 3 Skin: no rash Deviation from normal: pale appearing Dx/Plan (1) Acute encephalopathy Code(s): G93.40 - ENCEPHALOPATHY, UNSPECIFIED Status: Acute (2) SVT (supraventricular tachycardia) Code(s): I47.1 - SUPRAVENTRICULAR TACHYCARDIA Status: Acute (3) Thrombocytopenia Code(s): D69.6 - THROMBOCYTOPENIA, UNSPECIFIED Status: Acute (4) Chronic back pain Code(s): M54.9 - DORSALGIA, UNSPECIFIED; G89.29 - OTHER CHRONIC PAIN Status: Chronic (5) Chronic kidney disease, stage 3 Status: Chronic (6) Cirrhosis Code(s): K74.60 - UNSPECIFIED CIRRHOSIS OF LIVER Status: Chronic Qualifiers: Ascites presence: without ascites (7) Hypertension associated with stage 3 chronic kidney disease due to type 2 diabetes mellitus Code(s): E11.22 - TYPE 2 DIABETES MELLITUS W DIABETIC CHRONIC KIDNEY DISEASE; I12.9 - HYPERTENSIVE CHRONIC KIDNEY DISEASE W STG 1-4/UNSP CHR KDNY; N18.3 - CHRONIC KIDNEY DISEASE, STAGE 3 (MODERATE) Status: Chronic (8) Insulin dependent diabetes mellitus Code(s): E11.9 - TYPE 2 DIABETES MELLITUS WITHOUT COMPLICATIONS; Z79.4 - [employer] (CURRENT) USE OF INSULIN Status: Chronic (9) Methadone dependence Code(s): F11.20 - OPIOID DEPENDENCE, UNCOMPLICATED Status: Chronic (10) Polysubstance abuse Code(s): F19.10 - OTHER PSYCHOACTIVE SUBSTANCE ABUSE, UNCOMPLICATED Status: Chronic (11) Diabetic ulcer of both feet Code(s): E11.621 - TYPE 2 DIABETES MELLITUS WITH FOOT ULCER; L97.519 - NON-PRS CHRONIC ULCER OTH PRT RIGHT FOOT W UNSP SEVERITY; L97.529 - NON-PRESSURE CHRONIC ULCER OTH PRT LEFT FOOT W UNSP SEVERITY Status: Acute - Plan Plan: #Cirrhosis 2/2 Hep C, End Stage - Meld score 21 (7-10% estimated 90 day mortality) - GI consulted- follow recs. - Palliative care consulted- Plan for jail placement with plan for transition to hospice vs possible inpatient hospice - Pt states he was previously treated for Hep C and cured, in [place]. Pt on transplant list with group in [place]. #Acute Hepatic Encephalopathy 2/2 Cirrhosis from hep C (treated) - decompensated 11/02 with ammonia 400s and transferred to [facility]. NG placed and patient removed 11/03. -GI consulted, appreciate recommendations -Dc albumin, continue IVF -lactulose 30 mg QID, titrate to 3-5 BM/day. Continue BID rifaximin -held spironolactone and furosemide 2/2 hypotension #Pancytopenia - WBC, Hgb and Plts low. Received 1 u PRBC 11/06. Platelets of 10 this AM - Transfuse plts if below 56484 and shows signs of bleed, no bleeding overnight per nursing - Plan to consult hematology #Diabetic ulcer bilat LE -Wound care consulted #Hx SVT - Saw by cards last admission and was candidate for ablation but wanted time to think about it. Brother says they are to f/u with Dr Richardson outpt 11/10/19 - On BB qHS #DM II with hypoglycemia - CC diet with ACHS accuchecks. -30 units insulin glargine today, 7 u TID-WM short acting today. Mild SSI. #Acute on Chronic Severe Thrombocytopenia - Severe this AM, Plts 10. Patient has hx of thrombocytopenia. - only SCDs for anticoagulation, check bilat LE Sono today for DVTs as diminished Rt pulse - liver doppler showed no portal vein thrombus -Will transfuse if drops below 10 and shows signs of bleeds; no bleeding overnight -Plan to consult hematology today #HFpEF - Last echo 10/12 - Strict I&Os, daily wt - fluid restrict I/Os #ANJEL on CKD 3, Resolved - FeUrea 25, indicates pre-renal - Nephrology, Dr. Bui consulted, appreciate recs. - Improved, nephrology signed off #Methadone Use for Opioid dependence - Continue methadone at 10mg TID. Patient will be following up outpatient. #Hyperkalemia/hypokalemia -continue to monitor, potassium stable. #HTN - BP low, home meds held Code Status: Full DVT PPx: SCDs GI ppx: Protonix Dispo: Monitor status in IMCU, patient's mental status AOx3 today. Will follow GI recs. Pt with ESLD at this time with worsening pancytopenia and frequent hypoglycemia episodes. Plan to consult hematology today. Palliative care consulted, discussing hospice with patient and family. Addendum - Attending - Attending Attestation Date/Time: 11/07/19 1000 I personally evaluated the patient and discussed the management with Dr. Clarisse Huizar I agree with the History, Examination, Assessment and Plan documented above with any addition or exceptions noted below. Patient A&Ox4 today. Per resident, marked improvement from prior days during hospitalization. Exam unremarkable otherwise. Platelets now down to 10K. Likely 2/2 cirrhosis but will consult Heme/Onc per GI recs. May need platelet transfusion but will defer to their judgment. I personally had a long conversation with the patient regarding goals of care. Nursing stated that the patient was "tired of being in the hospital and having to come back repeatedly to the hospital." Patient states he wants to go home and not have to come back to the hospital. I discussed a variety of palliative care options for him including hospice. He states he would like to go home with hospice. Will place order for screening and to arranged outpatient services today. I do not think at this time he qualifies for inpatient hospice but will defer to hospice staff to make final decision. Will start levaquin for UTI today. Space out methadone dosing to BID due to somnolence and may need to decrease to QD if still experiencing AMS with methadone.
[2019-11-07] MEDS ORDERED: HumaLOG 300 UNITS/3 ML VIAL SC SCH (06:42)
[2019-11-07] MEDS ORDERED: Insulin Glargine 30 UNITS in Pre-Filled Syringe 1 EACH SC SCH (06:42)
--- NOTE | 2019-11-07 08:44 | PRG ---
DATE OF SERVICE: 11/04/2019 SUBJECTIVE: oHng Strauss was evaluated. He was in bed, trying to eat. He picked apart his hamburger fairly well and just had crumbled ground meat on his plate. So obviously, he is still little encephalopathic. OBJECTIVE: VITAL SIGNS: Heart rate is in 70s, blood pressure 114/53, respiratory rate is in the teens, oximetry is 100%. LUNGS: Clear. HEART: Regular rate and rhythm. ABDOMEN: Soft. LABORATORY DATA: White count 1.6, hemoglobin 7.4, and platelets 18,000. Glucoses fluctuated between 142 and 412 today. IMPRESSION: 1. Hepatic encephalopathy. 2. Cirrhosis. 3. Diabetes. 4. Diabetes wounds. 5. Chronic kidney disease. 6. History of medical noncompliance with his lactulose. PLAN: Continue supportive care. His prognosis was explained to the family for the rest of this year and into the next year is fairly poor. Job ID: [id number]
--- NOTE | 2019-11-07 08:56 | ULT ---
Bilateral lower extremity venous duplex exam: HISTORY: Bilateral leg pain and swelling. COMPARISON: None. FINDINGS: Real-time color Doppler evaluation of the right and left lower extremities were performed f rom groin to calf. This includes evaluation the common femoral, superficial and profunda femoral, saphenous, popliteal and posterior tibial veins. This shows a patent deep venous system. There is normal compressibility and augmentation. IMPRESSION: No evidence of DVT of either lower extremity.
[2019-11-07] MEDS ORDERED: Ciprofloxacin 500 MG TAB PO SCH (09:00)
[2019-11-07] MEDS: Famotidine 20 MG TAB PO SCH (09:47)
[2019-11-07] MEDS: Rifaximin 550 MG TAB PO SCH (09:47)
[2019-11-07] MEDS: Sodium Chloride 0.9% 1,000 ML IV SCH (09:49)
[2019-11-07] MEDS ORDERED: HumaLOG 300 UNITS/3 ML VIAL SC PRN (10:03)
--- NOTE | 2019-11-07 12:04 | PRG ---
DATE OF SERVICE: 11/07/2019 SUBJECTIVE: Hong Strauss is in no distress. He ate most of his breakfast. OBJECTIVE: VITAL SIGNS: He is afebrile. Oximetry is 95% on room air, blood pressure has been stable. Heart rate is in the 70s. LUNGS: Clear. HEART: Regular rhythm. ABDOMEN: Consistent with some mild amount of ascites. LABORATORY DATA: White count 2.7, hemoglobin 8.0, platelets 10,000. Sodium 136, potassium 4.9, chloride 109, bicarb 19, BUN 54, and creatinine 1.14. IMPRESSION: 1. Advance/end-stage cirrhosis with recurrent hepatic encephalopathy. 2. Make sure blood loss anemia and anemia of chronic disease. 3. Escherichia coli urinary tract infection. It is reasonable for him to go out of the intermediate care unit to a medical bed. Placement will be the next issue that has to be addressed, and no cardiac rhythm issues at this point in time, so he can go to a medical bed. Job ID: [id number]
--- NOTE | 2019-11-07 13:03 | PRG ---
DATE OF SERVICE: 11/07/2019 SUBJECTIVE: Mr. Strauss is pretty awake today. He has been eating. OBJECTIVE: Temperature is running around 99.0 to 99.5, heart rate 75, blood pressure 105/56. GENERAL: He is cachectic and thin. He is sitting up in the side of the bed. He is alert and oriented. He has slight fluid wave in his abdomen. LABORATORY DATA: White count 2.7, hemoglobin 8, platelet count 10,000. Sodium 136, potassium 4, BUN and creatinine 54 and 1.14. ASSESSMENT: 1. Severe dehydration, improving. 2. Hepatic encephalopathy, difficult to control with lactulose and Xifaxan. 3. Chronic pain, on methadone. 4. End-stage liver disease. 5. Severe thrombocytopenia. This is out of proportion liver disease. He may have a myelodysplastic syndrome or other process. Would defer to primary care to work that up. 6. I talked with the patient. Last week, he talked with Hospice and Palliative Care, and he has made a decision to move along those lines and would like to go home with his family. Apparently, his family is willing to help take care of him at home. RECOMMENDATIONS: My recommendation is if he is going to go home with hospice care that his lactulose and Xifaxan not be stopped, this will keep him comfortable at home. Also would use very minimal insulin if any at all at home, so we will not risk of hypoglycemia. If the decision is made not to proceed with hospice with this platelet count of 10,000. It may be reasonable for Hematology seen, but again I do not think there is much they could do if he has a myelodysplastic syndrome with his other medical issues. We will follow from a distance at this time if I can be of any further assistance either with his discharge medications or any other issues in his care. Please do not hesitate to contact me. Job ID: [id number]
[2019-11-07 13:13] VITALS: BP 136/69
[2019-11-07 13:30] VITALS: BMI 23.8
--- NOTE | 2019-11-07 14:55 | PDOC.PALPN ---
Palliative Progress Note - Subjective Awake, alert. States he has mild discomfort. Continued weakness, fatigue - Objective Vital Signs: Vital Signs - Most Recent Temp Pulse Resp BP Pulse Ox 99.5 F 90 16 136/69 95 11/07/19 11:08 11/07/19 10:57 11/02/19 15:00 11/07/19 10:57 11/07/19 08:00 - Physical Exam Constitutional: emaciated, ill appearing HEENT: EOMI, moist MMs, scleral icterus Deviation from normal: Mildly labored respirations with extensive conversation Cardiovascular: no significant murmur, RRR Gastrointestinal: positive bowel sounds Deviation from normal: Distended, tympani Genitourinary: continent Musculoskeletal: no clubbing Neurology: moves all 4 limbs Skin: cap refill <2 seconds, bruising Deviation from normal: Icteric Psychiatric: A&O x 3, depressed, flat affect - Assessment (1) Palliative care encounter Code(s): Z51.5 - ENCOUNTER FOR PALLIATIVE CARE Current Visit: Yes Status: Acute (2) Physical deconditioning Code(s): R53.81 - OTHER MALAISE Current Visit: Yes Status: Acute (3) Acute encephalopathy Code(s): G93.40 - ENCEPHALOPATHY, UNSPECIFIED Current Visit: No Status: Acute (4) Acute worsening of stage 3 chronic kidney disease Code(s): N18.3 - CHRONIC KIDNEY DISEASE, STAGE 3 (MODERATE) Current Visit: No Status: Acute (5) Cirrhosis Code(s): K74.60 - UNSPECIFIED CIRRHOSIS OF LIVER Current Visit: No Status: Chronic Qualifiers: Ascites presence: without ascites (6) Methadone dependence Code(s): F11.20 - OPIOID DEPENDENCE, UNCOMPLICATED Current Visit: No Status : Chronic - Plan Plan: Lengthy conversation related to goals of care and end of life. Discussed current disease processes and trajectory to decline. Patient wishes to go home with hospice. Family concern is that he will become weaker and that they can not care for him. Plan is to return home for [facility] with Hospice, then if he becomes unable to assist in his care he will transition [place] a [place] [facility] with hospice. Also discussed with Kenneth patient brother. Patient expressed grief in relation to end of life, therapeutic listening. Also communicated with Ralph spiritual care and he will visit with patient. Choice letter for hospice completed. JG order for hospice placed and Samanta To notified. [60] minutes spent on this encounter with >50% of the time in counseling and coordination of care. - ROS Constitutional: alert, weakness Eyes: other (Denies visual disturbance) ENT: alteration in dentition Respiratory: other (Negative for cough) Cardiology: other (Negative for palpitation, chest pain) Gastrointestinal: other (Negative for nausea, vomiting, constipaiton) Psychological: depression
[2019-11-07 15:25] VITALS: TEMP 99.4
[2019-11-07] MEDS ORDERED: METHadone HCl 10 MG TAB PO SCH (21:00)
--- NOTE | 2019-11-09 04:27 | PQF ---
NEEL LYNN,Edwin Cooper MD [id number] T4-A- [id number] CLINICAL DOCUMENTATION CLARIFICATION FORM: POST DISCHARGE Addendum to original discharge summary date: ____ Late entry note date: __ DATE: 11/09/2019 ATTN:Edwin Vidal MD Please exercise your independent, professional judgment in responding to the clarification form. Clinical indicators are provided on the bottom of this form for your review Please check appropriate box(s): HEART FAILURE: B. ACUITY [ ] Acute [ ] Acute on Chronic [ ] Chronic [ ] Other diagnosis [ ] Unable to determine In addition, please specify: Present on Admission (POA): [ ] Yes [ ] No [ ] Unable to determine For continuity of documentation, please document condition throughout progress notes and discharge summary. Thank You. CLINICAL INDICATORS - SIGNS / SYMPTOMS / LABS Elevated BNP 104.1 on 11/02 - Documented in Laboratory HFpEF - Documented in Family Medicine PNS on 10/25 by Natalia Souza MD Last echo 10/12 , Strict I&Os. daily wt - Documented in Family Medicine PNS on 10/25 by Natalia Souza MD RISKS: SVT CKD 3 Hypertension ANJEL TREATMENTS: Furosemide 80 mg - Documented in Medication report Will restart Lasix - Documented in Family Medicine PNS on 10/27 by Geovany Proctor MD Continue home Lasix - Documented in Family Medicine PNS on 10/31 by Mallory Pelayo DO Decrease Lasix to 60 BID due to ANJEL - Documented in Family Medicine PNS on by Jess Huizar MD [employer] Documentation Manager [employer] Winform Viewer (This form is maintained as a part of the permanent medical record) 2014 [employer]. All Rights Reserved Barry [email or web address] [not provided] MTDD
--- NOTE | 2019-11-09 04:51 | PQF ---
[employer] Win[employer] [facility],DEMETRIO SHEIKH MD [id number] [facility] [id number] CLINICAL DOCUMENTATION CLARIFICATION FORM: POST DISCHARGE Addendum to original discharge summary date: ____ Late entry note date: __ DATE: 11/09/2019 ATTN:DEMETRIO ALEXANDER MD Please exercise your independent, professional judgment in responding to the clarification form. Clinical indicators are provided on the bottom of this form for your review Please check appropriate box(s) to clarify if the following diagnosis has been ruled in or ruled out: Hepatorenal syndrome (CDI/Coding list diagnosis here) [ ] Ruled in diagnosis [ ] Continue to treat [ ] Resolved [ ] Ruled out diagnosis [ ] Cannot rule out diagnosis [ ] Other diagnosis [ ] Unable to determine In addition, please specify: Present on Admission (POA): [ ] Yes [ ] No [ ] Unable to determine For continuity of documentation, please document condition throughout progress notes and discharge summary. Thank You. CLINICAL INDICATORS - SIGNS / SYMPTOMS / LABS Hepatic Encephalopathy - Documented in H&P on 10/25 by Natalia Souza MD ANJEL on CKD 3 improving - Documented in H&P on 10/25 by Natalia Souza MD Creatinine 2.10 on 10/24 , 2.57 on 11/03 and 1.35 on 11/05 - Documented in Laboratory GFR 25, FeUrea 25 indicates pre-renal - Documented in Family Medicine PNS on 11/03 by Jess Huizar MD Hepatorenal syndrome is a possibility - Documented in Consult note 11/04 by Hao Riggins Appears Hepatorenal Syndrome with continued confusion, increasing ammonia and persistently - Documented in Family Medicine PNS on 11/06 by Yamilet Lockhart RISK FACTORS SVT Hypertension DM CHF TREATMENTS Consult nephrology Normal saline @75 ml/h - Documented in H&P on 10/25 by Natalia Souza MD Continue Monitor renal function - Documented in H&P on 10/25 by Natalia Souza MD Lactulose 30 ml Every Hour - Documented in Consult report 11/02 by Pamela Andrade (This form is maintained as a part of the permanent medical record) 2014 [employer]. All Rights Reserved Barry [email or web address] [not provided] MTDD
--- NOTE | 2019-11-10 13:03 | DIS ---
DATE OF ADMISSION: 10/25/2019 DATE OF DISCHARGE: 11/07/2019 RESIDENT: Jess Huizar MD ADMITTING ATTENDING: Gilmar Chatman MD. DISCHARGE ATTENDING: Kenneth Mason MD CONSULTS: 1. Gastroenterology, Dr. Sanchez. 2. Nephrology, Dr. Bui. 3. Oncology, Dr. Adam. 4. Pulmonology, Dr. Beebe. 5. Pulmonology, Dr. Vidal. 6. Palliative, PT, Speech, Wound Care. PROCEDURES: 1. Brain CT, 10/24/2018; chronic finding including atherosclerotic calcification of the cavernous carotid arteries and the distal vertebral artery. No acute finding. 2. Chest x-ray, 10/25/2019; the aorta is tortuous. There is evidence of old granulomatous disease. The lungs are well expanded without focal areas of consolidation, pneumothorax, ronda pulmonary edema, or pleural effusions. 3. Abdomen x-ray, 10/25/2019; impression, enteric tube tip projecting over the gastric body with the side port at the GE junction. Recommended advancing 3 to 4 cm. 4. Abdomen x-ray, 10/25/2019; impression, nasogastric tube in place. 5. Abdominal ultrasound, 11/02/2019; hepatic cirrhosis. Cholelithiasis with gallbladder sludge. Splenomegaly. Numerous focal calcifications of the liver. Evidence for old granulomatous disease. 6. Chest x-ray, 11/04/2019; no acute cardiopulmonary findings. 7. Abdomen ultrasound, 11/04/2019; impression, cirrhosis. Normal directional flow of the hepatic and splenic vasculature. 8. Venogram, 11/07/2019; impression, no evidence of DVT in either lower extremity. PRIMARY DIAGNOSES: 1. End-stage cirrhosis secondary to hepatitis C. 2. Acute hepatic encephalopathy secondary to cirrhosis and hepatitis C. SECONDARY DIAGNOSES: 1. Pancytopenia. 2. Diabetic ulcer, bilateral lower extremities. 3. History of supraventricular tachycardia. 4. Diabetes mellitus type 2 with hypoglycemia. 5. Acute on chronic severe thrombocytopenia. 6. Heart failure, preserved ejection fraction. 7. Acute kidney injury on chronic kidney disease 3, resolved. 8. Methadone use for opioid dependence. 9. Hyperkalemia . 10. Hypertension. 11. Urinary tract infection. DISCHARGE MEDICATIONS: 1. Insulin glargine 30 units subcu every morning. 2. Propranolol 40 mg p.o. at bedtime. 3. Ciprofloxacin 250 mg p.o. b.i.d. 4. Rifaximin 550 mg p.o. b.i.d. 5. Pantoprazole 40 mg p.o. daily. 6. Promethazine 25 mg p.o. t.i.d. p.r.n. for nausea. 7. Metformin 500 mg q.a.m. 8. Lidocaine patch 5%. 9. Insulin aspart/NovoLog 5 units subcutaneously t.i.d. 10. Lactulose 30 mL p.o. b.i.d. to 30 mL p.o. q.i.d. DISCONTINUED MEDICATIONS: 1. . 2. Furosemide 80 mg p.o. b.i.d. 3. Insulin glargine 86 units subcu q.a.m. 4. Propranolol 2 tabs p.o. at bedtime. 5. . HISTORY OF PRESENT ILLNESS/HOSPITAL COURSE: A 64-year-old male with a past medical history of diabetes, cirrhosis, hypertension, SVT, presented with acute hepatic encephalopathy. He was found by his brother and was unresponsive, so EMS was called. Home health, mother, and brother stated that he likely was not taking his prescribed amount of lactulose because he was not having regular bowel movements. In the ED, he received 1 L of fluid, 2 doses of lactulose per rectum, then one amp of D50. The patient's lactulose was titrated to 3 to 5 bowel movements a day; however, he decompensated on 11/02 with the ammonia in the 400s and was transferred to the [facility]. GI was consulted. He was given albumin and placed on IV fluids. His spironolactone and furosemide were held secondary to hypotension. His mentation improved. His MELD score on discharge was 21 with a 7% to 10% estimated 90-day per mortality. However, his treatment course waxed and waned quite dramatically. The patient had pancytopenia. He received 1 unit of packed red blood cells on 11/06. His platelets went as low as 10, during his stay. He was not showing any signs of bleeding, so no platelets were given. The patient has diabetic ulcers in bilateral lower extremity and Wound Care was consulted to get those. History of SVT. The patient was seen by [facility] during his last admission and was a candidate for ablation, but had not decided if he wanted it. He was to follow up with Dr. Richardson on 11/10/2019. He is on a beta lotus at night for this. The patient is a type 2 diabetic. His insulin regimen was changed throughout his stay depending on how much he has been eating and drinking. The patient had elevated glucose as high as the 400s and low glucoses as well and had to be given multiple amps of D50. He was discharged on 30 units of insulin glargine daily short-acting with meals. On admission, he was taking 86 units of insulin glargine daily. The patient has heart failure with preserved ejection fraction. He was placed on strict fluid restriction with strict I's and O's and daily weights. The patient had ANJEL on CKD 3. Dr. Bui was consulted. The patient was continued on the albumin and then IV fluids for a couple of days and his ANJEL resolved. The patient is on methadone for opiate dependence. On discharge, the patient had end-stage liver disease with worsening pancytopenia and frequent hypoglycemic episodes. Palliative Care was consulted and discussed hospice with the patient and his family. The patient and the family chose to go home on hospice and pursue comfort measures. He was A and O x4 on discharge. The patient stated that he was tired of being in the hospital and having to come back repeatedly to the hospital. The patient was also discharged with medication, Levaquin for UTI. DISPOSITION: Guarded. DISCHARGE INSTRUCTIONS: 1. Location: Home hospice. 2. Diet: Diabetic diet. 3. Activity: As tolerated. 4. Followup: Follow up with hospice care. More than 30 minutes was spent discussing discharge with the family and coordinating care by Dr. Kenneth Mason. Job ID: [id number]
--- NOTE | 2019-11-10 13:09 | EKG ---
Test Reason : Blood Pressure : / mmHG Vent. Rate : 083 BPM Atrial Rate : 074 BPM P-R Int : 230 ms QRS Dur : 082 ms QT Int : 404 ms P-R-T Axes : 004 -12 059 degrees QTc Int : 474 ms Sinus rhythm with 1st degree A-V block with Premature supraventricular complexes Otherwise normal ECG Confirmed by STEPHANY CASILLAS ([id number]) on 11/10/2019 1:08:32 PM Referred By: HARSHAL Confirmed By:STEPHANY CASILLAS
== END 2019-11-07 16:50 | disposition hospice, home (50) | DRG 442 ==
LOC: ERS 21:24 → ERHOLD 10-25 01:14 → IMCU/EMU 10-25 05:14 → T4-A 10-26 15:09 → IMCU/EMU 11-02 15:19
PROVIDERS: ADMIT Emergency Medicine; ATTEND Emergency Medicine
DX: K72.90 Hepatic failure, unspecified without coma (principal); N17.9 Acute kidney failure, unspecified; I47.1 Supraventricular tachycardia; F11.20 Opioid dependence, uncomplicated; I85.10 Secondary esophageal varices without bleeding; I13.0 Hypertensive heart and chronic kidney disease with heart failure and stage 1 through stage 4 chronic kidney disease, or unspecified chronic kidney disease; E87.1 Hypo-osmolality and hyponatremia; N39.0 Urinary tract infection, site not specified; D61.818 Other pancytopenia; K76.6 Portal hypertension; R65.10 Systemic inflammatory response syndrome (SIRS) of non-infectious origin without acute organ dysfunction; Z79.84 Long term (current) use of oral hypoglycemic drugs; Z79.4 Long term (current) use of insulin; Z79.899 Other long term (current) drug therapy; K21.9 Gastro-esophageal reflux disease without esophagitis; Z89.429 Acquired absence of other toe(s), unspecified side; N18.3 Chronic kidney disease, stage 3 (moderate); E11.22 Type 2 diabetes mellitus with diabetic chronic kidney disease; E11.649 Type 2 diabetes mellitus with hypoglycemia without coma; T38.3X5A Adverse effect of insulin and oral hypoglycemic [antidiabetic] drugs, initial encounter; K74.60 Unspecified cirrhosis of liver; Z91.14 Patient's other noncompliance with medication regimen; E86.1 Hypovolemia; E86.0 Dehydration; K73.9 Chronic hepatitis, unspecified; E11.621 Type 2 diabetes mellitus with foot ulcer; Z51.5 Encounter for palliative care; Z66 Do not resuscitate; E87.5 Hyperkalemia; E87.6 Hypokalemia; F32.9 Major depressive disorder, single episode, unspecified; B96.20 Unspecified Escherichia coli [E. coli] as the cause of diseases classified elsewhere; G89.29 Other chronic pain; T68.XXXA Hypothermia, initial encounter; R40.2142 Coma scale, eyes open, spontaneous, at arrival to emergency department; R40.2242 Coma scale, best verbal response, confused conversation, at arrival to emergency department; R40.2362 Coma scale, best motor response, obeys commands, at arrival to emergency department; L89.899 Pressure ulcer of other site, unspecified stage; R40.2424 Glasgow coma scale score 9-12, 24 hours or more after hospital admission; E11.622 Type 2 diabetes mellitus with other skin ulcer; D63.8 Anemia in other chronic diseases classified elsewhere; L97.529 Non-pressure chronic ulcer of other part of left foot with unspecified severity; L97.519 Non-pressure chronic ulcer of other part of right foot with unspecified severity
CPT/HCPCS: 36415; 36416; 36430; 51701; 70450; 71045; 74018; 76705; 80048; 80053; 80076; 80202; 81001; 81003; 81015; 82105; 82140; 82533; 82553; 82570; 82805; 83605; 83880; 84300; 84443; 84484; 84540; 85025; 85610; 85730; 86850; 86900; 86901; 87040; 87077; 87086; 87186; 87804; 93005; 93010; 93970; 96361; 96372; 96374; 96375; J1815; J2060; J3480; J7050; P9016; P9047